=== PATIENT | female | born 1970 | race African-American/Black ===

== ENCOUNTER 2017-07-03 13:00 | Inpatient (IN) ==
--- NOTE | 2017-07-02 17:09 | History & Physical Report ---
*Admission Date: 07/02/17 <Estela Horton 07/02/17 17:25> *Chief complaint: sore throat <Estela Horton 07/02/17 17:25> *History of present illness: Ms Rutledge is a 47 year old female who presented to [facility] office with a 2 day history with a sore throat. The pain became worse today; she has been unable to eat or drink and is having difficulty swallowing, talking and opening her mouth. The pain has increased and is now severe. She has had a fever today. She denies cough, RN, chest congestion. She does have PND.. To note: patient did work a full day prior to coming to the office. CBC in the office revealed a WBC of 10.4 with 84% Grans and 12.3% Lymphs. Strep test was negative. Patient was also seen by Dr. Zamora. Patient was then adm to [facility] for IV ABX, pain management and steroids. See orders <Estela Horton 07/02/17 17:25> [facility] History Medical History: Denies:: Atherosclerotic Heart Disease, Cancer, Chronic Obstructive Pulmonary Disease (COPD), Diabetes Mellitus Type 2, Gastroesophageal Reflux Disease(GERD), Hypertension <Estela Horton 07/02/17 17:25> Other Surgeries: Yes: Appendectomy, Hysterectomy-Partial, Tubal Ligation < Estela Horton 07/02/17 17:25> - *Social History Smoking Status: Current every day smoker <Estela Horton 07/02/17 17:25> Tobacco Type: cigarettes <Estela Horton 07/02/17 17:25> Occupational Status: employed <Estela Horton 07/02/17 17:25> *Family Hx:: no Cancer, no Coronary Artery Disease <Estela Horton 07/02/17 17:25> Review of Systems - Constitutional Reports fever(s), Denies body ache(s), Denies headache(s) <Estela Horton 02/08 17:25> - ENT Reports difficulty swallowing, Reports facial pain, Reports mouth pain, Reports neck pain, Reports pain with swallowing, Reports post nasal drip, Reports sore throat, Reports throat swelling, Denies dizziness, Denies ear pain <Estela Horton 07/02/17 17:25> - *Cardiovascular Denies chest pain, Denies shortness of breath <Estela Horton 07/02/17 17:25> - *Respiratory Denies chest congestion, Denies cough, Denies shortness of breath <Estela Horton 07/02/17 17:25> - *Gastrointestinal Reports difficulty swallowing, Denies abdominal pain, Denies constipation, Denies nausea, Denies vomiting <Estela Horton 07/02/17 17:25> - *Genitourinary Reports absent period, Denies difficulty urinating <Estela Horton 07/02/17 17:25> - *Musculoskeletal Denies joint pain, Denies back pain <Estela Horton 07/02/17 17:25> - *Neurologic Denies behavioral changes, Denies unsteadiness, Denies lack of coordination < Estela Horton 07/02/17 17:25> Meds Home Medications Medication Instructions Recorded Confirmed Type No Known Home Medications [No 07/02/17 07/02/17 History Known Home Medications] <Wesley Trent 07/02/17 17:27> Allergies Allergy/AdvReac Type Severity Reaction Status Date / Time No Known Allergies Allergy Unverified 03/11/17 14:53 <Wesley Trent 07/02/17 17:27> Exam Vital signs and Labs for Last 24 Hours: Temp Pulse Resp BP Pulse Ox 99.0 F 93 H 24 123/79 100 07/02/17 17:14 07/02/17 17:14 07/02/17 17:14 07/02/17 17:14 07/02/17 17:14 <Wesley Trent 07/02/17 17:27> I & O for Last 24 hours: Intake & Output 06/30/17 07/01/17 07/02/17 07/03/17 11:59 11:59 11:59 11:59 Weight 175 lb 0.999 oz <Wesley Trent 07/02/17 17:27> - Constitutional mild distress <Estela Horton 07/02/17 17:25> Comments: Appears not to feel well; difficulty with handling her secretions <Estela Horton 07/02/17 17:25> - *Routine HEENT Exam Head: Present: normocephalic, atraumatic <Estela Horton 07/02/17 17:25> Eye: Present: PERRL. Absent: scleral injection <Saskia Hortonhy 07/02/17 17: 25> ENT: Present: mucous membranes moist, external ear normal, TM's clear bilaterally <Saskia Hortonhy 07/02/17 17:25> Comments: Patient can just barely open her mouth. OP erythema but cannot identify tonsils <Saskia Hortonhy 07/02/17 17:25> - *Routine Neck Exam Present: lymphadenopathy, tenderness, swelling. Absent: thyromegaly <Saskia Hortonhy 07/02/17 17:25> Comments: Tender LAD> on the right <Saskia Hortonhy 07/02/17 17:25> - *Routine Respiratory Exam Present: CTA bilaterally <SolEstela 07/02/17 17:25> Comments: good bilateral air movement <SolEstela 07/02/17 17:25> - *Routine Cardiovascular Exam Present: RRR <[facility] 07/02/17 17:25> - *Routine Abdominal Exam Present: soft, normoactive bowel sounds. Absent: tenderness <SolEstela 07/02/17 17:25> - *Routine Extremities Exam Present: full ROM. Absent: edema <SolEstela 07/02/17 17:25> - *Routine Neurological Exam Present: alert, oriented X3 <[facility] 07/02/17 17:25> Assessment and Plan (1) Pharyngitis Current visit: Yes Status: Acute Category: Medical Code(s): J02.9 - Acute pharyngitis, unspecified (2) Pharyngeal dysphagia Current visit: Yes Status: Acute Category: Medical Code(s): R13.13 - Dysphagia, pharyngeal phase (3) Pharyngeal or nasopharyngeal edema Current visit: Yes Status: Acute Category: Medical Code(s): J39.2 - Other diseases of pharynx (4) Pharyngeal pain Current visit: Yes Status: Acute Category: Medical Code(s): J39.2 - Other diseases of pharynx <[place],Wesley - 07/02/17 17:27> (1) Pharyngitis Current visit: Yes Status: Acute Category: Medical Code(s): J02.9 - Acute pharyngitis, unspecified (2) Pharyngeal dysphagia Current visit: Yes Status: Acute Category: Medical Code(s): R13.13 - Dysphagia, pharyngeal phase (3) Pharyngeal or nasopharyngeal edema Current visit: Yes Status: Acute Category: Medical Code(s): J39.2 - Other diseases of pharynx (4) Pharyngeal pain Current visit: Yes Status: Acute Category: Medical Code(s): J39.2 - Other diseases of pharynx <Estela Horton - 07/02/17 16:59> - Assessment and plan all Dx Assessment and Plan for all problems:: Saw patient, agree with above note. <Wesley Trent - 07/02/17 17:27> Rocephin, IVF, IV steriods, CT of the neck, ENT referral, Pain management <Estela Horton - 07/02/17 17:25>
[2017-07-02 17:39] LABS: Albumin Level 3.7 gm/dL (3.4-5.0); Albumin/Globulin Ratio 0.9 (1.1-1.8); Anion Gap 13.5 mEq/L (5-15); Bilirubin,Total 0.4 mg/dL (0.2-1.0); Calcium 9.2 mg/dL (8.5-10.1); Potassium 3.5 mmoL/L (3.5-5.1); Total Protein,Serum 7.7 gm/dL (6.4-8.2)
--- NOTE | 2017-07-03 07:28 | Pharmacy Consult Notes ---
[facility] Pharmacy VTE Monitoring - Patient Demographics Admission date: 07/02/17 Report Date: 07/03/17 Time: 07:28 Allergies/Adverse Reactions: Patient Allergies No Known Allergies Allergy (Unverified 03/11/17 14:53) Height: 1.78 m Weight: 79.407 kg Patient Problems: Current Active Problems Pharyngitis (Acute) Pharyngeal dysphagia (Acute) Pharyngeal or nasopharyngeal edema (Acute) Pharyngeal pain (Acute) - VTE Risk Labs: VTE Related Lab Results BUN 8 mg/dL (7-18) 07/02/17 17:15 Creatinine 1.20 mg/dL (0.55-1.02) H 07/02/17 17:15 Estimated Creat Clear 73 mL/min (0-300) 07/02/17 17:15 Was VTE Risk Assessment Performed: Yes VTE Score: 1 VTE Risk Level: Very Low Risk - Prophylaxis VTE Prophylaxis Ordered?: Yes Types of VTE Prophylaxis: TEDS Knee High Location of Applied Device: Bilateral Lower Extremeties - VTE Diagnosis Confirmed Treatment or plan recommended: Continue Current Treatment
--- NOTE | 2017-07-03 08:22 | Progress Note ---
<Pau Patrick - Last Filed: 07/03/17 08:17> Internal Medicine - PN: Subj *Date: 07/03/17 *Time: 08:17 Interval history: Patient is still unable to swallow her own saliva today. She states she is slightly better than yesterday. She can utter a few words today. Exam Vital signs and Labs for Last 24 Hours: Temp Pulse Resp BP Pulse Ox 99.4 F 89 18 105/63 96 07/03/17 08:02 07/03/17 08:02 07/03/17 08:02 07/03/17 08:02 07/03/17 08:02 Laboratory Results - last 24 hr 07/02/17 17:15: Sodium 141, Potassium 3.5, Chloride 107, Carbon Dioxide 24, Anion Gap 13.5, BUN 8, Creatinine 1.20 H, Estimated Creat Clear 73, Estimated GFR 48 L, Est GFR ( Amer) 59, Glucose 119 H, Calcium 9.2, Total Bilirubin 0.4, AST 19, ALT 28, Alkaline Phosphatase 87, Total Protein 7.7, Albumin 3.7, Globulin 4.0 H, Albumin/Globulin Ratio 0.9 L I & O for Last 24 hours: Intake & Output 06/30/17 07/01/17 07/02/17 07/03/17 11:59 11:59 11:59 11:59 Intake Total 1157 / 1157 Balance 1157 / 1157 Weight 175 lb 1 oz - Constitutional no acute distress - *Routine HEENT Exam Comments: still cannot open mouth enough to see her throat - *Routine Respiratory Exam Present: CTA bilaterally - *Routine Cardiovascular Exam Present: RRR - *Routine Abdominal Exam Present: soft, normoactive bowel sounds. Absent: tenderness - *Routine Extremities Exam Absent: edema Assessment and Plan (1) Pharyngitis Current visit: Yes Status: Acute Category: Medical Code(s): J02.9 - Acute pharyngitis, unspecified (2) Pharyngeal dysphagia Current visit: Yes Status: Acute Category: Medical Code(s): R13.13 - Dysphagia, pharyngeal phase (3) Pharyngeal or nasopharyngeal edema Current visit: Yes Status: Acute Category: Medical Code(s): J39.2 - Other diseases of pharynx (4) Pharyngeal pain Current visit: Yes Status: Acute Category: Medical Code(s): J39.2 - Other diseases of pharynx - Assessment and plan all Dx Assessment and Plan for all problems:: Still awaiting soft tissue CT of the neck. Will consult ENT today. <Wesley Trent - Last Filed: 07/03/17 08:39> Internal Medicine - PN: Subj *Date: 07/03/17 *Time: 08:36 Exam Vital signs and Labs for Last 24 Hours: Temp Pulse Resp BP Pulse Ox 99.4 F 89 18 105/63 96 07/03/17 08:02 07/03/17 08:02 07/03/17 08:02 07/03/17 08:02 07/03/17 08:02 Laboratory Results - last 24 hr 07/02/17 17:15: Sodium 141, Potassium 3.5, Chloride 107, Carbon Dioxide 24, Anion Gap 13.5, BUN 8, Creatinine 1.20 H, Estimated Creat Clear 73, Estimated GFR 48 L, Est GFR ( Amer) 59, Glucose 119 H, Calcium 9.2, Total Bilirubin 0.4, AST 19, ALT 28, Alkaline Phosphatase 87, Total Protein 7.7, Albumin 3.7, Globulin 4.0 H, Albumin/Globulin Ratio 0.9 L I & O for Last 24 hours: Intake & Output 06/30/17 07/01/17 07/02/17 07/03/17 11:59 11:59 11:59 11:59 Intake Total 1157 / 1157 Balance 1157 / 1157 Weight 175 lb 1 oz Radiology Reports for the Last 24 Hours: CT of neck shows probable 2 cm wide, right sided soft tissue abscess Assessment and Plan (1) Pharyngitis Current visit: Yes Status: Acute Category: Medical Code(s): J02.9 - Acute pharyngitis, unspecified (2) Pharyngeal dysphagia Current visit: Yes Status: Acute Category: Medical Code(s): R13.13 - Dysphagia, pharyngeal phase (3) Pharyngeal or nasopharyngeal edema Current visit: Yes Status: Acute Category: Medical Code(s): J39.2 - Other diseases of pharynx (4) Pharyngeal pain Current visit: Yes Status: Acute Category: Medical Code(s): J39.2 - Other diseases of pharynx (5) Abscess of lymph node of neck Current visit: Yes Status: Acute Category: Medical Code(s): L04.0 - Acute lymphadenitis of face, head and neck - Assessment and plan all Dx Assessment and Plan for all problems:: Saw patient, agree with above note. Made her NPO now pending ENT evaluation.
--- NOTE | 2017-07-03 13:47 | Consult Report ---
*Admission Date: 07/02/17 *History of present illness: Ms Rutledge is a 47 year old female who presented to [facility] office with a 2 day history with a sore throat. The pain became worse today; she has been unable to eat or drink and is having difficulty swallowing, talking and opening her mouth. The pain has increased and is now severe. She has had a fever today. She denies cough, RN, chest congestion. She does have PND.. To note: patient did work a full day prior to coming to the office. CBC in the office revealed a WBC of 10.4 with 84% Grans and 12.3% Lymphs. Strep test was negative. Patient was also seen by Dr. Zamora. Patient was then adm to [facility] for IV ABX, pain management and steroids. See orders Review of Systems - ENT Reports difficulty swallowing, Reports neck lump, Reports neck pain, Reports pain with swallowing, Reports sore throat, Reports throat swelling - *Neurologic Denies behavioral changes, Denies unsteadiness, Denies dizziness, Denies headache(s), Denies lack of coordination [facility] History Medical History: Denies:: Atherosclerotic Heart Disease, Cancer, Chronic Obstructive Pulmonary Disease (COPD), Diabetes Mellitus Type 1, Diabetes Mellitus Type 2, Gastroesophageal Reflux Disease(GERD), Hypertension, MRSA Other Surgeries: Yes: Appendectomy, Hysterectomy-Partial, Tubal Ligation Amputation: No - *Social History Educational Level: Completed High School Smoking Status: Current every day smoker Tobacco Type: cigarettes # Packs/Day (cigarettes): 1 #Yrs smoked (if former smoker): 30 Alcohol Intake: current Alcohol Intake Frequency:: 0-2 drinks per day Occupational Status: employed Housing: house Household Members: spouse - Psychiatric History Expresses thoughts of harming self/others: None Suicide Plan Description: No Plan *Family Hx:: no Cancer, no Coronary Artery Disease Meds Home Medications Medication Instructions Recorded Confirmed Type Cyclobenzaprine HCl 10 mg PO Q6HP PRN 07/03/17 07/03/17 History [Cyclobenzaprine 10mg Tab] Ibuprofen [Ibuprofen 800mg Tab] 800 mg PO BIDP PRN 07/03/17 07/03/17 History Allergies Allergy/AdvReac Type Severity Reaction Status Date / Time No Known Allergies Allergy Unverified 03/11/17 14:53 Exam Vital signs and Labs for Last 24 Hours: Temp Pulse Resp BP Pulse Ox 99.4 F 89 18 105/63 96 07/03/17 08:02 07/03/17 08:02 07/03/17 08:02 07/03/17 08:02 07/03/17 08:02 Laboratory Results - last 24 hr 07/02/17 17:15: Sodium 141, Potassium 3.5, Chloride 107, Carbon Dioxide 24, Anion Gap 13.5, BUN 8, Creatinine 1.20 H, Estimated Creat Clear 73, Estimated GFR 48 L, Est GFR ( Amer) 59, Glucose 119 H, Calcium 9.2, Total Bilirubin 0.4, AST 19, ALT 28, Alkaline Phosphatase 87, Total Protein 7.7, Albumin 3.7, Globulin 4.0 H, Albumin/Globulin Ratio 0.9 L I & O for Last 24 hours: Intake & Output 06/30/17 07/01/17 07/02/17 07/03/17 23:59 23:59 23:59 23:59 Intake Total 1397 / 1397 Balance 1397 / 1397 Weight 175 lb 0.999 oz 175 lb 1 oz - *Routine HEENT Exam Comments: This patient was examined on July 03, 2017 because of a 2 day history of dysphagia and pain in the right side of her throat. She apparently had right dental work done on July 01 and then developed the symptoms of soreness in the right side of her face and right neck as well as the dysphagia and was admitted to hospital for treatment on July 02, 2017. She was started on Rocephin and Medrol. When I examined her on July 03 at 12 noon she was feeling some better. A 2.5 cm mass in the right submandibular region of the neck as well as a 2 cm lump in the right jugulodigastric region of the neck. There was also some shotty cervical lymphadenopathy in the left side of the neck. There was evidence of some limitation and full opening of the mouth, possibly due to her recent dental work. Some minimal pharyngitis but the remainder of the head and neck examination was normal. A CT of the neck confirmed the clinical finding of some swelling in the right submandibular triangle as well as some cervical lymphadenopathy and a possible small abscess in the right jugulodigastric region of the neck. Given the fact that she had responded to the initial treatment, we started her back on fluids and she was able to swallow her fluids much better than she had prior to the admission to hospital. I recommended that she be allowed to continue on clear to full fluid diet. I advised that she be started on Ancef 1 g every 8 H, continue on the Medrol 80 mg every 8 hours for at least another 3 doses and then if she continues to improve be tapered off that medication. As well advised that she start on metronidazole 500 mg every 8 hours and continue on that medication for 10 days. Also recommend that she stay on a Keflex for 10 days if she is discharged from hospital. We will monitor her closely, hopefully she will continue to improve but I would be inclined to keep her in hospital over the weekend, and repeat CT neck on June. Results - Labs 07/02/17 17:15 Laboratory Results - last 24 hr 07/02/17 17:15: Sodium 141, Potassium 3.5, Chloride 107, Carbon Dioxide 24, Anion Gap 13.5, BUN 8, Creatinine 1.20 H, Estimated Creat Clear 73, Estimated GFR 48 L, Est GFR ( Amer) 59, Glucose 119 H, Calcium 9.2, Total Bilirubin 0.4, AST 19, ALT 28, Alkaline Phosphatase 87, Total Protein 7.7, Albumin 3.7, Globulin 4.0 H, Albumin/Globulin Ratio 0.9 L Assessment and Plan (1) Pharyngitis Current visit: Yes Status: Acute Category: Medical Code(s): J02.9 - Acute pharyngitis, unspecified (2) Pharyngeal dysphagia Current visit: Yes Status: Acute Category: Medical Code(s): R13.13 - Dysphagia, pharyngeal phase (3) Pharyngeal or nasopharyngeal edema Current visit: Yes Status: Acute Category: Medical Code(s): J39.2 - Other diseases of pharynx (4) Pharyngeal pain Current visit: Yes Status: Acute Category: Medical Code(s): J39.2 - Other diseases of pharynx (5) Abscess of lymph node of neck Current visit: Yes Status: Acute Category: Medical Code(s): L04.0 - Acute lymphadenitis of face, head and neck - Assessment and plan all Dx Assessment and Plan for all problems:: see note
[2017-07-04 07:33] LABS: Anion Gap 10.9 mEq/L (5-15); Potassium 3.9 mmoL/L (3.5-5.1)
--- NOTE | 2017-07-04 08:01 | Progress Note ---
<Pau Patrick - Last Filed: 07/04/17 07:59> Internal Medicine - PN: Subj *Date: 07/04/17 *Time: 07:59 Interval history: The patient is feeling much better today. She can swallow and has been able to eat some of her liquid diet. She did get 3-4 hours of sleep last night. She states her pain has improved. She is able to talk today. Exam Vital signs and Labs for Last 24 Hours: Temp Pulse Resp BP Pulse Ox 97.6 F 74 18 101/60 98 07/04/17 07:50 07/04/17 07:50 07/04/17 07:50 07/04/17 07:50 07/04/17 07:50 Laboratory Results - last 24 hr 07/04/17 06:33: Sodium 142, Potassium 3.9, Chloride 110 H, Carbon Dioxide 25, Anion Gap 10.9, BUN 7, Creatinine 0.93 D, Estimated Creat Clear 95, Estimated GFR 65, Est GFR ( Amer) 79 D, Glucose 181 H I & O for Last 24 hours: Intake & Output 07/01/17 07/02/17 07/03/17 07/04/17 11:59 11:59 11:59 11:59 Intake Total 1157 / 1157 3857 / 3857 Balance 1157 / 1157 3857 / 3857 Weight 175 lb 1 oz - Constitutional no acute distress - *Routine HEENT Exam ENT: Present: mucous membranes moist - *Routine Neck Exam Present: supple, full ROM, lymphadenopathy - *Routine Respiratory Exam Present: CTA bilaterally - *Routine Cardiovascular Exam Present: RRR - *Routine Abdominal Exam Present: soft, normoactive bowel sounds. Absent: tenderness - *Routine Extremities Exam Absent: edema Assessment and Plan (1) Pharyngitis Current visit: Yes Status: Acute Category: Medical Code(s): J02.9 - Acute pharyngitis, unspecified (2) Pharyngeal dysphagia Current visit: Yes Status: Acute Category: Medical Code(s): R13.13 - Dysphagia, pharyngeal phase (3) Pharyngeal or nasopharyngeal edema Current visit: Yes Status: Acute Category: Medical Code(s): J39.2 - Other diseases of pharynx (4) Pharyngeal pain Current visit: Yes Status: Acute Category: Medical Code(s): J39.2 - Other diseases of pharynx (5) Abscess of lymph node of neck Current visit: Yes Status: Acute Category: Medical Code(s): L04.0 - Acute lymphadenitis of face, head and neck - Assessment and plan all Dx Assessment and Plan for all problems:: We will continue IV antibiotics. Will discuss advancing the patient's diet with Dr. Trent. <Wesley Trent - Last Filed: 07/04/17 08:45> Internal Medicine - PN: Subj *Date: 07/04/17 *Time: 08:44 Exam Vital signs and Labs for Last 24 Hours: Temp Pulse Resp BP Pulse Ox 97.6 F 74 18 101/60 98 07/04/17 07:50 07/04/17 07:50 07/04/17 07:50 07/04/17 07:50 07/04/17 07:50 Laboratory Results - last 24 hr 07/04/17 06:33: WBC 22.5 H*, RBC 3.70 L, Hgb 11.6 L, Hct 35.2 L, MCV 95.2, MCH 31.3 H, MCHC 32.9, RDW 13.0, Plt Count 229, MPV 8.1, Neut % (Auto) 94.5 H, Lymph % (Auto) 3.4 L, [place] % (Auto) 1.7, Eos % (Auto) 0.2, Baso % (Auto) 0.0 L, Neut # (Auto) 21.3 H, Lymph # (Auto) 0.8, [place] # (Auto) 0.4, Eos # (Auto) 0.0, Baso # (Auto) 0.0 07/04/17 06:33: Sodium 142, Potassium 3.9, Chloride 110 H, Carbon Dioxide 25, Anion Gap 10.9, BUN 7, Creatinine 0.93 D, Estimated Creat Clear 95, Estimated GFR 65, Est GFR ( Amer) 79 D, Glucose 181 H I & O for Last 24 hours: Intake & Output 07/01/17 07/02/17 07/03/17 07/04/17 11:59 11:59 11:59 11:59 Intake Total 1157 / 1157 3857 / 3857 Balance 1157 / 1157 3857 / 3857 Weight 175 lb 1 oz Assessment and Plan (1) Pharyngitis Current visit: Yes Status: Acute Category: Medical Code(s): J02.9 - Acute pharyngitis, unspecified (2) Pharyngeal dysphagia Current visit: Yes Status: Acute Category: Medical Code(s): R13.13 - Dysphagia, pharyngeal phase (3) Pharyngeal or nasopharyngeal edema Current visit: Yes Status: Acute Category: Medical Code(s): J39.2 - Other diseases of pharynx (4) Pharyngeal pain Current visit: Yes Status: Acute Category: Medical Code(s): J39.2 - Other diseases of pharynx (5) Abscess of lymph node of neck Current visit: Yes Status: Acute Category: Medical Code(s): L04.0 - Acute lymphadenitis of face, head and neck - Assessment and plan all Dx Assessment and Plan for all problems:: Saw patient, agree with above note, she has improved, continue current care, advance diet.
[2017-07-04 08:03] LABS: White Blood Count 22.5 K/mm3 (4.8-10.8)
[2017-07-04 08:04] LABS: Hematocrit 35.2 % (37.0-47.0); Hemoglobin 11.6 g/dL (12.2-16.2); Mean Corpuscular HGB Conc 32.9 g/dL (31.8-35.4); Mean Corpuscular Hemoglobin 31.3 pg (27.0-31.2); Mean Corpuscular Volume 95.2 fl (81-99)
[2017-07-04 08:05] LABS: Eosinophils % 0.2 % (0.1-12.0); Lymphocytes # 0.8 K/mm3 (0.7-4.5); Lymphocytes % 3.4 K/mm3 (10-50); Mean Platelet Volume 8.1 fl (7.4-10.4); Monocytes % 1.7 % (1.7-9.3); Neutrophils # 21.3 K/mm3 (1.8-7.8); Neutrophils % 94.5 % (37.0-80.0); Platelet Count 229 K/mm3 (142-424)
[2017-07-04 08:06] LABS: Monocytes # 0.4 K/mm3 (0.1-1.0)
[2017-07-04 12:00] LABS: Lymphocytes % 4 % (10-50); Monocytes % 3 % (2-9); Neutrophils % 90 % (42-76); Total Cells Counted 100
--- NOTE | 2017-07-05 08:29 | Progress Note ---
Internal Medicine - PN: Subj *Date: 07/05/17 *Time: 08:27 Interval history: Patient feels a little better today, still has quite a bit of neck pain when chewing food, swallowing has improved. Exam Vital signs and Labs for Last 24 Hours: Temp Pulse Resp BP Pulse Ox 98.4 F 55 L 16 99/58 100 07/05/17 08:00 07/05/17 08:00 07/05/17 08:00 07/05/17 08:00 07/05/17 08:00 Laboratory Results - last 24 hr 07/04/17 06:33: Total Counted 100, Neutrophils % (Manual) 90 H, Band Neutrophils % 3.0, Lymphocytes % (Manual) 4 L, Monocytes % (Manual) 3, Platelet Estimate Normal I & O for Last 24 hours: Intake & Output 07/02/17 07/03/17 07/04/17 07/05/17 11:59 11:59 11:59 11:59 Intake Total 1157 / 1157 3957 / 3957 1520 / 1520 Output Total 1200 / 1200 Balance 1157 / 1157 3957 / 3957 320 / 320 Weight 175 lb 1 oz 175 lb 0.999 oz - Constitutional no acute distress - *Routine HEENT Exam ENT: Present: mucous membranes moist - *Routine Neck Exam Present: supple (less tenderness to palpation today) - *Routine Respiratory Exam Present: CTA bilaterally - *Routine Cardiovascular Exam Present: RRR Assessment and Plan (1) Pharyngitis Current visit: Yes Status: Acute Category: Medical Code(s): J02.9 - Acute pharyngitis, unspecified (2) Pharyngeal dysphagia Current visit: Yes Status: Acute Category: Medical Code(s): R13.13 - Dysphagia, pharyngeal phase (3) Pharyngeal or nasopharyngeal edema Current visit: Yes Status: Acute Category: Medical Code(s): J39.2 - Other diseases of pharynx (4) Pharyngeal pain Current visit: Yes Status: Acute Category: Medical Code(s): J39.2 - Other diseases of pharynx (5) Abscess of lymph node of neck Current visit: Yes Status: Acute Category: Medical Code(s): L04.0 - Acute lymphadenitis of face, head and neck - Assessment and plan all Dx Assessment and Plan for all problems:: Patient is slowly improving. Will saline lock IVF and change to PO steroids, continue IVF antibiotics.
--- NOTE | 2017-07-06 08:58 | Progress Note ---
Internal Medicine - PN: Subj *Date: 07/06/17 *Time: 08:55 Interval history: Patient reports having more pain over the right side of her neck last night, received an extra dose of Morphine, pain is better today, had trouble sleeping last night. Exam Vital signs and Labs for Last 24 Hours: Temp Pulse Resp BP Pulse Ox 98.7 F 53 L 18 118/63 99 07/06/17 07:56 07/06/17 07:56 07/06/17 07:56 07/06/17 07:56 07/06/17 07:56 I & O for Last 24 hours: Intake & Output 07/03/17 07/04/17 07/05/17 07/06/17 11:59 11:59 11:59 11:59 Intake Total 1157 / 1157 3957 / 3957 1620 / 1620 3017 / 3017 Output Total 1200 / 1200 1550 / 1550 Balance 1157 / 1157 3957 / 3957 420 / 420 1467 / 1467 Weight 175 lb 1 oz 175 lb 0.999 oz - Constitutional no acute distress - *Routine HEENT Exam ENT: Present: mucous membranes moist - *Routine Neck Exam Present: supple, lymphadenopathy (unchanged from yesterday) - *Routine Extremities Exam Absent: cyanosis, clubbing, edema Assessment and Plan (1) Pharyngitis Current visit: Yes Status: Acute Category: Medical Code(s): J02.9 - Acute pharyngitis, unspecified (2) Pharyngeal dysphagia Current visit: Yes Status: Acute Category: Medical Code(s): R13.13 - Dysphagia, pharyngeal phase (3) Pharyngeal or nasopharyngeal edema Current visit: Yes Status: Acute Category: Medical Code(s): J39.2 - Other diseases of pharynx (4) Pharyngeal pain Current visit: Yes Status: Acute Category: Medical Code(s): J39.2 - Other diseases of pharynx (5) Abscess of lymph node of neck Current visit: Yes Status: Acute Category: Medical Code(s): L04.0 - Acute lymphadenitis of face, head and neck - Assessment and plan all Dx Assessment and Plan for all problems:: Plan to repeat CT neck tomorrow, will change steroid dosing time due to insomnia last night, add OANH wilcoxe.
--- NOTE | 2017-07-06 12:00 | Progress Note ---
Internal Medicine - PN: Subj *Date: 07/06/17 *Time: 11:59 Exam Vital signs and Labs for Last 24 Hours: Temp Pulse Resp BP Pulse Ox 98.7 F 53 L 18 118/63 99 07/06/17 07:56 07/06/17 07:56 07/06/17 07:56 07/06/17 07:56 07/06/17 07:56 I & O for Last 24 hours: Intake & Output 07/03/17 07/04/17 07/05/17 07/06/17 23:59 23:59 23:59 23:59 Intake Total 2076 4197 / 4197 2577 / 2577 900 / 900 Output Total 800 / 800 1350 / 1350 600 / 600 Balance 2076 3397 / 3397 1227 / 1227 300 / 300 Weight 79.407 kg 79.407 kg Assessment and Plan (1) Pharyngitis Current visit: Yes Status: Acute Category: Medical Code(s): J02.9 - Acute pharyngitis, unspecified (2) Pharyngeal dysphagia Current visit: Yes Status: Acute Category: Medical Code(s): R13.13 - Dysphagia, pharyngeal phase (3) Pharyngeal or nasopharyngeal edema Current visit: Yes Status: Acute Category: Medical Code(s): J39.2 - Other diseases of pharynx (4) Pharyngeal pain Current visit: Yes Status: Acute Category: Medical Code(s): J39.2 - Other diseases of pharynx (5) Abscess of lymph node of neck Current visit: Yes Status: Acute Category: Medical Code(s): L04.0 - Acute lymphadenitis of face, head and neck The patient's infection will respond to the chosen ABx?: Yes Is the patient receiving the right drug, dose, and route?: Yes Could a more targeted ABx be ordered?: No
[2017-07-07 04:52] LABS: Blood Urea Nitrogen 11 mg/dL (7-18); Carbon Dioxide 29 mmol/L (21.0-32.0); Glucose 112 mg/dL (74-106)
[2017-07-07 04:59] LABS: Chloride 103 mmol/L (98-107); Potassium 3.7 mmoL/L (3.5-5.1); Sodium 139 mmol/L (136-145)
[2017-07-07 05:13] LABS: Basophils % 0.3 % (0.1-2.0); Eosinophils # 0.2 K/mm3 (0.0-0.4); Eosinophils % 1.1 % (0.1-12.0); Hematocrit 39.4 % (37.0-47.0); Hemoglobin 12.8 g/dL (12.2-16.2); Lymphocytes # 4.1 K/mm3 (0.7-4.5); Lymphocytes % 28.7 K/mm3 (10-50); Mean Corpuscular HGB Conc 32.5 g/dL (31.8-35.4); Mean Corpuscular Hemoglobin 31.3 pg (27.0-31.2); Mean Corpuscular Volume 96.2 fl (81-99); Mean Platelet Volume 7.8 fl (7.4-10.4); Monocytes # 0.7 K/mm3 (0.1-1.0); Neutrophils # 9.3 K/mm3 (1.8-7.8); Neutrophils % 64.8 % (37.0-80.0); Platelet Count 246 K/mm3 (142-424); Red Cell Distribution Width 12.9 % (11.5-17.5); White Blood Count 14.3 K/mm3 (4.8-10.8)
--- NOTE | 2017-07-07 08:06 | Progress Note ---
<Estela Horton - Last Filed: 07/07/17 08:03> Internal Medicine - PN: Subj *Date: 07/07/17 *Time: 08:03 Interval history: Patient states she is feeling better today. She states she had the best sleep that she has had since being in the hospital. She is able to eat mostly full liquids. Can handle her secretions. She feels her pain is better. She has been receiving pain medicines [id number]. She is breathing without difficulty. Bowels have not moved. She is voiding QS. Exam Vital signs and Labs for Last 24 Hours: Temp Pulse Resp BP Pulse Ox 98.4 F 58 L 16 99/60 100 07/07/17 04:00 07/07/17 04:00 07/07/17 04:00 07/07/17 04:00 07/07/17 04:00 Laboratory Results - last 24 hr 07/07/17 04:20: WBC 14.3 H D, RBC 4.10 L, Hgb 12.8, Hct 39.4, MCV 96.2, MCH 31.3 H, MCHC 32.5, RDW 12.9, Plt Count 246, MPV 7.8, Neut % (Auto) 64.8, Lymph % (Auto) 28.7, Collin % (Auto) 5.0, Eos % (Auto) 1.1, Baso % (Auto) 0.3, Neut # ( Auto) 9.3 H, Lymph # (Auto) 4.1, Collin # (Auto) 0.7, Eos # (Auto) 0.2, Baso # ( Auto) 0.0 07/07/17 04:20: Sodium 139, Potassium 3.7, Chloride 103, Carbon Dioxide 29, Anion Gap Not Reportable, BUN 11 D, Creatinine 0.83, Estimated Creat Clear 106 , Estimated GFR 74, Est GFR ( Amer) 90, Glucose 112 H I & O for Last 24 hours: Intake & Output 07/04/17 07/05/17 07/06/17 07/07/17 11:59 11:59 11:59 11:59 Intake Total 3957 / 3957 1620 / 1620 3117 / 3117 1640 / 1640 Output Total 1200 / 1200 1550 / 1550 1300 / 1300 Balance 3957 / 3957 420 / 420 1567 / 1567 340 / 340 Weight 175 lb 0.999 oz - Constitutional no acute distress Comments: Awakened for exam. She appears comfortable. - *Routine Neck Exam Comments: Last right sided neck edema. Less tender to palpation. - *Routine Respiratory Exam Present: CTA bilaterally (Anteriorly and posteriorly) - *Routine Cardiovascular Exam Present: RRR - *Routine Abdominal Exam Present: soft. Absent: tenderness, distended - *Routine Extremities Exam Absent: edema Comments: OANH barth on Assessment and Plan (1) Pharyngitis Current visit: Yes Status: Acute Category: Medical Code(s): J02.9 - Acute pharyngitis, unspecified (2) Pharyngeal dysphagia Current visit: Yes Status: Acute Category: Medical Code(s): R13.13 - Dysphagia, pharyngeal phase (3) Pharyngeal or nasopharyngeal edema Current visit: Yes Status: Acute Category: Medical Code(s): J39.2 - Other diseases of pharynx (4) Pharyngeal pain Current visit: Yes Status: Acute Category: Medical Code(s): J39.2 - Other diseases of pharynx (5) Abscess of lymph node of neck Current visit: Yes Status: Acute Category: Medical Code(s): L04.0 - Acute lymphadenitis of face, head and neck - Assessment and plan all Dx Assessment and Plan for all problems:: To have repeat CT of the neck today. White blood cell count has decreased. Requiring frequent pain administration. <Wesley Trent - Last Filed: 07/07/17 08:20> Internal Medicine - PN: Subj *Date: 07/07/17 *Time: 08:20 Exam Vital signs and Labs for Last 24 Hours: Temp Pulse Resp BP Pulse Ox 98.4 F 58 L 16 99/60 100 07/07/17 04:00 07/07/17 04:00 07/07/17 04:00 07/07/17 04:00 07/07/17 04:00 Laboratory Results - last 24 hr 07/07/17 04:20: WBC 14.3 H D, RBC 4.10 L, Hgb 12.8, Hct 39.4, MCV 96.2, MCH 31.3 H, MCHC 32.5, RDW 12.9, Plt Count 246, MPV 7.8, Neut % (Auto) 64.8, Lymph % (Auto) 28.7, Collin % (Auto) 5.0, Eos % (Auto) 1.1, Baso % (Auto) 0.3, Neut # ( Auto) 9.3 H, Lymph # (Auto) 4.1, Collin # (Auto) 0.7, Eos # (Auto) 0.2, Baso # ( Auto) 0.0 07/07/17 04:20: Sodium 139, Potassium 3.7, Chloride 103, Carbon Dioxide 29, Anion Gap Not Reportable, BUN 11 D, Creatinine 0.83, Estimated Creat Clear 106 , Estimated GFR 74, Est GFR ( Amer) 90, Glucose 112 H I & O for Last 24 hours: Intake & Output 07/04/17 07/05/17 07/06/17 07/07/17 11:59 11:59 11:59 11:59 Intake Total 3957 / 3957 1620 / 1620 3117 / 3117 1640 / 1640 Output Total 1200 / 1200 1550 / 1550 1300 / 1300 Balance 3957 / 3957 420 / 420 1567 / 1567 340 / 340 Weight 175 lb 0.999 oz Assessment and Plan (1) Pharyngitis Current visit: Yes Status: Acute Category: Medical Code(s): J02.9 - Acute pharyngitis, unspecified (2) Pharyngeal dysphagia Current visit: Yes Status: Acute Category: Medical Code(s): R13.13 - Dysphagia, pharyngeal phase (3) Pharyngeal or nasopharyngeal edema Current visit: Yes Status: Acute Category: Medical Code(s): J39.2 - Other diseases of pharynx (4) Pharyngeal pain Current visit: Yes Status: Acute Category: Medical Code(s): J39.2 - Other diseases of pharynx (5) Abscess of lymph node of neck Current visit: Yes Status: Acute Category: Medical Code(s): L04.0 - Acute lymphadenitis of face, head and neck - Assessment and plan all Dx Assessment and Plan for all problems:: Saw patient, agree with above note.
[2017-07-07 20:19] VITALS: BP 120/60
--- NOTE | 2017-07-08 15:04 | Discharge Summary ---
General - General Admission date: 07/02/17 Discharge date: 07/07/17 HPI HPI: Ms Rutledge is a 47 year old female who presented to A office with a 2 day history of a sore throat. The pain became worse today; she has been unable to eat or drink and is having difficulty swallowing, talking and opening her mouth. The pain has increased and is now severe. She has had a fever today. She denies cough, RN, chest congestion. She does have PND.. To note: patient did work a full day prior to coming to the office. CBC in the office revealed a WBC of 10.4 with 84% Grans and 12.3% Lymphs. Strep test was negative. Patient was also seen by Dr. Zamora. Patient was then admitted to [facility] for IV ABX, pain management and steroids. Hospital Course Hospital Course: A CT of the neck was ordered and ENT was consulted. The CT of the neck showed a probable 2 cm wide, right sided soft tissue abscess. Dr. Leyva saw the patient and recommended changing antibiotics to Cefazolin and Flagyl. He advised non operative treatment. After a few days, the patient was able to swallow and speak. Her pain improved slightly. Her diet was advanced to full liquids. She was changed to PO steroids. She continued to require pain medication consistently. She had a repeat CT of the neck showing a worsening abscess. The case was discussed with Dr. Leyva. He recommended transfer to ENT for further management. Dr. Trent spoke with Dr. Castaneda in ENT who accepted the patient in transfer. Objective Vital signs: Temp Pulse Resp BP Pulse Ox 99.3 F 59 L 16 120/60 97 07/07/17 20:00 07/07/17 20:00 07/07/17 20:00 07/07/17 20:00 07/07/17 20:00 Narrative: - Constitutional mild distress Comments: Appears not to feel well; difficulty with handling her secretions - *Routine HEENT Exam Head: Present: normocephalic, atraumatic Eye: Present: PERRL. Absent: scleral injection ENT: Present: mucous membranes moist, external ear normal, TM's clear bilaterally Comments: Patient can just barely open her mouth. OP erythema but cannot identify tonsils - *Routine Neck Exam Present: lymphadenopathy, tenderness, swelling. Absent: thyromegaly Comments: Tender LAD> on the right - *Routine Respiratory Exam Present: CTA bilaterally Comments: good bilateral air movement - *Routine Cardiovascular Exam Present: RRR - *Routine Abdominal Exam Present: soft, normoactive bowel sounds. Absent: tenderness - *Routine Extremities Exam Present: full ROM. Absent: edema - *Routine Neurological Exam Present: alert, oriented X3 DS: Diagnosis - Discharge Diagnosis (1) Abscess of lymph node of neck Status: Acute (2) Pharyngitis Status: Acute (3) Pharyngeal dysphagia Start time: Status: Acute (4) Pharyngeal or nasopharyngeal edema Status: Acute (5) Pharyngeal pain Status: Acute Discharge Plan - Patient Discharge Instructions ACTIVITY: Continue current activity DIET: continue same diet Additional Instructions: Transfer to , Dr. Ney Castaneda ENT accepting physician Patient Instructions: DI for Oropharyngeal Dysphagia - Follow up Plan Follow up with: Wesley Trent MD [Staff Physician] - Disposition: Xfer Short-Term Hosp Prescriptions/Medication Reconciliation: Discontinued Cyclobenzaprine HCl [Cyclobenzaprine 10mg Tab] 10 mg PO Q6HP PRN PRN Reason: Muscle Pain Ibuprofen [Ibuprofen 800mg Tab] 800 mg PO BIDP PRN PRN Reason: PAIN
== END 2017-07-08 00:29 | disposition short-term general hospital (02) ==
LOC: 2ND
PROVIDERS: ADMIT Family Medicine; ATTEND Family Medicine

== ENCOUNTER → 2017-10-02 16:34 | Outpatient (CLI) | payer BC, SELFPAY ==
--- NOTE | 2017-10-02 16:40 | XR_ITS ---
XR knee LT 3V HISTORY: ITS.REASON: ACUTE PAIN OF LEFT KNEE ORDERING PHYSICIAN: Wesley Trent MD PATIENT AGE: 47 years COMPARISON: None FINDINGS: No fracture or dislocation. No lytic or blastic change. Normal mineralization. No significant arthritic changes evident. No other significant findings IMPRESSION: Negative Knee
== END ==
PROVIDERS: PCP Family Medicine; Visit Provider Family Medicine
DX: M25.562 Pain in left knee (principal)
CPT/HCPCS: 73562

== ENCOUNTER → 2018-01-07 16:30 | Outpatient (CLI) | payer BC, SELFPAY ==
--- NOTE | 2018-01-07 | XR_ITS ---
EXAM: XR cervical spine 2V HISTORY: ITS.REASON: PAIN, NO KNOWN INJURY ORDERING PHYSICIAN: Estela Horton PATIENT AGE: 47 years COMPARISON: None FINDINGS: Study is somewhat limited as the patient's hair causing some overlying artifact. There is straightening of the cervical lordosis which may be due to patient positioning or muscle spasm. There is mild degenerative disc disease at C4-C5. No fracture or dislocation. There is mild cervical curvature convex right. IMPRESSION: Straightening of lordosis with mild scoliosis which may be due to positioning or muscle spasm. Mild degenerative disc disease C4 C5
== END ==
PROVIDERS: PCP Family Medicine; Visit Provider Nurse Practitioner Family
DX: M54.2 Cervicalgia (principal)
CPT/HCPCS: 72040

== ENCOUNTER → 2018-01-08 17:35 | Outpatient (CLI) | payer BC, SELFPAY ==
--- NOTE | 2018-01-08 17:46 | XR_ITS ---
EXAM: XR cervical spine 1V HISTORY: ITS.REASON: Neck pain ORDERING PHYSICIAN: Estela Horton PATIENT AGE: 47 years COMPARISON: None FINDINGS: Study is somewhat limited as the patient's hair causing some overlying artifact. There is straightening of the cervical lordosis which may be due to patient positioning or muscle spasm. There is mild degenerative disc disease at C4-C5. No fracture or dislocation. There is mild cervical curvature convex right. IMPRESSION: Straightening of lordosis with mild scoliosis which may be due to positioning or muscle spasm. Mild degenerative disc disease C4 C5
== END ==
PROVIDERS: PCP Family Medicine; Visit Provider Nurse Practitioner Family
DX: M54.2 Cervicalgia (principal)
CPT/HCPCS: 72020

== ENCOUNTER 2018-06-22 16:00 | Outpatient (RCR) | payer BC, SELFPAY ==
--- NOTE | 2018-06-02 16:47 | HMH.PTOPEV ---
PT Outpatient Evaluation Rehab PT Outpatient Evaluation Start: 06/02/18 16:29 Freq: Status: Active Protocol: Document 06/02/18 16:32 [email or web address] (Rec: 06/02/18 16:46 [email or web address] [id number]) Electronically Signed By Kwame Aguero, PT 06/02/18 16:32 Outpatient Therapy Subjective History Subjective History This is the inital Physical therapy evaluation for Tanja Rutledge. Pt is a 48 y /o female referred to PT for c /o R sided cervical pain. Pt rpeorts she has long history of multiple bouts of muscle spasms in R side of neck. Pt rpeorts this bout began ~ 2 weeks ago insidiously. Pt reports pain w/ movement. Chief Complaint Pain Spasms Symptom Type Sharp Shooting Symptoms Relieved By Prescription Meds Symptoms Aggravated By Physical Activity Twisting Prior Functional Limitations None Current Functional Limitations Lifting Housework Sleeping Recreation Activity Symptom Description Constant but Variable Level of pain today (0-10) 3 Pain scale - at its best (0-10) 2 Pain scale - at its worst (0-10) 8 Cervical Eval Palpation Cervical Muscles R Cervical Paraspinal R Upper Trapezius Cervical/Thoracic Palpation Findings Tenderness Spasm Trigger Point Posture Head/C-Spine Posture Sitting Position Neutral Position Head/C-Spine Posture Standing Position Neutral Position Flexibility Deficits Upper Trapezius Muscle Length (R) Moderate Tightness Passive Joint Mobility Cervical PIVM Dec: R C2/3 R C3/4 R C4/5 R C5/6 R C6/7 AROM Cervical Spine Extension Active Range of 35 Motion (degrees) Cervical Spine Flexion Active Range of 50 Motion (degrees) Cervical Spine Right Lateral Flexion 40 Active Range of Motion (degrees) Cervical Spine Left Lateral Flexion 40 w/ pain on R Active Range of Motion (degrees) Cervical Spine Right Rotation Active 50 Range of Motion (degrees) Cervical Spine Left Rotation Active 50 Range of Motion (degrees) Special Test C-Spine Foraminal Compression (Spurling) Negative Left Test
== END 2018-06-22 16:05 | disposition home or self-care (01) ==
LOC: PT 16:00
PROVIDERS: Visit Provider Family Medicine
DX: M54.2 Cervicalgia (principal)
CPT/HCPCS: 97010; 97014; 97110; 97140; 97163; G0283

== ENCOUNTER → 2019-08-24 15:46 | Outpatient (CLI) | payer BC, SELFPAY ==
--- NOTE | 2019-08-24 | XR_ITS ---
PROCEDURE: XR CERVICAL SPINE 5V CLINICAL INDICATION: Pain COMPARISON: [id number] XR cervical spine 1V from 01/08/2018 FINDINGS: Normal alignment. Mild degenerative disc disease at C4-C5. The foramina are widely patent. No acute fracture or dislocation. No lytic or blastic change. There is straightening of the cervical lordosis. IMPRESSION: Degenerative disc disease C4-C5 otherwise negative Dictated by: Jeremy Nielsen MD 08/24/2019 16:51 Electronically signed by Jeremy Nielsen MD in [place] 08/24/2019 16:51
== END ==
PROVIDERS: PCP Family Medicine; Visit Provider Family Medicine
DX: M53.82 Other specified dorsopathies, cervical region (principal)
CPT/HCPCS: 72050

== ENCOUNTER 2019-09-04 23:14 | Emergency (ER) | payer BC, SELFPAY ==
[2019-09-04 23:25] VITALS: BP 119/76; PULSE 103; RESP 18; TEMP 37; O2SAT 98; BMI 27.0
--- NOTE | 2019-09-04 23:31 | XR_ITS ---
PROCEDURE: XR ANKLE RT MIN 3V CLINICAL INDICATION: fall Pain and swelling following injury COMPARISON: XR FOOT RT MIN 3V from 09/04/2019 FINDINGS: No fracture or dislocation. No lytic or blastic change. There is normal mineralization. The joint spaces are well-preserved. No significant degenerative/arthritic changes. No erosive changes evident. Other findings:Minimal subcutaneous calcification anterior lower leg IMPRESSION: No acute findings. Dictated by: Jeremy Nielsen MD 09/05/2019 07:13 Electronically signed by Jeremy Nielsen MD in [place] 09/05/2019 07:13
--- NOTE | 2019-09-04 23:31 | XR_ITS ---
PROCEDURE: XR FOOT RT MIN 3V CLINICAL INDICATION: fall Posttraumatic pain COMPARISON: No exams were available for comparison FINDINGS: No fracture or dislocation. No lytic or blastic change. There is normal mineralization. The joint spaces are well-preserved. No significant degenerative/arthritic changes. No erosive changes evident. Other findings:None. IMPRESSION: No acute findings. Dictated by: Jeremy Nielsen MD 09/05/2019 07:12 Electronically signed by Jeremy Nielsen MD in [place] 09/05/2019 07:12
--- NOTE | 2019-09-04 23:41 | HMH.EDGENADL ---
ED Disposition Clinical Impression: Right ankle sprain Qualifiers: Encounter type: initial encounter Involved ligament of ankle: anterior talofibular ligament Qualified Code(s): S93.491A - Sprain of other ligament of right ankle, initial encounter Disposition: Home, Self-Care Condition on Discharge: Good Instructions: DI for Ankle Sprain, How to Use Crutches Additional Instructions: Use crutches for 4-5 days. Ice 20 minutes 4-5 times a day and elevate ankle for 2 days. Use air cast for 2 weeks. Tylenol 3 for pain. Follow-up with primary care provider next week. Additional instructions for CONTROLLED SUBSTANCES: You have been prescribed a medication that is a controlled substance. Controlled substances include pain medications known as opiates and sedative nerve medications known as benzodiazepines. Tramadol, fioricet, and gabapentin are also controlled substances. Some common opiates include: Codeine (such as Tylenol #3) Hydrocodone (Vicodin, Lortab, Lorcet, [place]) Oxycodone (Percocet, Percodan, Oxycodone, Oxy IR) Some common benzodiazepines include: Diazepam (Valium) Lorazepam (Ativan) Alprazolam (Xanax) Clonazepam (Klonopin) Oxazepam (Serax) All of these controlled substances are highly addictive and frequently abused. Misuse can and frequently does lead to addiction as well as overdose and . Medication should be stored in a locked cabinet or other secure storage unit. Do not store the medication in a motor vehicle. Short term supplies, 3 days or less, are prescribed because of the highly addictive nature of the medication. Any of the controlled substance medication NOT taken should be disposed of properly and NOT SAVED. The recommended method of disposing of unused medications is: Place the medicines in a sealable plastic bag. If the medicine is a solid, crush it or add water to dissolve it. Add something undesirable (cat litter, coffee grounds, etc.) Dispose of sealed bag in household trash Do not flush or pour unused medicines down a sink or drain. Controlled substances should not be shared, given away or sold. Because of the addictive nature and frequent abuse, these medications are sometimes stolen. These medications should be kept in a safe place where they cannot be stolen. Do not keep them in your car or purse. Lost or stolen prescriptions for controlled substances WILL NOT BE REFILLED in this emergency department, regardless of whether a police report was filed. Referrals: Wesley Trent MD [Primary Care Provider] - - Critical Care Critical Care Time: No Attestation: On 09/04/19, the high probability of a clinically significant, sudden or life threatening deterioration of the following system(s) required my full and direct attention, intervention and personal management. The time I documented below is in addition to time spent performing reported procedures but includes the following listed in this critical care notation. Medical Decision Making - Vito Inquiry Pt receiving controlled substance: Yes Vito was queried for this patient: Yes Reference #:: [id number] Risks and benefits of using a controlled substance: were discussed with pt by me Comment: 0 rxs. Vital Signs: 09/04/19 23:25 Temperature 98.6 F Temperature Source Oral Pulse Rate [Right] 103 H Respiratory Rate 18 Blood Pressure [Left Arm] 119/76 Blood Pressure Mean [Left Arm] 90 Blood Pressure Position [Left Arm] Sitting 02 Sat by Pulse Oximetry 98 Oxygen Delivery Method Room Air Orders (Tests/Meds): ED MEDICATIONS Discontinued Medications Generic Name Dose Route Start Last Admin Trade Name Freq PRN Reason Stop Dose Admin Acetaminophen/Codeine Phosphate 1 derrick 09/04/19 23:53 Acetaminophen W/Codeine #3 Take Home Pack (6) PO 09/04/19 23:54 ONCE ONE Hydrocodone Bitart/Acetaminophen 1 tab 09/04/19 23:52 [place] 5/325mg Tablet PO 09/04/19 23:53 ONCE ONE ORDERS Categ
--- NOTE | 2019-09-04 23:49 | PC.NURSE ---
foot elevated and ice applied
[2019-09-05 00:13] VITALS: BP 121/83; PULSE 98; RESP 16; TEMP 37; O2SAT 98
== END 2019-09-05 00:15 | disposition home or self-care (01) ==
PROVIDERS: Emergency Provider Emergency Medicine; PCP Family Medicine
DX: S93.491A Sprain of other ligament of right ankle, initial encounter (principal); X50.1XXA Overexertion from prolonged static or awkward postures, initial encounter; Y93.01 Activity, walking, marching and hiking; Y92.017 Garden or yard in single-family (private) house as the place of occurrence of the external cause; F17.210 Nicotine dependence, cigarettes, uncomplicated; Z90.49 Acquired absence of other specified parts of digestive tract; Z90.79 Acquired absence of other genital organ(s)
CPT/HCPCS: 29515; 73610; 73630; 99283

== ENCOUNTER 2020-04-08 11:09 | Emergency (ER) | payer BC, SELFPAY ==
[2020-04-08 11:10] VITALS: BP 158/95; PULSE 88; RESP 16; TEMP 36.8; O2SAT 100; BMI 27.1
--- NOTE | 2020-04-08 11:30 | XR_ITS ---
PROCEDURE: XR SHOULDER LT MIN 2V Referring Doctor: Shemar Andersen Patient Age:50Y CLINICAL INDICATION: PAIN No trauma COMPARISON: No exams were available for comparison FINDINGS: Left shoulder3-views: AP internal and external rotation along with Y-view The left shoulder is intact with no fracture nor dislocation. The humeral head and neck appear intact with known glenohumeral joint. I would only note that there is some very slight sclerotic changes and possible subchondral cyst at the junction of the humeral head and greater tuberosity-this could reflect some impingement changes other impingement symptoms? AC joint is intact. Scapula intact. Bones well mineralized. Victor left lung clear. IMPRESSION: No acute findings.. No fracture or dislocation/glenohumeral joint intact Only question some subtle very minor sclerotic changes and likely small subchondral cystic feature at the superior base of the humeral head, at its junction with greater tuberosity. These can be seen with impingement sequela; does patient have impingement symptoms? Dictated by: Shiva Pretty MD 04/08/2020 14:23 Shiva Pretty MD in [place] 04/08/2020 14:23
--- NOTE | 2020-04-08 11:44 | HMH.EDUTC ---
[facility] [place] Disposition Clinical Impression: Left shoulder pain Qualifiers: Chronicity: acute Qualified Code(s): M25.512 - Pain in left shoulder Disposition: Home, Self-Care Condition on Discharge: Good Instructions: DI for Shoulder Pain Additional Instructions: Go home and rest. It would be best if you rested tomorrow too. No heavy lifting. No twisting. Take the oral medications as directed. The muscle relaxer (robaxin) will make you drowsy, so don't drive or operate heavy machinery after taking it. Don't start the oral steroids (medrol dose pack) until tomorrow, since you had the shots in here today. Follow up with your regular doctor. GO TO THE ER FOR ANY WORSENING SYMPTOMS OR CONCERN Prescriptions: methylPREDNISolone [Medrol] 4 mg PO DIRECTED 6 Days #21 tab.ds.pk Transmission Status: Received by [facility] Methocarbamol [Robaxin 500mg Tab] 500 mg PO BIDP PRN #30 tab PRN Reason: Muscle Spasm Transmission Status: Received by [facility] Referrals: Wesley Trent MD [Primary Care Provider] - Oksana Mojica MD [Physician] - Forms: Work/School Release Time of Disposition: 12:46 Medical Decision Making - Medical Records Medical records reviewed: No: I reviewed the patient's medical records. - Vito Inquiry Pt receiving controlled substance: No Vital Signs: 04/08/20 11:10 04/08/20 12:41 Temperature 98.2 F 98.2 F Temperature Source Oral Pulse Rate 88 Pulse Rate [Right Brachial] 88 Respiratory Rate 16 16 Blood Pressure 158/95 H Blood Pressure [Right Arm] 158/95 H Blood Pressure Mean [Right Arm] 116 Blood Pressure Source [Right Arm] Automatic Cuff Blood Pressure Position [Right Arm] Sitting 02 Sat by Pulse Oximetry 100 Oxygen Delivery Method Room Air Orders (Tests/Meds): ED MEDICATIONS Discontinued Medications Generic Name Dose Route Start Last Admin Trade Name Freq PRN Reason Stop Dose Admin Ketorolac Tromethamine 60 mg 04/08/20 12:21 04/08/20 12:30 Ketorolac 60mg/2ml Vial IM 04/08/20 12:22 60 mg ONCE ONE Administration Methylprednisolone Sodium Succinate 125 mg 04/08/20 12:21 04/08/20 12:30 Methylprednisolone Sod Succ 125mg Vial IM 04/08/20 12:22 125 mg ONCE ONE Administration [facility] [place] HPI - General Stated complaint: lt shoulder pain no ao Time Seen by Provider: 04/08/20 11:45 Mode of Arrival: Ambulatory Source of Information: Patient Limitations: No Limitations Description of Symptoms (Recalled from Triage Doc. by RN): PATIENT C/O PAIN IN LEFT SHOULDER, NO KNOWN INJURY HEENT Symptoms (Recalled from RN notes): No Resp Symptoms (Recalled from RN notes): No Skin Symptoms (Recalled from RN notes): No MS Symptoms (Recalled from RN notes): Yes Functional Status (Recalled from RN notes): WNL - History of Present Illness Provider Complaint: She c/o left shoulder pain for the past 2 days. She denies any known injury. - Related Data Previous Rx's Medication Instructions Recorded Methocarbamol [Robaxin 500mg Tab] 500 mg PO BIDP PRN #30 tab 04/08/20 methylPREDNISolone [Medrol] 4 mg PO DIRECTED 6 Days #21 04/08/20 tab.ds.pk Allergies Allergy/AdvReac Type Severity Reaction Status Date / Time No Known Allergies Allergy Verified 04/08/20 11:35 - Worker's Comp Is this a Worker's Comp case?: No [facility] History - Hepatitis A Screen Drug use history?: No High risk sexual behaviors?: No History of sexually transmitted infection?: No Currently employed?: No Childcare worker?: No Do you have indoor plumbing?: Yes Do you have electricity?: Yes Attestation statement:: This patient has been screened for Hepatitis A risk factors. I have reviewed the patient's past medical history: Yes Medical History: Denies:: Atherosclerotic Heart Disease, Cancer, Chronic Obstructive Pulmonary Disease (COPD), Diabetes Mellitus Type 1, Diabetes Mellitus Type 2, Gastroesophageal Reflux Disease(GERD), Hypertension, MRS
--- NOTE | 2020-04-08 12:09 | ECG_ITS ---
APPROVED REPORT Exam: Resting ECG HR:83 bpm ECG Measurements Heart Rate 83 AXES DC 104 P 31 QRSd 82 QRS 27 QT 348 T 18 QTc 408 Conclusion Sinus rhythm with sinus arrhythmia with short DC NSSTTW changes Abnormal ECG Electronically signed by : Bharath [employer], 04/10/2020 19:41:43
[2020-04-08 12:41] VITALS: BP 158/95; PULSE 88; RESP 16; TEMP 36.8; O2SAT 100
--- NOTE | 2020-04-08 12:50 | PC.NURSE ---
UPON LEAVING, PATIENT HANDED A BOTTLE OF BACLOFEN TO STAFF ASKING STAFF TO DISPOSE OF IT. STAFF NOTIFIED Shyanne CANO FROM PHARMACY WHO STATES THEY WILL DISPOSE OF THE MEDICATION
--- NOTE | 2020-04-08 13:55 | PC.NURSE ---
PREVIOUSLY NOTED MEDICATION GIVEN TO Shyanne CANO IN PHARMACY FOR DISPOSAL AT THIS TIME
== END 2020-04-08 12:51 | disposition home or self-care (01) ==
PROVIDERS: Emergency Provider Nurse Practitioner Family; PCP Family Medicine
DX: M25.512 Pain in left shoulder (principal); J44.9 Chronic obstructive pulmonary disease, unspecified; K21.9 Gastro-esophageal reflux disease without esophagitis; I10 Essential (primary) hypertension; F17.210 Nicotine dependence, cigarettes, uncomplicated; Z79.899 Other long term (current) drug therapy
CPT/HCPCS: 73030; 93005; 96372; 99202; G0463

== ENCOUNTER → 2020-06-01 15:17 | Outpatient (CLI) | payer BC, SELFPAY ==
--- NOTE | 2020-06-01 15:21 | US_ITS ---
PROCEDURE: US EXTREMITY LT LIMITED CLINICAL INDICATION: NEOPLASM OF UNCERTAIN BEHAVIOR OF AXILLARY TAIL OF LT BREAST COMPARISON: No exams were available for comparison FINDINGS: There are multiple lymph nodes present in the left axillary region. The palpable area measures 1.8 cm and appears to represent a lymph node with a central fatty hilum. Other nodes are present measuring up to 2.6 cm. No cystic lesions are evident. IMPRESSION: Mildly prominent left axillary lymph nodes Dictated by: Jeremy Nielsen MD 06/01/2020 16:17 Jeremy Nielsen MD in [place] 06/01/2020 16:17
== END ==
PROVIDERS: PCP Family Medicine; Visit Provider Family Medicine
DX: D48.62 Neoplasm of uncertain behavior of left breast (principal)
CPT/HCPCS: 76882

== ENCOUNTER → 2020-07-11 16:48 | Outpatient (CLI) | payer BC, SELFPAY ==
--- NOTE | 2020-07-11 | CA_ITS ---
APPROVED REPORT Bilateral Lower Extremity Venous Study for DVT. Fire Information Officer: DEMARCUS/MARCO Indications Varicose Veins Vein Imaging GAS (R): compressive, spontaneous, phasic, augmentation CFV (L): compressive, spontaneous, phasic, augmentation FEM (L): compressive, spontaneous, phasic, augmentation POP (L): compressive, spontaneous, phasic, augmentation DFV (L): compressive, spontaneous, phasic, augmentation PTV (L): compressive, spontaneous, phasic, augmentation GSV (L): compressive, spontaneous, phasic, augmentation Peroneals (L):compressive, spontaneous, phasic, augmentation GAS (L): compressive, spontaneous, phasic, augmentation Findings Color flow duplex demonstrates no evidence of DVT of the following left lower extremity Veins:Common Femoral Vein, Femoral Vein, Popliteal Vein, Posterior Tibial Veins, Peroneal Veins, Deep Femoral Vein. Conclusion No evidence of DVT or superficial thrombophlebitis in the veins scanned of the left lower extremity. Electronically signed by : Jeremy Nielsen MD 07/11/2020 18:30:02
== END ==
PROVIDERS: PCP Family Medicine; Visit Provider Nurse Practitioner Family
DX: M79.605 Pain in left leg (principal)
CPT/HCPCS: 93971

== ENCOUNTER 2020-10-30 16:08 | Emergency (ER) | payer BC, SELFPAY ==
[2020-10-30 17:20] VITALS: BP 156/94; PULSE 76; RESP 22; TEMP 37.1; O2SAT 99; BMI 26.4
--- NOTE | 2020-10-30 17:52 | HMH.EDUTC ---
[facility] [place] Impression: Contact dermatitis Qualifiers: Contact dermatitis type: allergic Contact dermatitis trigger: unspecified trigger Qualified Code(s): L23.9 - Allergic contact dermatitis, unspecified cause Disposition: Home, Self-Care Condition on Discharge: Good Instructions: DI for Contact Dermatitis Additional Instructions: Avoid contact with the offending substance (poison efraín). Don't start the oral steroids until tomorrow. Don't put the topical steroids (triamcinolone) on your face or your groin. Follow up with your regular doctor. GO TO THE ER FOR ANY WORSENING SYMPTOMS OR CONCERNS Prescriptions: methylPREDNISolone [Medrol] 4 mg PO DIRECTED 6 Days #21 tab.ds.pk Transmission Status: Received by [facility] Triamcinolone Acetonide 1 applicatio TP TIDP PRN 7 Days #1 tube PRN Reason: Itching Transmission Status: Received by [facility] Referrals: Wesley Trent MD [Primary Care Provider] - Time of Disposition: 18:18 Medical Decision Making - Medical Records Medical records reviewed: No: I reviewed the patient's medical records. - Vito Inquiry Pt receiving controlled substance: No Vital Signs: 10/30/20 17:20 10/30/20 18:22 Temperature 98.8 F 98 F Temperature Source Oral Pulse Rate 72 Pulse Rate [Left] 76 Respiratory Rate 22 20 Blood Pressure 000/00 L Blood Pressure [Right Arm] 156/94 H Blood Pressure Mean [Right Arm] 114 02 Sat by Pulse Oximetry 99 Orders (Tests/Meds): ED MEDICATIONS Discontinued Medications Generic Name Dose Route Start Last Admin Trade Name Freq PRN Reason Stop Dose Admin Methylprednisolone Sodium Succinate 125 mg 10/30/20 17:54 10/30/20 18:09 Methylprednisolone Sod Succ 125mg Vial IM 10/30/20 17:55 125 mg ONCE ONE Administration [facility] [place] - General Stated complaint: rash arms and legs Time Seen by Provider: 10/30/20 17:52 Mode of Arrival: Ambulatory Source of Information: Patient Limitations: No Limitations Description of Symptoms (Recalled from Triage Doc. by RN): pt c/o an itching rash on her legs, feet and arms. it appears as bug bites. HEENT Symptoms (Recalled from RN notes): No Resp Symptoms (Recalled from RN notes): No Skin Symptoms (Recalled from RN notes): Yes (rash on legs, feet and arms.) MS Symptoms (Recalled from RN notes): No Functional Status (Recalled from RN notes): na - History of Present Illness Provider Complaint: She states that over the past 2 days she has began to itch (basically all over) and have a rash on her legs and arms. She denies any known contact with poison efraín or anything else that she might be allergic to. She denies any cough, congestion, fever/chills/body aches. She has been vaccinated against covid. - Related Data Previous Rx's Medication Instructions Recorded Methocarbamol [Robaxin 500mg Tab] 500 mg PO BIDP PRN #30 tab 04/08/20 methylPREDNISolone [Medrol] 4 mg PO DIRECTED 6 Days #21 04/08/20 tab.ds.pk Triamcinolone Acetonide 1 applicatio TP TIDP PRN 7 Days #1 10/30/20 tube methylPREDNISolone [Medrol] 4 mg PO DIRECTED 6 Days #21 10/30/20 tab.ds.pk Allergies Allergy/AdvReac Type Severity Reaction Status Date / Time No Known Allergies Allergy Verified 10/30/20 17:23 - Worker's Comp Is this a Worker's Comp case?: No [facility] History - Hepatitis A Screen Drug use history?: No High risk sexual behaviors?: No History of sexually transmitted infection?: No Currently employed?: No Childcare worker?: No Do you have indoor plumbing?: Yes Do you have electricity?: Yes Attestation statement:: This patient has been screened for Hepatitis A risk factors. I have reviewed the patient's past medical history: Yes Medical History: Denies:: Atherosclerotic Heart Disease, Cancer, Chronic Obstructive Pulmonary Disease (COPD), Diabetes Mellitus Type 1, Diabetes Mellitus Type 2, Gastroesophageal Reflux Disease(GERD), Hypertension, MRSA
[2020-10-30 18:22] VITALS: BP 000/00; PULSE 72; RESP 20; TEMP 36.6
== END 2020-10-30 18:22 | disposition home or self-care (01) ==
PROVIDERS: Emergency Provider Nurse Practitioner Family; PCP Family Medicine
DX: L23.9 Allergic contact dermatitis, unspecified cause (principal)
CPT/HCPCS: 96372; 99202; G0463

== ENCOUNTER 2021-10-21 14:00 | Emergency (ER) | payer BC, SELFPAY ==
[2021-10-21 14:09] VITALS: BP 121/88; PULSE 84; RESP 18; TEMP 36.7; O2SAT 99; BMI 26.2
--- NOTE | 2021-10-21 14:37 | HMH.EDUTC ---
[facility] [place] Disposition Clinical Impression: Viral syndrome Sinusitis Qualifiers: Sinusitis location: unspecified location Chronicity: acute Recurrence: non-recurrent Qualified Code(s): J01.90 - Acute sinusitis, unspecified Disposition: Home, Self-Care Condition on Discharge: Good Instructions: DI for Sinusitis, DI for COVID-19 (Suspected or Confirmed ), Preventing the Spread of Coronavirus Discharge Instructions Additional Instructions: Drink plenty of fluids. Take tylenol or ibuprofen for pain or fever. Take the medications as directed. Follow up with your regular doctor. GO TO THE ER FOR ANY WORSENING SYMPTOMS Quarantine until you know the results of your covid-19 test. Notify your school or workplace of your results and follow their instructions regarding return to work/school. Prescriptions: Benzonatate [Benzonatate 100mg cap] 100 mg PO TIDP PRN #30 cap PRN Reason: Cough Transmission Status: Sent to [facility] predniSONE [Deltasone 10mg tablet] 10 mg PO BID 3 Days #6 tab Transmission Status: Sent to [facility] Azithromycin [Z-Finn 250mg Tab*] 250 mg PO UD DOSE PK #6 tab Transmission Status: Sent to [facility] Referrals: Wesley Trent MD [Primary Care Provider] - Forms: Work/School Release Time of Disposition: 14:56 Medical Decision Making - Medical Records Medical records reviewed: No: I reviewed the patient's medical records. - Vito Inquiry Pt receiving controlled substance: No Vital Signs: 10/21/21 14:09 10/21/21 15:06 Temperature 98.1 F 98.1 F Temperature Source Oral Pulse Rate 84 Pulse Rate [Left] 84 Respiratory Rate 18 18 Blood Pressure 121/88 Blood Pressure [Right Arm] 121/88 Blood Pressure Mean [Right Arm] 99 02 Sat by Pulse Oximetry 99 Orders (Tests/Meds): ORDERS Category Date Time Status Covid-19 Nasal PCR ([facility]) Routine Lab 10/21/21 14:57 Received [facility] [place] HPI - General Stated complaint: sore throat, h/a, congestion Time Seen by Provider: 10/21/21 14:37 Mode of Arrival: Ambulatory Source of Information: Patient Limitations: No Limitations Description of Symptoms (Recalled from Triage Doc. by RN): patient comes in today with complaints of a headcold. patient states that she spent the night with her son last night and the air conditioner messed with her. HEENT Symptoms (Recalled from RN notes): Yes Resp Symptoms (Recalled from RN notes): Yes Skin Symptoms (Recalled from RN notes): No MS Symptoms (Recalled from RN notes): No Functional Status (Recalled from RN notes): n/a - History of Present Illness Provider Complaint: She states that since this morning she has had sinus congestion, sinus pressure, chills and she has felt bad. - Related Data Previous Rx's Medication Instructions Recorded Methocarbamol [Robaxin 500mg Tab] 500 mg PO BIDP PRN #30 tab 04/08/20 methylPREDNISolone [Medrol] 4 mg PO DIRECTED 6 Days #21 04/08/20 tab.ds.pk Triamcinolone Acetonide 1 applicatio TP TIDP PRN 7 Days #1 10/30/20 tube methylPREDNISolone [Medrol] 4 mg PO DIRECTED 6 Days #21 10/30/20 tab.ds.pk Azithromycin [Z-Finn 250mg Tab*] 250 mg PO UD DOSE PK #6 tab 10/21/21 Benzonatate [Benzonatate 100mg 100 mg PO TIDP PRN #30 cap 10/21/21 cap] predniSONE [Deltasone 10mg tablet] 10 mg PO BID 3 Days #6 tab 10/21/21 Allergies Allergy/AdvReac Type Severity Reaction Status Date / Time No Known Allergies Allergy Verified 10/21/21 14:14 - Worker's Comp Is this a Worker's Comp case?: No [facility] History - Hepatitis A Screen Attestation statement:: This patient has been screened for Hepatitis A risk factors. I have reviewed the patient's past medical history: Yes Medical History: Denies:: Atherosclerotic Heart Disease, Cancer, Chronic Obstructive Pulmonary Disease (COPD), Diabetes Mellitus Type 1, Diabetes Mellitus Type 2, Gastroesophageal Reflux Disease(GERD), Hypertension, MRSA Other Surgeries: Y
[2021-10-21 15:06] VITALS: BP 121/88; PULSE 84; RESP 18; TEMP 36.7
== END 2021-10-21 15:06 | disposition home or self-care (01) ==
PROVIDERS: Emergency Provider Nurse Practitioner Family; PCP Family Medicine
DX: U07.1 COVID-19 (principal); J01.90 Acute sinusitis, unspecified
CPT/HCPCS: 99212; C9803; G0463; U0003; U0005

== ENCOUNTER → 2021-11-21 16:41 | Outpatient (CLI) | payer BC, SELFPAY | PROVIDERS: PCP Family Medicine; Visit Provider Surgery | DX: Z01.812 Encounter for preprocedural laboratory examination (principal); Z20.822 Contact with and (suspected) exposure to COVID-19; Z12.11 Encounter for screening for malignant neoplasm of colon | CPT/HCPCS: C9803; U0003; U0005 ==

== ENCOUNTER 2021-11-23 06:22 | Day surgery (SDC) | payer BC, SELFPAY ==
[2021-11-21 09:35] VITALS: BMI 26.6
[2021-11-23 06:57] VITALS: BP 107/73; PULSE 92; RESP 18; TEMP 36.2; O2SAT 99
[2021-11-23 07:25] VITALS: O2SAT 97
--- NOTE | 2021-11-23 07:34 | P.PN_ITS ---
[facility] Medical History Cyst Surgical History History of partial hysterectomy Family History Mother Family history of myocardial infarction Hyperlipidemia Father Hyperlipidemia Social History Smoking Status: Former smoker pack-years: 30 years smoked: 25 smoking status stop date: 12/29/2019 second hand exposure: Yes alcohol intake: never substance use type: denies use current occupational status: employed and other Travel in the last 8 weeks: None household members: spouse housing: house current occupational exposures/hazards: No caffeine: Yes [facility] Anesthesia Checklist Patient Identification Patient Identification: Arm Band Structural Data Admitted From: Home Planned Operative Procedure/s: colonoscopy Consent for Planned Operative Procedure(s) Verified: Yes Verified Documents: Surgical Consent and History and Physical NPO Status Verified Time NPO: 00:00 Additional verifications Anesthesia Reactions: No Airway Assessment C-Spine Mobility Assessed: Yes TMJ Mobility Assessed: Yes Dentition: Good Dentition Neurological Assessment Level of Consciousness: Awake and Alert Anesthesia Plan Anesthesia Risk discussed: Yes Anesthesia Plan: Verified ASA Class: II Anesthesia Type: MAC
[2021-11-23 08:05] VITALS: BP 105/81; PULSE 62; RESP 16; TEMP 36.3; O2SAT 97
--- NOTE | 2021-11-23 08:12 | P.PCN_ITS ---
Procedure: Date: 11/23/21 Patient Date of :: 1970 Procedure Performed:: Total colonoscopy to terminal ileum with polypectomy using biopsy forceps Indications:: Patient is a 51-year-old who presents for initial screening colonoscopy Performing Provider:: Ben London MD Referring Provider:: Wesley Trent MD Sedation:: MAC sedation Procedure:: Consent was obtained and patient was taken to endoscopy procedure room. She was positioned in lateral decubitus position. Adequate intravenous sedation was achieved with anesthesia titration propofol. Digital examination was performed which was unremarkable. Variable stiffness Olympus colonoscope was inserted via the anus. It was advanced to the cecum. She did have some redundancy of the sigmoid colon. There was some particulate liquid stool and undigested vegetable matter within the cecum. Thorough irrigation and suctioning was performed and this was able to be mostly cleared. Ileocecal valve and appendiceal orifice were identified. Colonoscope was advanced into the terminal ileum which appeared grossly normal. Colonoscope was slowly withdrawn through the colon with careful surveillance. She had some sigmoid diverticulosis. At the r ectosigmoid region there was a diminutive polyp removed in a piecemeal fashion using cold biopsy forceps. There was an adjacent possible polyp which was removed as well. In the rectum there was a tiny hyperplastic appearing polyp removed with cold biopsy forceps. Retroflexion was performed within the rectum which revealed no evidence of any pathologic internal hemorrhoids. Colonoscope was withdrawn. Findings:: Fair preparation, mostly cleared with irrigation and suctioning Rare sigmoid diverticulosis Hyperplastic appearing rectosigmoid polyps Hyperplastic appearing rectal polyp Recommendations:: Follow-up colonoscopy pending pathology. Likely within 5 years given preparation and polyps Complications:: None immediately apparent Estimated blood obtained (mL): 2
[2021-11-23 08:15] VITALS: BP 108/87; PULSE 87; RESP 16; TEMP 36.3; O2SAT 93
[2021-11-23 08:35] VITALS: BP 108/74; PULSE 80; RESP 18; TEMP 36.3; O2SAT 100
== END 2021-11-23 08:35 | disposition home or self-care (01) ==
PROVIDERS: PCP Family Medicine; Visit Provider Surgery
PROC: 0DJD8ZZ Inspection of Lower Intestinal Tract, Via Natural or Artificial Opening Endoscopic (ICD-10-PCS; CPT 45380; principal; 2021-11-23 07:30)
DX: Z12.11 Encounter for screening for malignant neoplasm of colon (principal); K63.5 Polyp of colon; Z79.899 Other long term (current) drug therapy
CPT/HCPCS: 45380; J2704

== ENCOUNTER → 2022-01-31 08:49 | Outpatient (CLI) | payer BC, SELFPAY ==
--- NOTE | 2022-01-31 08:52 | MM_ITS ---
PROCEDURE INFORMATION: Exam: MG Bilateral Screening 3D Mammography Exam date and time: 01/31/2022 8:45 AM Age: 52 years old Clinical indication: Screening examination. No family history of breast cancer. TECHNIQUE: Imaging protocol: Bilateral Screening tomosynthesis and 2D mammography including computer-aided detection (CAD) when performed. COMPARISON: 1. MG SUNDEEP DIGITAL SCREEN BILATERAL MOBILE 08/14/2017 9:24 AM 2. MG MOBILE DIGITAL SCREEN BILAT* 07/05/2015 11:07 AM FINDINGS: MAMMOGRAPHY: Breast composition: There are scattered areas of fibroglandular density. Mass: No suspicious mass. Architectural distortion: None. Calcifications: No suspicious calcifications. Asymmetric density: None. Skin thickening: None. Axillary adenopathy: None. IMPRESSION: No mammographic evidence of malignancy. Annual screening is recommended unless otherwise clinically indicated. ASSESSMENT: BI-RADS Category 1: Negative
== END ==
PROVIDERS: PCP Family Medicine; Visit Provider Family Medicine
DX: Z12.31 Encounter for screening mammogram for malignant neoplasm of breast (principal)
CPT/HCPCS: 77063; 77067

== ENCOUNTER 2022-11-08 13:01 | Emergency (ER) | payer BC, SELFPAY ==
[2022-11-08 13:02] VITALS: BP 145/82; PULSE 100; RESP 16; TEMP 36.8; O2SAT 98; BMI 26.4
--- NOTE | 2022-11-08 13:20 | EXP.UTC ---
Discharge Plan Disposition Patient Disposition: Home, Self-Care Condition: Good Prescriptions Prescriptions: New etodolac 200 mg capsule 200 mg PO Q8H PRN (Reason: pain) Qty: 20 0RF No Action cyclobenzaprine [Flexeril] 10 mg Tablet 10 mg PO DAILY peg 3350-electrolytes [Golytely] 236-22.74-6.74 -5.86 gram recon soln 240 ml PO Q10M Rx Instructions: until fecal effluent is clear Referrals Follow up/Referrals: Wesley Trent MD [Primary Care Provider] - See instructions Activity Restrictions/Add. Instructions Additional Instructions/Restrictions: *Etodolac gillian 8 hours with meal as needed for pain/inflammation *Remember you had a Toradol shot in the clinic today, which is similar to Etodolac *Not additional anti-inflammatory like Ibuprofen motrin, aleve, advil with the above amount of Etodolac. You can still take Tylenol every 4 hours as needed if you need something else for pain *Ice 20 minutes every 2 hours for the first 48 hours after the initial injury followed by moist heat every 20 minutes 3-4 times a day to affected area *Muscle relaxer every 8 hours as needed for muscle spasms but remember, it WILL cause drowsiness You cannot take it and drive, operate machinery or care for small children. *Keep this area active, no movement leads to more stiffness, However take it easy and avoid heavy lifting pushing or pulling *Follow up with you family doctor if no improvement for further treatment Clinical Impressions Clinical Impression: Muscle pain Stand Alone Forms Stand Alone Forms: Work/School Release Instructions Patient Instructions: DI for Muscle Strain, DI for Thoracic Back Pain Discharge ED Provider: Yani Flores [facility] General Stated complaint: right side pain, no accident Mode of Arrival: Ambulatory Source of Information: Patient Limitations: No Limitations Time Seen by Provider: 11/08/22 13:20 Description of Symptoms (Recalled from Triage Doc. by RN): States she was lifting tables yesterday and now something on her right side is hurting. HEENT Symptoms (Recalled from RN notes): No Resp Symptoms (Recalled from RN notes): No Skin Symptoms (Recalled from RN notes): No MS Symptoms (Recalled from RN notes): Yes Functional Status (Recalled from RN notes): wnl History of Present Illness Provider Complaint: Patient states that she has muscle pain in her right side of neck and back and is on muscle relaxers for when it flares up but yesterday she was lifting heavy tables and woke up today with pain in her right rib area States that she didnt fall or anything just thinks she has aggravated her muscle spasms/pain and wanted to come in and get something to help with the pain Denies injury denies SOA pain worse with movement Related Data Home Medications Medication Instructions Recorded Confirmed cyclobenzaprine 10 mg tablet 10 mg PO DAILY MUSCLE RELAXER 11/21/21 11/23/21 peg 3350-electrolytes 236 240 ml PO Q10M BOWEL PREP 11/23/21 11/23/21 gram-22.74 gram-6.74 gram-5.86 gram solution (Golytely) Previous Rx's Medication Instructions Recorded etodolac 200 mg capsule 200 mg PO Q8H PRN pain #20 caps 11/08/22 Allergies Allergy/AdvReac Type Severity Reaction Status Date / Time No Known Allergies Allergy Verified 11/23/21 06:56 Worker's Comp Is this a Worker's Comp case?: No [facility] Disclaimer: The information contained in this section may have been updated after the patient was seen, as this information can be updated by other users. Medical History (Updated 11/08/22 @ 13:32 by Yani Flores APRN) Cyst Surgical History History of partial hysterectomy Family History Mother Family history of myocardial infarction Hyperlipidemia Father Hyperlipidemia Social History (Updated 11/23/21 @ 07:36 by Rick Clay CRNA) Smoking Stat
[2022-11-08 13:58] VITALS: BP 145/82; PULSE 100; RESP 16; TEMP 36.8; O2SAT 98
== END 2022-11-08 13:58 | disposition home or self-care (01) ==
PROVIDERS: Emergency Provider Nurse Practitioner; PCP Family Medicine
DX: M54.2 Cervicalgia (principal); R07.81 Pleurodynia; Z87.891 Personal history of nicotine dependence; X50.0XXA Overexertion from strenuous movement or load, initial encounter
CPT/HCPCS: 96372; 99212; 99214; G0463

== ENCOUNTER 2023-03-03 18:59 | Emergency (ER) | payer BC, SELFPAY ==
[2023-03-03 20:00] VITALS: BP 118/88; PULSE 115; RESP 20; TEMP 36.8; O2SAT 99; BMI 25.9
--- NOTE | 2023-03-03 20:05 | EXP.UTC ---
Discharge Plan Disposition Patient Disposition: Home, Self-Care Condition: Good Prescriptions Prescriptions: New azithromycin [Zithromax] 250 mg tablet 250 mg PO UD DOSE PK Qty: 6 0RF Rx Instructions: Take two (2) tablets today, then one (1) tablet days #2 thru #5 benzonatate [benzonatate] 100 mg capsule 100 mg PO TIDP PRN (Reason: Cough) Qty: 30 0RF methylprednisolone 4 mg Tablets,Dose Pack 4 mg PO DIRECTED Qty: 21 0RF No Action metformin 500 mg tablet extended release 24 hr 1,000 mg PO DAILY Patient Comments: TAKE 2 TABLETS BY MOUTH ONCE DAILY Referrals Follow up/Referrals: Wesley Trent MD [Primary Care Provider] - See instructions Activity Restrictions/Add. Instructions Additional Instructions/Restrictions: Drink plenty of fluids. Take tylenol or ibuprofen for pain or fever. Take the medications as directed. Follow up with your regular doctor. GO TO THE ER FOR ANY WORSENING SYMPTOMS Clinical Impressions Clinical Impression: Acute bronchitis Stand Alone Forms Stand Alone Forms: Work/School Release Instructions Patient Instructions: Acute Bronchitis, DI for Acute Bronchitis Discharge ED Provider: Shemar Andersen [facility] General Stated complaint: congestion cough Time Seen by Provider: 03/03/23 20:05 History of Present Illness Provider Complaint: She states that for the past 2 days she has had chest congestion and a cough. She denies any chest pain. She denies fever. She has had some sinus congestion also. Related Data Home Medications Medication Instructions Recorded Confirmed metformin 500 mg tablet,extended 1,000 mg PO DAILY pre-diabetic 03/03/23 03/03/23 release 24 hr Previous Rx's Medication Instructions Recorded azithromycin 250 mg tablet 250 mg PO UD DOSE PK #6 tabs 03/03/23 (Zithromax) benzonatate 100 mg capsule 100 mg PO TIDP PRN Cough #30 caps 03/03/23 methylprednisolone 4 mg tablets in 4 mg PO DIRECTED #21 tabs 03/03/23 a dose pack Allergies Allergy/AdvReac Type Severity Reaction Status Date / Time No Known Allergies Allergy Verified 03/03/23 20:18 [facility] Disclaimer: The information contained in this section may have been updated after the patient was seen, as this information can be updated by other users. Medical History (Updated 03/03/23 @ 20:28 by Shemar Andersen APRN) Cyst Surgical History History of partial hysterectomy Family History Mother Family history of myocardial infarction Hyperlipidemia Father Hyperlipidemia Social History Smoking Status: Former smoker tobacco type: cigarettes packs per day: 1 years smoked: 25 smoking status stop date: 12/29/2019 second hand exposure: Yes alcohol intake: never substance use type: denies use current occupational status: employed and other Travel in the last 8 weeks: None household members: spouse housing: house current occupational exposures/hazards: No caffeine: Yes ROS Obtained: Yes All systems reviewed & no additional complaints except as documented Constitutional Constitutional: Reports poor appetite Eyes Eyes: Reports system reviewed and no additional complaints, except as documented ENT Ears, Nose, Mouth, and Throat: Reports as per HPI Cardiovascular Cardiovascular: Reports system reviewed and no additional complaints, except as documented and Denies chest pain Respiratory Respiratory: Denies shortness of breath, Reports chest congestion, Reports cough, Denies stridor and Denies wheezing Gastrointestinal Gastrointestingal: Reports system reviewed and no additional complaints, except as documented; Denies abdominal pain, diarrhea or vomiting Musculoskeletal Musculoskeletal: Reports system reviewed and no additional complaints, except as documented and Denies
[2023-03-03 20:46] VITALS: BP 118/88; PULSE 115; RESP 18; TEMP 36.8; O2SAT 99
== END 2023-03-03 20:46 | disposition home or self-care (01) ==
PROVIDERS: Emergency Provider Nurse Practitioner Family; PCP Family Medicine
DX: J20.9 Acute bronchitis, unspecified (principal); R05.9 Cough, unspecified; R09.89 Other specified symptoms and signs involving the circulatory and respiratory systems; R09.81 Nasal congestion; Z87.891 Personal history of nicotine dependence
CPT/HCPCS: 87635; 96372; 99212; 99214; G0463

== ENCOUNTER → 2023-03-10 17:17 | Outpatient (CLI) | payer BC, SELFPAY ==
--- NOTE | 2023-03-10 17:25 | XR_ITS ---
FINAL REPORT TECHNIQUE: Chest PA & Lateral CLINICAL HISTORY: COUGH FINDINGS: 2 views of the chest were performed on 03/10/2023. Examination was not submitted for interpretation until 4:30 PM on 03-11-2023. The heart size is normal. There is no acute cardiopulmonary process. There are no pleural effusions. There is no pneumothorax. There is a large right pneumothorax with up to 8 cm of pleural separation. There is mild shift of the mediastinal structures to the left. Left lung is clear. IMPRESSION: Large right pneumothorax with mild shift of the mediastinal structures to the left. Nakita Stewart in radiology was notified of these findings at 4:50 pm . Attempts were made to reach the on-call physician. These attempts were unsuccessful. In addition, the hospital journeyman powerhouse operator was engaged in efforts to reach the on-call physician. Reviewed, Interpreted and Dictated by Garo Douglas MD Transcribed by Rui Grady Authenticated and [facility]
== END ==
PROVIDERS: PCP Family Medicine; Visit Provider Family Medicine
DX: R05.1 Acute cough (principal)
CPT/HCPCS: 71046

== ENCOUNTER 2023-03-11 17:42 | Inpatient (IN) | payer BC, SELFPAY ==
[2023-03-11] VITALS (13 sets, daily range): BP systolic 107–158; BP diastolic 58–114; PULSE 87–108; RESP 15–34; TEMP 36.4–36.8; O2SAT 94–98; BMI 26.2
--- NOTE | 2023-03-11 17:57 | XR_ITS ---
PROCEDURE INFORMATION: Exam: XR Chest Exam date and time: 03/11/2023 5:55 PM Age: 53 years old Clinical indication: Shortness of breath; Additional info: Chest pain/soa ptx TECHNIQUE: Imaging protocol: Radiologic exam of the chest. Views: 2 views. COMPARISON: CR XR CHEST 2V 03/10/2023 5:26 PM FINDINGS: Lungs: No evidence of acute pulmonary disease or infiltrates; lung nix appear clear. Pleural spaces: No significant interval change in the large right pneumothorax. Heart/Mediastinum: Stable cardiac and mediastinal contours. Vasculature: There are calcifications of the aortic arch. Bones/joints: No evidence of acute osseous abnormalities within the visualized portions of the thoracic spine and ribs. Osseous structures appear appropriate for patient age. IMPRESSION: No significant interval change in the large right pneumothorax.
--- NOTE | 2023-03-11 19:16 | ED_ITS ---
Discharge Plan Disposition Patient Disposition: Admitted Clinical Impressions Clinical Impression: Pneumothorax on right Discharge ED Provider: Betty Banda General Adult HPI <Betty Banda DO - Last Filed: 03/11/23 23:57> General Chief complaint: Shortness of Breath/Dyspnea Stated complaint: sent by Dr. Trent Time Seen by Provider: 03/11/23 17:48 Mode of Arrival: Ambulatory Limitations: No Limitations Description of Symptoms (Recalled from ER Triage Doc. by RN): PT REPORTS ONGOING COUGH AND SHORTNESS OF BREATH. SEEN AT [facility] AND TREATED FOR BRONCHITIS ON 03/03. REPORTS NO IMPROVEMENT. SEEN BY PCP YESTERDAY. CXR SHOWS PNEUMOTHORAX. PT REPORTS SHORTNESS OF BREATH WITH EXERTION History of Present Illness HPI narrative: This patient is a 53-year-old female with a history of hyperlipidemia and diabetes presenting to the emergency department for evaluation with concern for shortness of breath. According to the patient, she has had cough for over 1 week. She was seen on 03/03/[address] [facility] and diagnosed with acute bronchitis, but she was not getting better, so she followed up with her primary care provider yesterday who ordered a chest x-ray. She was called today and told that she had a pneumothorax. On medical record review, she has a large pneumothorax on the right. She was sent here for further evaluation and management. She states that she still had some cough and shortness of breath, no other concerns. She denies any history of cardiopulmonary issues. She is not a smoker. She denies any history of collapsed lung. No trauma recently. Related Data Home Medications Medication Instructions Recorded Confirmed metformin 500 mg tablet,extended 1,000 mg PO DAILY pre-diabetic 03/03/23 03/11/23 release 24 hr atorvastatin 20 mg tablet 20 mg PO HS 03/11/23 03/11/23 Allergies Allergy/AdvReac Type Severity Reaction Status Date / Time No Known Allergies Allergy Verified 03/03/23 20:18 PFSH <Betty Banda DO - Last Filed: 03/11/23 23:57> [facility] Disclaimer: The information contained in this section may have been updated after the patient was seen, as this information can be updated by other users. Medical History Cyst Surgical History History of partial hysterectomy Family History Mother Family history of myocardial infarction Hyperlipidemia Father Hyperlipidemia Social History (Updated 03/12/23 @ 00:55 by Brittaney Zamora RN) Smoking Status: Former smoker tobacco type: cigarettes packs per day: 1 years smoked: 25 smoking status stop date: 12/29/2019 second hand exposure: Yes alcohol intake: never substance use type: denies use current occupational status: employed and other Travel in the last 8 weeks: None household members: spouse housing: house current occupational exposures/hazards: No caffeine: Yes <Betty Banda DO - Last Filed: 03/11/23 23:57> ROS Obtained: Yes All systems reviewed & no additional complaints except as documented Physical Exam <Betty Banda DO - Last Filed: 03/11/23 23:57> General General appearance: alert and in no apparent distress Head Head exam: atraumatic and normocephalic Eye Eye exam: Present normal appearance, PERRL and EOMI ENT ENT exam: Present normal exam, normal oropharynx, mucous membranes moist and normal external ear exam Neck Neck exam: Present normal inspection, full ROM and trachea midline; Absent tenderness Chest Chest inspection: Present normal inspection and symmetric chest wall rise; Absent tenderness Respiratory Respiratory exam: Present other (Diminished breath sounds on the right. Breathing comfortably in no acute distress with oxygen saturation of 97% on room air); Absent respiratory distress, wheezes, stridor, accessory muscle use or prolonged expiratory phase Cardiovascular Cardiovascular exam: Present regular rate and normal rhythm Abdominal Exam Abdominal exam: Present soft; Absent distention, tenderness or guarding Extremities Exam Extremities exam: Present normal inspection, full ROM and normal capillary refill; Absent tenderness or edema Back Exam Back exam: Present normal inspection and full ROM; Absent tenderness Neurological Exam Neurological exam: Present alert, oriented X3, CN II-XII intact and normal gait; Absent motor sensory deficit Psychiatric Psychiatric exam: Present normal affect and normal mood Skin Skin exam: Present warm and dry Medical Decision Making <Betty Banda DO - Last Filed: 03/11/23 23:57> Medical Records Medical records reviewed: Yes I reviewed the patient's medical records. Vito Inquiry Pt receiving controlled substance: No Vital Signs: 03/11/23 17:43 03/11/23 18:08 03/11/23 19:01 Temperature 97.5 F L Temperature Source Oral Pulse Rate 104 H 108 H Pulse Rate [Radial] 106 H Respiratory Rate 18 Blood Pressure 134/95 H 138/112 H Blood Pressure [Right Arm] 130/93 H Blood Pressure Mean [Right Arm] 105 Blood Pressure Source [Right Arm] Automatic Cuff Blood Pressure Position Blood Pressure Position [Right Arm] Sitting 02 Sat by Pulse Oximetry 97 95 95 Oxygen Delivery Method Room Air 03/11/23 19:30 03/11/23 20:00 03/11/23 20:30 Temperature Temperature Source Pulse Rate 96 H Pulse Rate [Radial] Respiratory Rate 15 34 H Blood Pressure 140/102 H 134/84 133/102 H Blood Pressure [Right Arm] Blood Pressure Mean [Right Arm] Blood Pressure Source [Right Arm] Blood Pressure Position Blood Pressure Position [Right Arm] 02 Sat by Pulse Oximetry 94 L Oxygen Delivery Method 03/11/23 21:00 03/11/23 21:30 03/11/23 23:57 Temperature 98.2 F Temperature Source Oral Pulse Rate 87 Pulse Rate [Radial] Respiratory Rate 17 21 16 Blood Pressure 117/81 117/86 107/67 L Blood Pressure [Right Arm] Blood Pressure Mean [Right Arm] Blood Pressure Source [Right Arm] Blood Pressure Position Supine Blood Pressure Position [Right Arm] 02 Sat by Pulse Oximetry 96 Oxygen Delivery Method Room Air 03/11/23 23:25 03/11/23 23:30 03/11/23 23:38 Temperature Temperature Source Pulse Rate Pulse Rate [Radial] 95 H 101 H 105 H Respiratory Rate 22 17 17 Blood Pressure Blood Pressure [Right Arm] 135/90 139/114 H 128/58 L Blood Pressure Mean [Right Arm] 105 122 81 Blood Pressure Source [Right Arm] Automatic Cuff Automatic Cuff Automatic Cuff Blood Pressure Position Blood Pressure Position [Right Arm] Sitting Sitting Sitting 02 Sat by Pulse Oximetry 97 96 97 Oxygen Delivery Method Room Air Room Air Room Air 03/11/23 23:35 03/11/23 23:38 Temperature Temperature Source Pulse Rate Pulse Rate [Radial] 106 H 105 H Respiratory Rate 18 17 Blood Pressure Blood Pressure [Right Arm] 158/105 H 128/58 L Blood Pressure Mean [Right Arm] 122 81 Blood Pressure Source [Right Arm] Automatic Cuff Automatic Cuff Blood Pressure Position Blood Pressure Position [Right Arm] Sitting Sitting 02 Sat by Pulse Oximetry 97 97 Oxygen Delivery Method Room Air Room Air Lab Data Lab results reviewed: Yes I reviewed the patient's lab results. Orders (Tests/Meds): ED MEDICATIONS Generic Name Dose Route Start Last Admin Trade Name Steve PRN Reason Stop Dose Admin Acetaminophen 650 mg 03/12/23 00:46 Acetaminophen 325mg Tab PO 04/11/23 00:45 Q6HP PRN Fever or Mild Pain (1-3) Acetaminophen 1,000 mg 03/12/23 01:11 Acetaminophen 500mg Tab PO 04/11/23 01:10 Q6HP PRN pain Ibuprofen 600 mg 03/12/23 00:46 Ibuprofen 600 Mg Tablet PO 04/11/23 00:45 Q6HP PRN Fever or Mild Pain (1-3) Ibuprofen 600 mg 03/12/23 01:11 Ibuprofen 600 Mg Tablet PO 04/11/23 01:10 Q6HP PRN Fever or Mild Pain (1-3) Ketamine HCl 25 mg 03/12/23 00:00 03/11/23 23:25 Ketamine 500mg/10ml Vial IV 03/12/23 00:01 25 mg ONCE ONE Administration Methocarbamol 500 mg 03/12/23 01:11 Methocarbamol 500mg Tablet PO 04/11/23 01:10 Q6 PRN pain Morphine Sulfate 4 mg 03/12/23 00:46 Morphine 4mg/Ml Syringe IV 03/12/23 00:47 ONCE ONE Morphine Sulfate 4 mg 03/12/23 01:11 Morphine 10mg/Ml Syringe IV 04/11/23 01:10 Q4HP PRN severe pain Ondansetron HCl 4 mg 03/12/23 00:46 Ondansetron 4mg/2ml Vial IV 03/12/23 00:47 ONCE ONE Discontinued Medications Generic Name Dose Route Start Last Admin Trade Name Steve PRN Reason Stop Dose Admin Lorazepam 1 mg 03/11/23 19:39 03/11/23 19:42 Lorazepam 1mg Tablet PO 03/11/23 19:40 1 mg ONCE ONE Administration Morphine Sulfate 4 mg 03/12/23 00:07 Morphine 4mg/Ml Syringe IV 03/12/23 00:08 ONCE ONE Ondansetron HCl 4 mg 03/12/23 00:07 Ondansetron 4mg/2ml Vial IV 03/12/23 00:08 ONCE ONE ORDERS Category Date Time Status Chest XR -- portable [XR chest portable] Stat Exams 03/11/23 23:30 Completed XR chest 2V Stat Exams 03/11/23 17:57 Completed Medical Decision Narrative: In summary, this patient is a 53-year-old female presenting to the Emergency Department for evaluation of cough and shortness of breath. Differential diagnoses considered include but are not limited to pneumonia, pneumothorax, bronchitis, respiratory failure. Ruling out the most morbid conditions drove assessment. It should be noted patient's history includes hyperlipidemia and diabetes which may or may not be at goal therapy. This complicates all aspects of care by i ncreasing patient's risk for morbidity. I reviewed patient's past medical records and noted her outpatient x-ray showing large right pneumothorax. On exam, the patient is in no acute distress with normal oxygen saturation on room air and no increased work of breathing. She does have diminished breath sounds on the right. Workup included a chest x-ray. I dependently interpreted x-ray prior to radiology read and noted that her pneumothorax is stable and does not change since yesterday. No tension physiology noted on exam or on imaging. At this time, I explained to the patient that I would recommend placement of a chest tube. I explained the physiology behind a collapsed lung, the process of placing a chest tube, and the reason why we would be doing this. I explained the risks of not doing so, including worsening of pneumothorax, development of tension pneumothorax, worsening clinical condition, and other issues. Patient stressed understanding agreement would like to wait and be admitted overnight. She states that she would like to see pulmonology and potentially have it done as an inpatient as opposed to done in the emergency department. I explained to her that if things were to get worse overnight, she could need one emergently. She understands. She would still like to defer chest tube placement at this time. After multiple discussions with the patient as well as with Dr. Zamora, who is admitting for Dr. Trent, the patient is agreeable to do the chest tube. Dr. Jolly graciously did the chest tube after consent was obtained. Patient was then admitted in stable condition for further evaluation and management. <Ashkan Jolly MD - Last Filed: 03/12/23 01:19> Vital Signs: 03/11/23 17:43 03/11/23 18:08 03/11/23 19:01 Temperature 97.5 F L Temperature Source Oral Pulse Rate 104 H 108 H Pulse Rate [Radial] 106 H Respiratory Rate 18 Blood Pressure 134/95 H 138/112 H Blood Pressure [Right Arm] 130/93 H Blood Pressure Mean [Right Arm] 105 Blood Pressure Source [Right Arm] Automatic Cuff Blood Pressure Position Blood Pressure Position [Right Arm] Sitting 02 Sat by Pulse Oximetry 97 95 95 Oxygen Delivery Method Room Air 03/11/23 19:30 03/11/23 20:00 03/11/23 20:30 Temperature Temperature Source Pulse Rate 96 H Pulse Rate [Radial] Respiratory Rate 15 34 H Blood Pressure 140/102 H 134/84 133/102 H Blood Pressure [Right Arm] Blood Pressure Mean [Right Arm] Blood Pressure Source [Right Arm] Blood Pressure Position Blood Pressure Position [Right Arm] 02 Sat by Pulse Oximetry 94 L Oxygen Delivery Method 03/11/23 21:00 03/11/23 21:30 03/11/23 23:57 Temperature 98.2 F Temperature Source Oral Pulse Rate 87 Pulse Rate [Radial] Respiratory Rate 17 21 16 Blood Pressure 117/81 117/86 107/67 L Blood Pressure [Right Arm] Blood Pressure Mean [Right Arm] Blood Pressure Source [Right Arm] Blood Pressure Position Supine Blood Pressure Position [Right Arm] 02 Sat by Pulse Oximetry 96 Oxygen Delivery Method Room Air 03/11/23 23:25 03/11/23 23:30 03/11/23 23:38 Temperature Temperature Source Pulse Rate Pulse Rate [Radial] 95 H 101 H 105 H Respiratory Rate 22 17 17 Blood Pressure Blood Pressure [Right Arm] 135/90 139/114 H 128/58 L Blood Pressure Mean [Right Arm] 105 122 81 Blood Pressure Source [Right Arm] Automatic Cuff Automatic Cuff Automatic Cuff Blood Pressure Position Blood Pressure Position [Right Arm] Sitting Sitting Sitting 02 Sat by Pulse Oximetry 97 96 97 Oxygen Delivery Method Room Air Room Air Room Air 03/11/23 23:35 03/11/23 23:38 Temperature Temperature Source Pulse Rate Pulse Rate [Radial] 106 H 105 H Respiratory Rate 18 17 Blood Pressure Blood Pressure [Right Arm] 158/105 H 128/58 L Blood Pressure Mean [Right Arm] 122 81 Blood Pressure Source [Right Arm] Automatic Cuff Automatic Cuff Blood Pressure Position Blood Pressure Position [Right Arm] Sitting Sitting 02 Sat by Pulse Oximetry 97 97 Oxygen Delivery Method Room Air Room Air Orders (Tests/Meds): ED MEDICATIONS Generic Name Dose Route Start Last Admin Trade Name Steve PRN Reason Stop Dose Admin Acetaminophen 650 mg 03/12/23 00:46 Acetaminophen 325mg Tab PO 04/11/23 00:45 Q6HP PRN Fever or Mild Pain (1-3) Acetaminophen 1,000 mg 03/12/23 01:11 Acetaminophen 500mg Tab PO 04/11/23 01:10 Q6HP PRN pain Ibuprofen 600 mg 03/12/23 00:46 Ibuprofen 600 Mg Tablet PO 04/11/23 00:45 Q6HP PRN Fever or Mild Pain (1-3) Ibuprofen 600 mg 03/12/23 01:11 Ibuprofen 600 Mg Tablet PO 04/11/23 01:10 Q6HP PRN Fever or Mild Pain (1-3) Ketamine HCl 25 mg 03/12/23 00:00 03/11/23 23:25 Ketamine 500mg/10ml Vial IV 03/12/23 00:01 25 mg ONCE ONE Administration Methocarbamol 500 mg 03/12/23 01:11 Methocarbamol 500mg Tablet PO 04/11/23 01:10 Q6 PRN pain Morphine Sulfate 4 mg 03/12/23 00:46 Morphine 4mg/Ml Syringe IV 03/12/23 00:47 ONCE ONE Morphine Sulfate 4 mg 03/12/23 01:11 Morphine 10mg/Ml Syringe IV 04/11/23 01:10 Q4HP PRN severe pain Ondansetron HCl 4 mg 03/12/23 00:46 Ondansetron 4mg/2ml Vial IV 03/12/23 00:47 ONCE ONE Discontinued Medications Generic Name Dose Route Start Last Admin Trade Name Steve PRN Reason Stop Dose Admin Lorazepam 1 mg 03/11/23 19:39 03/11/23 19:42 Lorazepam 1mg Tablet PO 03/11/23 19:40 1 mg ONCE ONE Administration Morphine Sulfate 4 mg 03/12/23 00:07 Morphine 4mg/Ml Syringe IV 03/12/23 00:08 ONCE ONE Ondansetron HCl 4 mg 03/12/23 00:07 Ondansetron 4mg/2ml Vial IV 03/12/23 00:08 ONCE ONE ORDERS Category Date Time Status Chest XR -- portable [XR chest portable] Stat Exams 03/11/23 23:30 Completed XR chest 2V Stat Exams 03/11/23 17:57 Completed <Ashkan Jolly MD - Last Filed: 03/12/23 01:19> Chest Tube Chest Tube 1: Chest Tube Location: right, mid axillary line and fifth interspace Chest Tube Prep: Yes betadine prep and sterile drapes applied Local Anesthetic: lidocaine 1% Amount of anesthesia used (mL): 10 Incision Made With: #11 blade Post Procedure: sutured to skin Tube Drainage: other (air) Post Procedure CXR?: Yes Patient Tolerated Procedure: Yes Progress: A 6 [place] safety centesis catheter was successfully placed at bedside by me. Repeat chest x-ray after procedure shows appropriate reexpansion with possible developing expansion edema. Critical Care <Betty Banda DO - Last Filed: 03/11/23 23:57> Critical Care Time Critical Care Time: No <Ashkan Jolly MD - Last Filed: 03/12/23 01:19> Critical Care Time Critical Care Time: Yes Attestation: On 03/11/23, the high probability of a clinically significant, sudden or life threatening deterioration of the following system(s) respiratory required my full and direct attention, intervention and personal management. The time I documented below is in addition to time spent performing reported procedures but includes the following listed in this critical care notation. Total Time Total Critical Care Time: 35
--- NOTE | 2023-03-11 19:20 | PC.NURSE ---
Per MD Banda, pt refused chest tube.
--- NOTE | 2023-03-11 19:39 | PC.NURSE ---
upon assessment, pt appears anxious. states she feels like she is moy crazy because she is so anxious. aware.
[2023-03-11] MEDS: LORazepam 1MG TABLET 1 MG PO (19:42)
--- NOTE | 2023-03-11 19:47 | PC.NURSE ---
House notified for bed
--- NOTE | 2023-03-11 23:30 | XR_ITS ---
PROCEDURE INFORMATION: Exam: XR Chest Exam date and time: 03/11/2023 11:38 PM Age: 53 years old Clinical indication: Device placement; Chest tube; Additional info: Chest tube placement TECHNIQUE: Imaging protocol: Radiologic exam of the chest. Views: 1 view. COMPARISON: CR XR CHEST 2V 03/11/2023 5:55 PM FINDINGS: Tubes, catheters and devices: Interval placement of a right chest pigtail catheter with re-expansion of the right lung. Lungs: Consolidation of the right lower lobe may reflect re-expansion edema. Pleural spaces: A minimal residual right apical pneumothorax is suspected. Heart/Mediastinum: Stable cardiac and mediastinal contours. Vasculature: There are calcifications of the aortic arch. Bones/joints: No evidence of acute osseous abnormalities within the visualized portions of the thoracic spine and ribs. Osseous structures appear appropriate for patient age. IMPRESSION: Interval re-expansion of the right lung with small right lower lobe consolidation possibly reflecting re-expansion edema.
--- NOTE | 2023-03-11 23:54 | PC.NURSE ---
Chest x ray complete, placement verified by Dr Jolly
[2023-03-12] VITALS (7 sets, daily range): BP systolic 93–128; BP diastolic 60–90; PULSE 64–94; RESP 15–20; TEMP 36.4–36.8; O2SAT 95–100; BMI 25.6; BMI 26.5
[2023-03-12] MEDS: MORPHINE 4MG/ML SYRINGE 4 MG IV ×4 (00:46→21:34)
[2023-03-12] MEDS: ONDANSETRON 4MG/2ML VIAL 4 MG IV (00:46)
--- NOTE | 2023-03-12 00:52 | PC.NURSE ---
Dr. Zamora paged for possible orders for patient increased pain
[2023-03-12] MEDS: ACETAMINOPHEN 500MG TAB 1000 MG PO ×2 (01:29→07:31)
[2023-03-12] MEDS: IBUPROFEN 600 MG TABLET PO ×2 (01:29→07:31)
[2023-03-12] MEDS: METHOCARBAMOL 500MG TABLET 500 MG PO ×2 (02:19→08:09)
[2023-03-12] MEDS: MORPHINE 10 MG/ML 4 MG IV (05:53)
--- NOTE | 2023-03-12 07:33 | PC.NURSE ---
spoke with Frida in pharmacy d/t Methocarbamol 500 mg not stocked in [facility] or pt's med bin.
--- NOTE | 2023-03-12 07:50 | HMH.PHAINT1 ---
Pharmacy Intervention Comments: Home med list verified with patient at bedside and with external pharmacy list
--- NOTE | 2023-03-12 08:46 | P.HP_ITS ---
History of Present Illness *Admission Date: 03/12/23 *Reason for visit:: Shortness of breath *History of present illness: This patient is a 53-year-old female with a history of hyperlipidemia and diabetes presenting to the emergency department for evaluation with concern for shortness of breath. According to the patient, she has had cough for over 1 week. She was seen on 03/03/2023 at [facility] and diagnosed with acute bronchitis, but she was not getting better, so she followed up with her primary care provider yesterday who ordered a chest x-ray. She was called today and told that she had a pneumothorax. On medical record review, she has a large pneumothorax on the right. She was sent here for further evaluation and management. She states that she still had some cough and shortness of breath, no other concerns. She denies any history of cardiopulmonary issues. She is not a smoker. She denies any history of collapsed lung. No trauma recently. (above as per ER physician) The patient states she was so SOA yesterday she thought she was taking her last breath. She was evaluated in the ER and a chest tube was placed. She was admitted. [facility] Disclaimer: The information contained in this section may have been updated after the patient was seen, as this information can be updated by other users. Medical History (Updated 03/12/23 @ 09:05 by ADAMARIS Moss) Cyst Hyperlipemia Impaired fasting glucose Surgical History (Updated 03/12/23 @ 09:05 by ADAMARIS Moss) History of appendectomy History of endometrial ablation History of oophorectomy History of partial hysterectomy History of tubal ligation Family History Mother Family history of myocardial infarction Hyperlipidemia Father Hyperlipidemia Social History (Updated 03/12/23 @ 00:55 by Brittaney Zamora RN) Smoking Status: Former smoker tobacco type: cigarettes packs per day: 1 years smoked: 25 smoking status stop date: 12/29/2019 second hand exposure: Yes alcohol intake: never substance use type: denies use current occupational status: employed and other Travel in the last 8 weeks: None household members: spouse housing: house current occupational exposures/hazards: No caffeine: Yes Review of Systems Constitutional Constitutional: Denies chills, Reports fatigue, Denies fever(s), Denies headache(s) and Reports weakness Eyes Eyes: Denies blurry vision and Denies diplopia ENT Ears, Nose, Mouth, and Throat: Denies headache(s), Reports nasal congestion, Reports sore throat and Denies vertigo *Cardiovascular Cardiovascular: Reports chest pain, Reports dyspnea and Denies leg edema *Respiratory Respiratory: Reports cough and Reports dyspnea *Gastrointestinal Gastrointestinal: Denies abdominal pain, Denies loose stools, Denies nausea and Denies vomiting *Genitourinary Genitourinary: Denies difficulty voiding and Denies dysuria *Musculoskeletal Musculoskeletal: Denies arthralgias and Denies myalgias *Neurologic Neurologic: Denies headache(s), Denies vertigo and Reports weakness Endocrine Endocrine: Reports fatigue Meds Home Medications and Allergies Home Medications Medication Instructions Recorded Confirmed Type metformin 500 mg tablet,extended 1,000 mg PO DAILY pre-diabetic 03/03/23 03/11/23 History release 24 hr atorvastatin 20 mg tablet 20 mg PO HS 03/11/23 03/11/23 History cyclobenzaprine 10 mg tablet 10 mg PO TIDP PRN Muscle Pain 03/12/23 03/12/23 History New Prescriptions to Start Prescriptions: Allergies Allergy/AdvReac Type Severity Reaction Status Date / Time No Known Allergies Allergy Verified 03/03/23 20:18 Exam Data for Last 24 hours Vital signs and Labs for Last 24 Hours: Temp Pulse Resp BP Pulse Ox O2 Del Method O2 Flow Rate 97.8 F 94 H 16 111/65 95 Room Air 2 03/12/23 07:55 03/12/23 07:55 03/12/23 07:55 03/12/23 07:55 03/12/23 07:55 03/12/23 07:55 03/12/23 03:00 I & O for Last 24 hours: Intake & Output 03/09/23 03/10/23 03/11/23 03/12/23 11:59 11:59 11:59 11:59 Intake Total 480 / 480 Output Total 0 / 0 Balance 480 / 480 Weight 185 lb 5 oz Constitutional Constitutional: no acute distress *Routine HEENT Exam Head: Present normocephalic and atraumatic Eye: Present EOMI and PERRL ENT: Present mucous membranes moist *Routine Neck Exam Neck: Present supple and full ROM *Routine Respiratory Exam Respiratory: Present CTA bilaterally Comments: chest tube in place on the right *Routine Cardiovascular Exam Cardiovascular: Present RRR *Routine Abdominal Exam Abdominal: Present soft and normoactive bowel sounds; Absent tenderness *Routine Rectal Exam Rectal:: deferred *Routine Genitalia Exam Genitalia:: deferred *Routine Extremities Exam Extremities: Absent cyanosis, clubbing or edema *Routine Skin Exam Skin: Present intact; Absent erythema *Routine Neurological Exam Neurological: Present alert and oriented X3 H&P: Result Impressions CXR 1 - Large right pneumothorax with mild shift of the mediastinal structures to the left. CXR 2 - No significant interval change in the large right pneumothorax. CXR 3 - Interval re-expansion of the right lung with small right lower lobe consolidation possibly reflecting re-expansion edema. Assessment and Plan *Assessment and plan (1) Pneumothorax on right: Status: Acute Category: Medical Code(s): J93.9 - Pneumothorax, unspecified (2) Acute bronchitis: Status: Acute Category: Medical Code(s): J20.9 - Acute bronchitis, unspecified (3) Impaired fasting glucose: Status: Acute Category: Medical Code(s): R73.01 - Impaired fasting glucose (4) Hyperlipemia: Status: Acute Category: Medical Code(s): E78.5 - Hyperlipidemia, unspecified Plan A chest tube has been placed and patient is breathing much better today. Pulmonology has been consulted. Will discuss further care with Dr. Trent. Dr. Trent entry - Saw patient, agree with above note. She clearly needs in patient treatment. Continue pain management
--- NOTE | 2023-03-12 09:38 | P.CONS_ITS ---
History of Present Illness History of present illness: Ms. Rutledge is a 53-year-old female no significant smoking history experiencing symptoms of bronchitis with worsening cough for the last week with progressively worsening shortness of breath presented to the ER and found to have large right- sided pneumothorax status post pigtail catheter placement pulmonary was called for further evaluation and management [facility] Disclaimer: The information contained in this section may have been updated after the patient was seen, as this information can be updated by other users. Medical History (Updated 03/12/23 @ 09:05 by ADAMARIS Moss) Cyst Hyperlipemia Impaired fasting glucose Surgical History (Updated 03/12/23 @ 09:05 by ADAMARIS Moss) History of appendectomy History of endometrial ablation History of oophorectomy History of partial hysterectomy History of tubal ligation Family History Mother Family history of myocardial infarction Hyperlipidemia Father Hyperlipidemia Social History (Updated 03/12/23 @ 00:55 by Brittaney Zamora RN) Smoking Status: Former smoker tobacco type: cigarettes packs per day: 1 years smoked: 25 smoking status stop date: 12/29/2019 second hand exposure: Yes alcohol intake: never substance use type: denies use current occupational status: employed and other Travel in the last 8 weeks: None household members: spouse housing: house current occupational exposures/hazards: No caffeine: Yes Review of Systems Constitutional Constitutional: Denies headache(s) Eyes Eyes: Denies eye discharge, Denies dry eyes, Denies irritation and Denies itchy eyes ENT Ears, Nose, Mouth, and Throat: Denies headache(s), Denies lip swelling, Denies throat swelling and Denies vertigo *Cardiovascular Cardiovascular: Reports dyspnea and Reports dyspnea on exertion *Respiratory Respiratory: Denies chest congestion, Denies cough, Reports dyspnea, Reports dyspnea on exertion, Denies excessive phlegm production and Denies wheezing *Gastrointestinal Gastrointestinal: Denies abdominal pain, Denies belching and Denies cramping *Musculoskeletal Musculoskeletal: Reports back pain, Reports myalgias and Reports other (No small joint swelling or Pain) *Neurologic Neurologic: Denies headache(s) and Denies vertigo Psychiatric Psychiatric: Denies homicidal ideation and Denies suicidal ideation Endocrine Endocrine: Denies heat intolerance Hematologic/Lymphatic Hematologic/Lymphatic: Denies easy bleeding and Denies lymphadenopathy Allergic/Immunologic Allergic/Immunologic: Denies itchy eyes, Denies lip swelling, Denies throat swelling and Denies wheezing Pulmonology Exam Inpatient Vital signs and Labs for Last 24 Hours: Temp Pulse Resp BP Pulse Ox O2 Del Method O2 Flow Rate 97.8 F 94 H 16 111/65 95 Room Air 2 03/12/23 07:55 03/12/23 07:55 03/12/23 07:55 03/12/23 07:55 03/12/23 07:55 03/12/23 09:00 03/12/23 03:00 I & O for Labs for Last 24 Hours: Intake & Output 03/09/23 03/10/23 03/11/23 03/12/23 23:59 23:59 23:59 23:59 Intake Total 480 / 480 Output Total 0 / 0 Balance 480 / 480 Weight 183 lb 185 lb 5 oz Constitutional: Present moderate distress Head: Present normocephalic and atraumatic ENT: Present normal exam, normal oropharynx and mucous membranes moist Neck: Present normal inspection and full ROM Respiratory: Present diminished air movement, normal respiratory effort and able to speak in complete sentences; Absent wheezes or crackles Comment:: Decreased breath sounds right lower lung nix Cardiac: Present S1/S2, Tachycardia and radial pulses present GI: Present soft and distention; Absent tenderness or guarding Rectal (female): Present deferred (female): Present deferred Skin: Present intact; Absent cyanosis or jaundice Neuro: Present alert, awake and oriented x 3 Extremities: Present normal inspection; Absent clubbing or cyanosis Psychiatric: Present normal affect and cooperative Meds Home Medications and Allergies Home Medications Medication Instructions Recorded Confirmed Type metformin 500 mg tablet,extended 1,000 mg PO DAILY pre-diabetic 03/03/23 03/11/23 History release 24 hr atorvastatin 20 mg tablet 20 mg PO HS 03/11/23 03/11/23 History cyclobenzaprine 10 mg tablet 10 mg PO TIDP PRN Muscle Pain 03/12/23 03/12/23 History New Prescriptions to Start Prescriptions: Allergies Allergy/AdvReac Type Severity Reaction Status Date / Time No Known Allergies Allergy Verified 03/03/23 20:18 Assessment and Plan *Assessment and plan (1) Pneumothorax on right: Status: Acute Category: Medical Code(s): J93.9 - Pneumothorax, unspecified Plan # Spontaneous right pneumothorax: No significant smoking history. No prior respiratory complaints. Denies any family history of frequent pneumothorax. Chest x-ray upon admission 03/10/23, large right pneumothorax noted. Hyperinflated lungs. No dense consolidation/airspace disease noted. Chest x-ray from 03/11/2023 pigtail catheter placed with significant improvement in the noted pneumothorax. 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 Status post pigtail catheter placement in the ER with improvement in pneumothorax. However chest x-ray from today continue to show worsening pneumothorax from yesterday. Plan: Oxygen supplementation via NRM to maintain O2 saturation goal of 100% DuoNebs every 8 hours scheduled Continue pigtail catheter to suction, increased to -40 Will follow with a chest x-ray in 3 hrs and the need for changing the pigtail to large-bore chest tube. # Thank you for involving pulmonary in this patient care. Will continue to follow.
--- NOTE | 2023-03-12 09:56 | XR_ITS ---
FINAL REPORT CLINICAL HISTORY: Pneumothorax COMPARISON: 1 day prior FINDINGS: The heart size is normal. The mediastinum is normal. There is dense airspace opacity in the periphery of the right midlung and at the right base, increased from prior. There is now a moderate right pneumothorax measuring 4.0 cm of pleural separation at the right apex. Right pigtail chest tube is present. The left lung is clear. There are no pleural effusions. There is no osseous abnormality. IMPRESSION: Recurrent significant pneumothorax. Reviewed, Interpreted and Dictated by Garo Douglas MD Transcribed by Cony Sampson Authenticated and . [facility]
--- NOTE | 2023-03-12 10:13 | PC.NURSE ---
radiology at bedside.
--- NOTE | 2023-03-12 10:30 | PC.NURSE ---
Dr. Fierro at bedside, verbal order to increase suction to 40 on chest tube. pt and family updated on poc
--- NOTE | 2023-03-12 10:44 | PC.NURSE ---
report given to PARIS El
--- NOTE | 2023-03-12 12:55 | XR_ITS ---
FINAL REPORT CLINICAL HISTORY: Pneumothorax COMPARISON: 03/12/2023 FINDINGS: SINGLE-VIEW CHEST The heart size is normal. The mediastinum is normal. Right pigtail chest tube is again identified. The pneumothorax is significantly decreased in size as compared to previous. There is scar or atelectasis at the right base. The airspace infiltrates noted previously have significantly improved. IMPRESSION: Reduced size of right pneumothorax. There may be minimal residual pneumothorax at the apex. Reviewed, Interpreted and Dictated by Garo Douglas MD Transcribed by Estela Laird Authenticated and [facility]
--- NOTE | 2023-03-12 18:45 | PC.NURSE ---
PT HAS DONE WELL SINCE THIS NURSE TOOK OVER CARE. HAS BEEN UP TO BEDSIDE COMMODE, TOLERATING WELL. PT PLACED ON NRM FOR O2 SAT GOAL OF 100% PER MD. TOLERATING WELL. PT HAS HAD A COUPLE EPISODES OF NA/VO THIS SHIFT. PT STATES SHE THINKS HER SANDWICH WAS BAD AND DOES NOT WISH FOR NAUSEA MEDS. CHEST TUBE IN PLACE, CDI. TX FOR PAIN PER MAY, EFFECTIVENESS NOTED. NO OTHER NEEDS OR C/O THUS FAR THIS SHIFT, VSS.
[2023-03-12] MEDS: IPRATROPIUM/ALBUTEROL 3 ML NEB IH (19:22)
[2023-03-13] VITALS (9 sets, daily range): BP systolic 108–121; BP diastolic 51–94; PULSE 68–86; RESP 16–18; TEMP 36.6–36.8; O2SAT 93–100; BMI 26.6
[2023-03-13] MEDS: ACETAMINOPHEN 500MG TAB 1000 MG PO (02:52)
[2023-03-13] MEDS: MORPHINE 4MG/ML SYRINGE 4 MG IV ×3 (04:21→20:07)
--- NOTE | 2023-03-13 04:58 | PC.NURSE ---
Pt is alert and oriented x4, and currently on 15L O2 via venturi mask. Pt is tolerating mask well and remains at goal of 100%. Pt has complained of pain this shift and has recieved pain meds per MAR. Chest tube remains intact and dressed at this time with no drainage noted. Pt seems very pleasant and denies most needs.
[2023-03-13] MEDS: IPRATROPIUM/ALBUTEROL 3 ML NEB IH ×3 (05:18→19:46)
--- NOTE | 2023-03-13 08:09 | EXP.ACUTE.PN ---
Subjective *Date: 03/13/23 *Time: 08:35 Interval history: Patient is feeling about the same today. She was able to get up and take a bed bath yesteday and said she did not get short of air. She only has pain in the chest tube site. Medical Exam Vital signs and Labs for Last 24 Hours: Vital Signs Temp Pulse Pulse Resp BP Pulse Ox O2 Del Method 03/13/23 05:19 75 03/13/23 05:19 77 03/13/23 05:19 98 Non-Rebreather 03/13/23 04:00 97.9 F 78 18 108/51 L 100 Venturi Mask 03/13/23 06:37 Venturi Mask 03/13/23 04:38 Venturi Mask 03/13/23 03:00 Venturi Mask 03/13/23 00:42 Venturi Mask 03/13/23 00:00 100 Venturi Mask 03/12/23 23:00 Venturi Mask 03/12/23 21:00 Venturi Mask 03/12/23 20:00 100 Venturi Mask 03/12/23 20:00 98.0 F 66 17 103/60 L 100 Venturi Mask 03/12/23 19:23 64 03/12/23 19:23 75 03/12/23 19:23 99 Non-Rebreather 03/12/23 18:41 Room Air 03/12/23 16:57 Non-Rebreather 03/12/23 15:22 98.2 F 65 16 106/65 L 100 Room Air 03/12/23 14:54 Non-Rebreather 03/12/23 12:47 Non-Rebreather 03/12/23 10:38 Room Air 03/12/23 09:00 Room Air O2 Flow Rate FiO2 03/13/23 05:19 03/13/23 05:19 03/13/23 05:19 15 100 03/13/23 04:00 15 03/13/23 06:37 15 03/13/23 04:38 15 03/13/23 03:00 15 03/13/23 00:42 15 03/13/23 00:00 15 03/12/23 23:00 15 03/12/23 21:00 15 03/12/23 20:00 15 03/12/23 20:00 03/12/23 19:23 03/12/23 19:23 03/12/23 19:23 100 03/12/23 18:41 03/12/23 16:57 15 03/12/23 15:22 03/12/23 14:54 15 03/12/23 12:47 15 03/12/23 10:38 03/12/23 09:00 Intake and Output 03/12/23 03/13/23 03/13/23 19:59 03:59 11:59 Intake Total 710 / 1190 480 / 1190 Output Total 0 / 200 200 / 200 Balance 710 / 990 480 / 990 -200 / 990 Intake: Intake, Oral Amount 710 / 1190 480 / 1190 Output: Output, Urine Amount 0 / 200 200 / 200 Other: Number of Unmeasured Voids 1 0 Weight 185 lb 3.013 oz 186 lb 9.6 oz Patient Weight 03/13/23 11:59 Weight 186 lb 9.6 oz I & O for Labs for Last 24 Hours: Intake & Output 03/10/23 03/11/23 03/12/23 03/13/23 11:59 11:59 11:59 11:59 Intake Total 480 / 480 1190 / 1190 Output Total 0 / 0 200 / 200 Balance 480 / 480 990 / 990 Weight 185 lb 5 oz 186 lb 9.6 oz Constitutional: Present no acute distress Respiratory: Present CTA bilaterally Cardiac: Present Reg Rate and Rhythm GI: Present soft and normal bowel sounds; Absent distention or tenderness Extremities: Absent edema, clubbing or cyanosis Skin: Present intact Neuro: Present alert and awake Assessment and Plan *Assessment and plan (1) Pneumothorax on right: Status: Acute Category: Medical Code(s): J93.9 - Pneumothorax, unspecified (2) Acute bronchitis: Status: Acute Category: Medical Code(s): J20.9 - Acute bronchitis, unspecified (3) Impaired fasting glucose: Status: Acute Category: Medical Code(s): R73.01 - Impaired fasting glucose (4) Hyperlipemia: Status: Acute Category: Medical Code(s): E78.5 - Hyperlipidemia, unspecified Plan Patient was seen by pulmonology yesterday. CXR from yesterday showed a worsening pneumothorax from the one that was done in the ER after chest tube placement. His plan was as follows: 1. Oxygen supplementation via NRM to maintain O2 saturation goal of 100% 2. DuoNebs every 8 hours scheduled 3. Continue pigtail catheter to suction, increased to -40 He did a repeat CXR and it showed improvement so he wanted to continue suction at -40 cm water. Pulmonology to follow. Will discuss restarting home meds with Dr. Trent. Dr. Trent entry - Saw patient, agree with above note. OK to resume home meds, will repeat CXR now.
--- NOTE | 2023-03-13 09:00 | XR_ITS ---
FINAL REPORT CLINICAL HISTORY: pneumo follow up COMPARISON: 03/12/2023 FINDINGS: Pigtail chest tube is present. The heart size is normal. The mediastinum is normal. Bibasilar atelectasis is noted. There are no pleural effusions. There is recurrent pneumothorax with 3.5 cm of pleural separation at the right apex. There is no osseous abnormality. IMPRESSION: Recurrent pneumothorax with 3.5 cm of pleural separation. Reviewed, Interpreted and Dictated by Garo Douglas MD Transcribed by Cony Sampson Authenticated and [facility]
[2023-03-13] MEDS: OXYCODONE 5MG IMMEDIATE RELEASE TABLET 5 MG PO (09:24)
[2023-03-13] MEDS: METFORMIN 500MG TABLET 1000 MG PO (09:24)
[2023-03-13] MEDS: ATORVASTATIN 20MG TABLET 20 MG PO (11:31)
--- NOTE | 2023-03-13 11:37 | P.PN_ITS ---
Subjective *Date: 03/13/23 *Time: 11:37 Interval history: No acute respiratory events overnight. Patient denies any new respiratory complaints. Pulmonology Exam Inpatient Vital signs and Labs for Last 24 Hours: Temp Pulse Resp BP Pulse Ox O2 Del Method O2 Flow Rate 98.2 F 68 18 121/94 H 100 Non-Rebreather 15 03/13/23 08:00 03/13/23 08:00 03/13/23 08:00 03/13/23 08:00 03/13/23 08:00 03/13/23 11:00 03/13/23 08:00 FiO2 100 03/13/23 08:00 I & O for Labs for Last 24 Hours: Intake & Output 03/10/23 03/11/23 03/12/23 03/13/23 23:59 23:59 23:59 23:59 Intake Total 1190 / 1670 840 / 840 Output Total 0 / 0 200 / 200 Balance 1190 / 1670 640 / 640 Weight 183 lb 185 lb 3.013 oz 186 lb 9.6 oz Constitutional: Present moderate distress Head: Present normocephalic and atraumatic ENT: Present normal exam, normal oropharynx and mucous membranes moist Neck: Present normal inspection and full ROM Respiratory: Present diminished air movement, normal respiratory effort and able to speak in complete sentences; Absent wheezes or crackles Comment:: Decreased breath sounds right lower lung nix Cardiac: Present S1/S2, Tachycardia and radial pulses present GI: Present soft and distention; Absent tenderness or guarding Rectal (female): Present deferred (female): Present deferred Skin: Present intact; Absent cyanosis or jaundice Neuro: Present alert, awake and oriented x 3 Extremities: Present normal inspection; Absent clubbing or cyanosis Psychiatric: Present normal affect and cooperative Assessment and Plan *Assessment and plan (1) Pneumothorax on right: Status: Acute Category: Medical Code(s): J93.9 - Pneumothorax, unspecified Plan # Secondary Spontaneous right pneumothorax: Denies any family history of frequent pneumothorax. Chest x-ray upon admission 03/10/23, large right pneumothorax noted. Hyperinflated lungs. No dense consolidation/airspace disease noted. Chest x-ray from 03/11/2023 pigtail catheter placed with significant improvement in the noted pneumothorax. 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 Status post pigtail catheter placement in the ER with improvement in pneumoth orax, however patient continued to have waxing and waning of pneumothorax on most recent chest x-ray from this morning showed worsening pneumothorax compared to her chest x-ray from yesterday afternoon. Given her recurrence of pneumothorax despite having a pigtail catheter to suction the plan was made to proceed with surgical chest tube placement. Dr. Swift from surgical team consulted. Plan: Oxygen supplementation via NRM to maintain O2 saturation goal of 100% DuoNebs every 8 hours scheduled Continue pigtail catheter to suction, increased to -40 Surgical chest tube placement by Surgery # Thank you for involving pulmonary in this patient care. Will continue to follow.
[2023-03-13] MEDS: LIDOCAINE 1% 10ML MDV 10 ML IJ (14:30)
--- NOTE | 2023-03-13 14:54 | XR_ITS ---
PROCEDURE INFORMATION: Exam: XR Chest Exam date and time: 03/13/2023 3:14 PM Age: 53 years old Clinical indication: Device placement; Chest tube; Additional info: Chest tube insertion TECHNIQUE: Imaging protocol: Radiologic exam of the chest. Views: 1 view. COMPARISON: CR XR CHEST PORTABLE 03/13/2023 9:18 AM FINDINGS: Tubes, catheters and devices: Interval placement of right thoracostomy tube. Lungs: Unremarkable. No consolidation. Pleural spaces: Right pneumothorax has decreased in size. The pleural separation measures 2.4 cm, previously 3.7 cm. Heart/Mediastinum: Unremarkable. No cardiomegaly. Bones/joints: Expected subcutaneous air in the right chest wall. IMPRESSION: 1. Interval placement of right thoracostomy tube. 2. Right pneumothorax has decreased in size. The pleural separation measures 2.4 cm, previously 3.7 cm.
--- NOTE | 2023-03-13 14:56 | EXP.SURG.CON ---
History of Present Illness *Admission Date: 03/12/23 *Reason for visit:: Request for thoracostomy tube *History of present illness: This is a 53-year-old female seen in consultation from the Pulmonology Service for right thoracostomy tube placement. Forwarded from admission H&P: This patient is a 53-year-old female with a history of hyperlipidemia and diabetes presenting to the emergency department for evaluation with concern for shortness of breath. According to the patient, she has had cough for over 1 week. She was seen on 03/03/2023 at [facility] and diagnosed with acute bronchitis, but she was not getting better, so she followed up with her primary care provider yesterday who ordered a chest x-ray. She was called today and told that she had a pneumothorax. On medical record review, she has a large pneumothorax on the right. She was sent here for further evaluation and management. She states that she still had some cough and shortness of breath, no other concerns. She denies any history of cardiopulmonary issues. She is not a smoker. She denies any history of collapsed lung. No trauma recently. (above as per ER physician) The patient states she was so SOA yesterday she thought she was taking her last breath. She was evaluated in the ER and a chest tube was placed. She was admitted. [facility] Disclaimer: The information contained in this section may have been updated after the patient was seen, as this information can be updated by other users. Medical History (Updated 03/12/23 @ 09:05 by ADAMARIS Moss) Cyst Hyperlipemia Impaired fasting glucose Surgical History (Updated 03/12/23 @ 09:05 by ADAMARIS Moss) History of appendectomy History of endometrial ablation History of oophorectomy History of partial hysterectomy History of tubal ligation Family History Mother Family history of myocardial infarction Hyperlipidemia Father Hyperlipidemia Social History (Updated 03/12/23 @ 00:55 by Brittaney Zamora RN) Smoking Status: Former smoker tobacco type: cigarettes packs per day: 1 years smoked: 25 smoking status stop date: 12/29/2019 second hand exposure: Yes alcohol intake: never substance use type: denies use current occupational status: employed and other Travel in the last 8 weeks: None household members: spouse housing: house current occupational exposures/hazards: No caffeine: Yes Review of Systems Constitutional Constitutional: Denies headache(s) and Reports weakness ENT Ears, Nose, Mouth, and Throat: Denies headache(s) and Denies vertigo *Neurologic Neurologic: Denies headache(s), Denies vertigo and Reports weakness Meds Home Medications and Allergies Home Medications Medication Instructions Recorded Confirmed Type metformin 500 mg tablet,extended 1,000 mg PO DAILY pre-diabetic 03/03/23 03/11/23 History release 24 hr atorvastatin 20 mg tablet 20 mg PO HS 03/11/23 03/11/23 History cyclobenzaprine 10 mg tablet 10 mg PO TIDP PRN Muscle Pain 03/12/23 03/12/23 History New Prescriptions to Start Prescriptions: Allergies Allergy/AdvReac Type Severity Reaction Status Date / Time No Known Allergies Allergy Verified 03/03/23 20:18 Exam (Inpt) Vital signs and Labs for Last 24 Hours: Temp Pulse Resp BP Pulse Ox O2 Del Method O2 Flow Rate 98.2 F 70 18 121/94 H 93 L Non-Rebreather 15 03/13/23 08:00 03/13/23 12:56 03/13/23 08:00 03/13/23 08:00 03/13/23 12:56 03/13/23 13:00 03/13/23 12:56 FiO2 100 03/13/23 12:56 I & O for Labs for Last 24 Hours: Intake & Output 03/11/23 03/12/23 03/13/23 03/14/23 11:59 11:59 11:59 11:59 Intake Total 480 / 480 1550 / 1550 270 / 270 Output Total 0 / 0 200 / 200 Balance 480 / 480 1350 / 1350 270 / 270 Weight 185 lb 5 oz 186 lb 9.6 oz Constitutional: no acute distress Respiratory: Absent respiratory distress Cardiac: Absent Tachycardia Results Imaging Chest x-ray: report reviewed and image reviewed Assessment and Plan *Assessment and plan (1) Pneumothorax on right: Status: Acute Category: Medical Code(s): J93.9 - Pneumothorax, unspecified Plan: Right thoracostomy tube I have discussed the risks and benefits including, but not limited to: Bleeding Infection Damage to surrounding tissue Inherent risks of sedation The patient agrees to proceed.
--- NOTE | 2023-03-13 14:59 | EXP.OP.NOTE ---
Date of procedure: 03/13/23 Pre-op Diagnosis:: Right pneumothorax Post-op Diagnosis:: Same Procedure performed:: Right thoracostomy tube placement (24 Citizen Of [place]) Surgeon:: Melchor Brown MD Anesthesia: local Estimated blood loss (mL): 5 Operative findings:: Tube anchored at 16 cm Operative note:: After informed consent was obtained the patient was maintained in the supine position. Her right lateral chest was prepped and draped in a sterile fashion. After infiltration local anesthetic an incision was made below the sixth interspace. The subcutaneous tissue was bluntly dissected up and over the rib margin. A 24 Citizen [place] thoracostomy tube was then placed in position and secured at 16 cm with a 0 silk suture. Dressings were applied as she was connected to the Pleur-evac device. Chest x-ray pending. Condition: stable Disposition: no change Specimens:: none Complications:: No immediate. Chest x-ray pending.
[2023-03-13] MEDS: HYDROMORPHONE 2MG/ML SYRINGE 1 MG IV (15:47)
--- NOTE | 2023-03-13 18:28 | PC.NURSE ---
A&OX4. NRM CONTINUES AT 15L FOR OXYGENATION OF 100%. PT UNDERWENT NEW CHEST TUBE PLACEMENT TODAY PER MD LEON. PT TOLERATED PROCEDURE VERY WELL. 24 BENGALI TUBE AT 16CM TO R SIDE. CDI. SLIGHT AMOUNT OF SEROSANG DRAINAGE NOTED TO PLEUR-EVAC. PT HAS BEEN TX FOR R SIDED PAIN PER MAY, EFFECTIVENESS NOTED. PT IS RESTING IN BED AT THIS TIME, NO NEEDS OR C/O NOTED, SEEMS VERY COMFORTABLE. FAMILY HAS BEEN IN AND OUT T/O DAY. VSS.
[2023-03-14] VITALS (8 sets, daily range): BP systolic 98–117; BP diastolic 60–74; PULSE 56–94; RESP 16–20; TEMP 36.7–37.1; O2SAT 94–100; BMI 27.1
[2023-03-14] MEDS: MORPHINE 4MG/ML SYRINGE 4 MG IV ×5 (00:48→19:29)
[2023-03-14] MEDS: METHOCARBAMOL 500MG TABLET 500 MG PO ×3 (02:34→20:58)
--- NOTE | 2023-03-14 04:04 | PC.NURSE ---
Pt is A/O x4 and remains on 15L venturi mask. Pt is sating at 100%. Pt has C/O severe pain multiple times this shift and continues to use the bedside commode with assist x1, little to no drainage noted in chest tube. Tube still in place dressed. Pt denies needs at this time.
[2023-03-14] MEDS: ACETAMINOPHEN 500MG TAB 1000 MG PO (05:43)
[2023-03-14] MEDS: IBUPROFEN 600 MG TABLET PO (05:43)
--- NOTE | 2023-03-14 06:00 | XR_ITS ---
PROCEDURE INFORMATION: Exam: XR Chest Exam date and time: 03/14/2023 5:31 AM Age: 53 years old Clinical indication: Condition or disease and device placement; Chest tube; Lung condition and disease; Pneumothorax; Additional info: Right ptx TECHNIQUE: Imaging protocol: Radiologic exam of the chest. Views: 1 view. COMPARISON: CR XR CHEST PORTABLE 03/13/2023 3:14 PM FINDINGS: Tubes, catheters and devices: Right-sided pleural tube. Lungs: Basilar atelectasis. Pleural spaces: Trace residual right pneumothorax. Heart/Mediastinum: Unremarkable. No cardiomegaly. Bones/joints: Unremarkable. Soft tissues: Subcutaneous emphysema in the right chest. IMPRESSION: Right-sided pleural tube. Subcutaneous emphysema in the right chest. Basilar atelectasis. Trace residual right pneumothorax.
[2023-03-14] MEDS: IPRATROPIUM/ALBUTEROL 3 ML NEB IH ×3 (06:05→19:02)
--- NOTE | 2023-03-14 07:05 | EXP.SURG.PN ---
Subjective Narrative: She states that she feels less short of breath today versus yesterday. Exam Data for Last 24 hours Vital signs and Labs for Last 24 Hours: Temp Pulse Resp BP Pulse Ox O2 Del Method O2 Flow Rate 98.7 F 82 17 117/72 98 Venturi Mask 15 03/14/23 04:00 03/14/23 06:05 03/14/23 04:00 03/14/23 04:00 03/14/23 06:05 03/14/23 06:37 03/14/23 06:37 FiO2 100 03/14/23 06:05 I & O for Last 24 hours: Intake & Output 03/11/23 03/12/23 03/13/23 03/14/23 11:59 11:59 11:59 11:59 Intake Total 480 / 480 1550 / 1550 980 / 980 Output Total 0 / 0 200 / 200 38 / 38 Balance 480 / 480 1350 / 1350 942 / 942 Weight 185 lb 5 oz 186 lb 9.6 oz 189 lb 8.009 oz Radiology Reports for the Last 24 Hours: A.m. chest x-ray reveals that trace pneumothorax remains. Constitutional Constitutional: no acute distress *Routine Respiratory Exam Comments: Moderate airleak appreciable Progress Note: A&P Assessment and plan (1) Pneumothorax on right: Status: Acute Assessment and plan: Improved with 24 [place] chest tube (note chest tube placement somewhat medial as opposed to within apex). Continue chest tube to suction for now
[2023-03-14] MEDS: ATORVASTATIN 20MG TABLET 20 MG PO (08:15)
[2023-03-14] MEDS: METFORMIN 500MG TABLET 1000 MG PO (08:15)
--- NOTE | 2023-03-14 08:53 | EXP.ACUTE.PN ---
Subjective *Date: 03/14/23 *Time: 08:53 Interval history: Larger chest tube had to be placed yesterday. Patient states breathing has improved, still having pain. Medical Exam Vital signs and Labs for Last 24 Hours: Vital Signs Temp Pulse Pulse Resp BP Pulse Ox O2 Del Method 03/14/23 08:00 Non-Rebreather 03/14/23 07:53 Room Air 03/14/23 07:51 Non-Rebreather 03/14/23 06:37 Venturi Mask 03/14/23 06:05 82 03/14/23 06:05 82 03/14/23 06:05 98 Non-Rebreather 03/14/23 04:00 98.7 F 85 17 117/72 95 Room Air 03/14/23 04:46 Venturi Mask 03/14/23 03:00 Venturi Mask 03/14/23 01:00 Venturi Mask 03/14/23 00:00 100 Venturi Mask 03/13/23 23:00 Venturi Mask 03/13/23 21:00 Venturi Mask 03/13/23 20:00 100 Venturi Mask 03/13/23 20:00 98.2 F 70 16 113/65 100 Venturi Mask 03/13/23 19:46 86 03/13/23 19:46 86 03/13/23 19:46 99 Non-Rebreather 03/13/23 18:31 Non-Rebreather 03/13/23 17:00 Room Air 03/13/23 16:00 98 Room Air 03/13/23 15:42 97.8 F 77 16 108/73 L 98 Room Air 03/13/23 15:00 Non-Rebreather 03/13/23 13:00 Non-Rebreather 03/13/23 12:56 70 03/13/23 12:56 74 03/13/23 12:56 93 L Non-Rebreather 03/13/23 11:00 Non-Rebreather 03/13/23 09:00 Non-Rebreather O2 Flow Rate FiO2 03/14/23 08:00 03/14/23 07:53 03/14/23 07:51 100 03/14/23 06:37 15 03/14/23 06:05 03/14/23 06:05 03/14/23 06:05 15 100 03/14/23 04:00 03/14/23 04:46 15 03/14/23 03:00 15 03/14/23 01:00 15 03/14/23 00:00 15 03/13/23 23:00 15 03/13/23 21:00 15 03/13/23 20:00 15 03/13/23 20:00 15 03/13/23 19:46 03/13/23 19:46 03/13/23 19:46 100 03/13/23 18:31 15 03/13/23 17:00 03/13/23 16:00 03/13/23 15:42 03/13/23 15:00 15 03/13/23 13:00 03/13/23 12:56 03/13/23 12:56 03/13/23 12:56 15 100 03/13/23 11:00 03/13/23 09:00 Intake and Output 03/13/23 03/14/23 03/14/23 23:59 07:59 15:59 Intake Total 470 / 1820 240 / 240 Output Total Balance 446 / 1596 226 / 226 Intake: Intake, Oral Amount 470 / 1820 240 / 240 Output: Output, Urine Amount 0 / 0 Output, Chest Tube Drainage Amount Right Mid-Axillary Chest Other: Number of Unmeasured Voids 1 Weight 189 lb 8.009 oz Patient Weight 03/14/23 23:59 Weight 189 lb 8.009 oz I & O for Labs for Last 24 Hours: Intake & Output 03/11/23 03/12/23 03/13/23 03/14/23 23:59 23:59 23:59 23:59 Intake Total 1190 / 1670 1580 / 1820 240 / 240 Output Total 0 / 0 224 / 224 Balance 1190 / 1670 1356 / 1596 226 / 226 Weight 183 lb 185 lb 3.013 oz 186 lb 9.6 oz 189 lb 8.009 oz Constitutional: Present no acute distress Respiratory: Present CTA bilaterally Cardiac: Present Reg Rate and Rhythm GI: Present soft and normal bowel sounds; Absent distention or tenderness Extremities: Absent edema, clubbing or cyanosis Skin: Present intact Neuro: Present alert and awake Assessment and Plan *Assessment and plan (1) Pneumothorax on right: Status: Acute Category: Medical Code(s): J93.9 - Pneumothorax, unspecified (2) Acute bronchitis: Status: Acute Category: Medical Code(s): J20.9 - Acute bronchitis, unspecified (3) Impaired fasting glucose: Status: Acute Category: Medical Code(s): R73.01 - Impaired fasting glucose (4) Hyperlipemia: Status: Acute Category: Medical Code(s): E78.5 - Hyperlipidemia, unspecified Plan Improved pneumothorax, will add Toradol today
[2023-03-14] MEDS: KETOROLAC 30MG/ML VIAL 30 MG IV ×3 (09:07→20:57)
--- NOTE | 2023-03-14 10:02 | EXP.PULM.PN ---
Subjective *Date: 03/14/23 *Time: 13:29 Interval history: No acute respiratory vents overnight. Patient denies any new respiratory complaints. Pulmonology Exam Inpatient Vital signs and Labs for Last 24 Hours: Temp Pulse Resp BP Pulse Ox O2 Del Method O2 Flow Rate 98.1 F 86 20 98/60 L 97 Room Air 15 03/14/23 08:00 03/14/23 08:00 03/14/23 08:00 03/14/23 08:00 03/14/23 08:00 03/14/23 08:00 03/14/23 06:37 FiO2 100 03/14/23 07:51 I & O for Labs for Last 24 Hours: Intake & Output 03/11/23 03/12/23 03/13/23 03/14/23 23:59 23:59 23:59 23:59 Intake Total 1190 / 1670 1580 / 1820 480 / 480 Output Total 0 / 0 224 / 224 14 / 14 Balance 1190 / 1670 1356 / 1596 466 / 466 Weight 183 lb 185 lb 3.013 oz 186 lb 9.6 oz 189 lb 8.009 oz Constitutional: Present moderate distress Head: Present normocephalic and atraumatic ENT: Present normal exam, normal oropharynx and mucous membranes moist Neck: Present normal inspection and full ROM Respiratory: Present normal respiratory effort and able to speak in complete sentences; Absent respiratory distress, wheezes, crackles or diminished air movement Cardiac: Present S1/S2, Tachycardia and radial pulses present GI: Present soft and distention; Absent tenderness or guarding Rectal (female): Present deferred (female): Present deferred Skin: Present intact; Absent cyanosis or jaundice Neuro: Present alert, awake and oriented x 3 Extremities: Present normal inspection; Absent clubbing or cyanosis Psychiatric: Present normal affect and cooperative Assessment and Plan *Assessment and plan (1) Pneumothorax on right: Status: Acute Category: Medical Code(s): J93.9 - Pneumothorax, unspecified Plan # Secondary Spontaneous right pneumothorax: Denies any family history of frequent pneumothorax. Chest x-ray upon admission 03/10/23, large right pneumothorax noted. Hyperinflated lungs. No dense consolidation/airspace disease noted. Chest x-ray from 03/11/2023 pigtail catheter placed with significant improvement in the noted pneumothorax. 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 Status post pigtail catheter placement in the ER with improvement in pneumothorax, however patient continued to have waxing and waning of pneumothorax on most recent chest x-ray from this morning showed worsening pneumothorax compared to her chest x-ray from yesterday afternoon. Given her recurrence of pneumothorax despite having a pigtail catheter to suction the plan was made to proceed with surgical chest tube placement. Interval update: Status post chest tube placement with significant improvement in the medial pneumothorax and slight residual apical pneumothorax on x-ray from yesterday. X-ray from this morning showed an improvement in the apical pneumothorax with only trace right apical pneumothorax. Surgical team following the chest tube. Plan: Ronni every 8 hours scheduled F/U surgery recommendations # Thank you for involving pulmonary in this patient care. Please call pulmonary with any further questions or concerns.
--- NOTE | 2023-03-14 15:06 | PC.NURSE ---
PT IS RESTING IN BED. ALERT AND ORIENTED X4. EATING AND DRINKING FAIR. THIS MORNING PT WAS VERY UNCOMFORTABLE. NOTIFIED PCP. TORADOL WAS ORDERED AND HAS SEEMED TO MANAGE PAIN WELL. CHEST TUBE NOTED TO THE RIGHT SIDE CONNECTED TO LOW WALL SUCTION. LUNG SOUNDS DIMINISHED ON THE RIGHT SIDE. ABDOMEN SOFT/NON TENDER WITH ACTIVE BOWEL SOUNDS. WILL CONTINUE TO MONITOR.
[2023-03-15] VITALS (8 sets, daily range): BP systolic 111–126; BP diastolic 56–75; PULSE 67–96; RESP 16–20; TEMP 36.6–37.1; O2SAT 94–100; BMI 27.7
--- NOTE | 2023-03-15 03:20 | PC.NURSE ---
Addendum entered by Sandy Torrez RN 03/15/23 04:07: At 0300 assessment chest tube assessment shows no air bubbles in water chamber, did have small bubbles with deep inspiration. Crepitus was now noted on bilateral neck, right sided chest wall and right sided back. Patient denies any SOB. Dr. Fierro was paged per supervisor insulation, Message was left to call back, per House Dr. Brown (surgeon who placed chest tube) was contacted. With Dr. Brown on the phone chest tube system was checked, bandage was removed for visualization, no signs of any tube disconnection. STAT xray was ordered and obtained. Per Dr. Brown will call with results. Er doctor Dr. Sanders reviewed xray independently and states looks ok, continue to monitor . Waiting for official report and will call Kevin with update. Original Note: At 0000 assessment of chest tube was performed with no complications, small air bubbles present intermittently, no crepitus is noted. Patient denied any SOB.
[2023-03-15] MEDS: KETOROLAC 30MG/ML VIAL 30 MG IV ×4 (03:37→21:43)
--- NOTE | 2023-03-15 04:38 | PC.NURSE ---
Dr. Brown called back for results at time of contact final result was not in from radiology so provided Kevin was given update from Dr. Sanedrs no emergent changes. Dr. Brown states if nothing critical no need to call just continue to monitor. Final report was read by radiology showing worsening and extensive subq emphysema, but pneumothorax improving (see report). Will continue to monitor chest tube and patient status.
--- NOTE | 2023-03-15 05:33 | PC.NURSE ---
Patient has rested well this shift. Independently been walking to bathroom, patient encouraged to use call ya for staff assistance. Patient states she feels better no c/o SOB, some reports of pain has been treated per MAR. Patient is AOx4, able to make needs known. See previous notes for chest tube assesment. Dressing has been reapplied, CDI. Lung sounds are diminished on right side base.
--- NOTE | 2023-03-15 06:00 | XR_ITS ---
PROCEDURE INFORMATION: Exam: XR Chest Exam date and time: 03/15/2023 3:56 AM Age: 53 years old Clinical indication: Device placement; Chest tube; Additional info: Right ptx TECHNIQUE: Imaging protocol: Radiologic exam of the chest. Views: 1 view. COMPARISON: CR XR CHEST PORTABLE 03/14/2023 5:31 AM FINDINGS: Tubes, catheters and devices: Indwelling right-sided chest tube stable in position with tip overlying the right mid lung and close proximity to right hilum. Lungs: Trace residual right apical intrapleural air. Bilateral lower lung field opacities likely atelectatic. Pleural spaces: Unremarkable. No pleural effusion. No pneumothorax. Heart/Mediastinum: Cardiac silhouette not enlarged. Vasculature: Minimal aortic arch calcification. Bones/joints: No acute fracture. Soft tissues: Extensive and progressive subcutaneous emphysema along right anterior and lateral chest wall and bilateral supraclavicular spaces. IMPRESSION: Bilateral lower lung field probable atelectasis. Indwelling large bore right chest tube with trace residual right apical pneumothorax.
[2023-03-15] MEDS: IPRATROPIUM/ALBUTEROL 3 ML NEB IH ×3 (06:23→19:36)
--- NOTE | 2023-03-15 08:27 | EXP.ACUTE.PN ---
Subjective *Date: 03/15/23 *Time: 08:27 Interval history: Patient with no new complaints, feels better today, less pain. Seems to have a small air leak in chest tube. Medical Exam Vital signs and Labs for Last 24 Hours: Vital Signs Temp Pulse Pulse Resp BP Pulse Ox O2 Del Method 03/15/23 07:37 98.0 F 92 H 20 124/66 99 Room Air 03/15/23 06:24 87 03/15/23 06:24 89 03/15/23 06:24 95 Room Air 03/15/23 05:00 Room Air 03/15/23 04:00 97.9 F 67 17 111/67 98 Room Air 03/15/23 00:00 98.6 F 96 H 17 126/75 94 L Room Air 03/14/23 20:00 98.4 F 93 H 16 109/74 L 99 Room Air 03/14/23 19:02 56 L 03/14/23 19:02 57 L 03/14/23 18:18 Room Air 03/14/23 16:00 98.5 F 94 H 18 104/66 L 97 Room Air 03/14/23 16:37 Room Air 03/14/23 15:32 Room Air 03/14/23 14:40 Room Air 03/14/23 13:55 66 03/14/23 13:55 71 03/14/23 13:55 94 L Room Air 03/14/23 13:00 Room Air 03/14/23 10:49 Non-Rebreather Intake and Output 03/14/23 03/15/23 03/15/23 23:59 07:59 15:59 Intake Total 240 / 1320 240 / 240 Output Total Balance 212 / 1278 212 / 212 Intake: Intake, Oral Amount 240 / 1320 240 / 240 Output: Output, Urine Amount 0 / 0 Output, Chest Tube Drainage Amount Right Mid-Axillary Chest Other: Number of Unmeasured Voids 1 Weight 193 lb 11.2 oz Patient Weight 03/15/23 23:59 Weight 193 lb 11.2 oz I & O for Labs for Last 24 Hours: Intake & Output 03/12/23 03/13/23 03/14/23 03/15/23 23:59 23:59 23:59 23:59 Intake Total 1190 / 1670 1580 / 1820 1080 / 1320 240 / 240 Output Total 0 / 0 224 / 224 42 / 42 28 / 28 Balance 1190 / 1670 1356 / 1596 1038 / 1278 212 / 212 Weight 185 lb 3.013 oz 186 lb 9.6 oz 189 lb 8.009 oz 193 lb 11.2 oz Constitutional: Present no acute distress Respiratory: Present CTA bilaterally Cardiac: Present Reg Rate and Rhythm GI: Present soft and normal bowel sounds; Absent distention or tenderness Extremities: Absent edema, clubbing or cyanosis Skin: Present intact Neuro: Present alert and awake Assessment and Plan *Assessment and plan (1) Pneumothorax on right: Status: Acute Category: Medical Code(s): J93.9 - Pneumothorax, unspecified (2) Acute bronchitis: Status: Acute Category: Medical Code(s): J20.9 - Acute bronchitis, unspecified (3) Impaired fasting glucose: Status: Acute Category: Medical Code(s): R73.01 - Impaired fasting glucose (4) Hyperlipemia: Status: Acute Category: Medical Code(s): E78.5 - Hyperlipidemia, unspecified Plan Pt is doing better, monitor for air leak, chest tube per surgery.
[2023-03-15] MEDS: METFORMIN 500MG TABLET 1000 MG PO (08:40)
[2023-03-15] MEDS: ATORVASTATIN 20MG TABLET 20 MG PO (08:40)
--- NOTE | 2023-03-15 08:51 | EXP.SURG.PN ---
Subjective Patient reports: no new complaints Narrative: Nursing concerns overnight regarding SQ emphysema. Morning chest film obtained revealed no evidence of left pneumothorax and only persistent right trace apical pneumothorax. Exam Data for Last 24 hours Vital signs and Labs for Last 24 Hours: Temp Pulse Resp BP Pulse Ox O2 Del Method O2 Flow Rate 98.0 F 92 H 20 124/66 99 Room Air 15 03/15/23 07:37 03/15/23 07:37 03/15/23 07:37 03/15/23 07:37 03/15/23 07:37 03/15/23 07:37 03/14/23 06:37 FiO2 100 03/14/23 07:51 I & O for Last 24 hours: Intake & Output 03/12/23 03/13/23 03/14/23 03/15/23 11:59 11:59 11:59 11:59 Intake Total 480 / 480 1550 / 1550 1220 / 1220 840 / 840 Output Total 0 / 0 200 / 200 38 / 38 56 / 56 Balance 480 / 480 1350 / 1350 1182 / 1182 784 / 784 Weight 185 lb 5 oz 186 lb 9.6 oz 189 lb 8.009 oz 193 lb 11.2 oz Constitutional Constitutional: no acute distress Routine Chest/Breast/Axilla Exam Comments: Mild SQ emphysema noted along right anterior shoulder/neck (periclavicular) *Routine Respiratory Exam Respiratory: Absent respiratory distress Comments: Air leak persist with deeper respiration/cough. Progress Note: A&P Assessment and plan (1) Pneumothorax on right: Status: Acute Assessment and plan: She is now on day 2 with 24Fr right-sided chest tube in place. Persistent air leak (particularly with deep breathing/cough) noted. Increase suction to 40 Secondary to size of trace persistent apical pneumothorax, an additional thoracostomy/pneumothorax tube would likely not be beneficial. If airleak continues to persist...she may ultimately require transfer to tertiary facility with thoracic surgical capabilities. In addition, consideration of chest CT within the next 24 to 48 hours if airleak persists. (2) Acute bronchitis: Status: Acute (3) Impaired fasting glucose: Status: Acute (4) Hyperlipemia: Status: Acute
[2023-03-15] MEDS: MORPHINE 4MG/ML SYRINGE 4 MG IV ×2 (13:28→19:58)
[2023-03-15] MEDS: DOCUSATE SODIUM 100 MG CAPSULE PO (16:43)
--- NOTE | 2023-03-15 16:54 | PC.NURSE ---
Patient A&Ox4 and vss. Patient continues to tolerate chest tube only requiring one dose of prn morphine this shift. Patient has known subcutaneous emphysema with no c/o SOA
--- NOTE | 2023-03-15 23:11 | PC.NURSE ---
Addendum entered by Lilli Grover RN 03/16/23 02:57: when rechecking the sq emphysema it is still along right collar bone, Jaw line and upper right back is not is as prominent as earlier assessment. Original Note: subqutanious air felt through the right sided collar bone, up in to the right jaw line. Down the back on the right side, does not cross midline.
[2023-03-16] VITALS (9 sets, daily range): BP systolic 104–123; BP diastolic 51–76; PULSE 74–91; RESP 16–18; TEMP 36.7–36.9; O2SAT 90–98; BMI 27.3
[2023-03-16] MEDS: KETOROLAC 30MG/ML VIAL 30 MG IV (02:51)
--- NOTE | 2023-03-16 06:00 | XR_ITS ---
PROCEDURE INFORMATION: Exam: XR Chest Exam date and time: 03/16/2023 6:19 AM Age: 53 years old Clinical indication: Device placement; Chest tube; Additional info: Right ptx TECHNIQUE: Imaging protocol: Radiologic exam of the chest. Views: 1 view. COMPARISON: CR XR CHEST PORTABLE 03/15/2023 3:56 AM FINDINGS: Tubes, catheters and devices: Stable right thoracostomy tube. Lungs: Stable atelectasis in the left base Pleural spaces: Trace residual right pneumothorax. Heart/Mediastinum: Unremarkable. No cardiomegaly. Bones/joints: Unremarkable. Soft tissues: Again noted is extensive subcutaneous emphysema in the soft tissues of the neck and right hemithorax . IMPRESSION: 1. Again noted is extensive subcutaneous emphysema in the soft tissues of the neck and right hemithorax . 2. Stable right thoracostomy tube. 3. Trace residual right pneumothorax.
--- NOTE | 2023-03-16 06:14 | PC.NURSE ---
Patient has had a good night. Has been able to sleep and pain has been at a minimum. See MAR. Patient stated that she thinks she is getting better and states she feels better this morning. The Chest tube remains in place with the dressing clean dry and intact. Drainage is marked for my shift on the Chest tube. For this shift we have had 8ml of output. The patient has not complained of being SOB or complained of anything this shift other than pain at the beginning. No other issues during the shift.
[2023-03-16] MEDS: IPRATROPIUM/ALBUTEROL 3 ML NEB IH ×3 (06:20→19:29)
--- NOTE | 2023-03-16 07:40 | EXP.ACUTE.PN ---
Subjective *Date: 03/16/23 *Time: 07:40 Interval history: Patient with no new complaints today, still with an air leak on chest tube Medical Exam Vital signs and Labs for Last 24 Hours: Vital Signs Temp Pulse Pulse Resp BP Pulse Ox O2 Del Method 03/16/23 07:27 Room Air 03/16/23 07:26 Room Air 03/16/23 06:20 89 03/16/23 06:20 91 H 03/16/23 06:20 90 L Room Air 03/16/23 06:53 Room Air 03/16/23 05:00 Room Air 03/16/23 04:00 98.1 F 88 17 109/51 L 96 Room Air 03/16/23 02:59 Room Air 03/16/23 01:00 Room Air 03/16/23 00:00 Room Air 03/15/23 23:00 Room Air 03/15/23 21:00 Room Air 03/15/23 20:00 Room Air 03/15/23 20:00 98.7 F 82 17 119/56 L 100 Room Air 03/15/23 19:50 83 03/15/23 19:50 81 03/15/23 15:22 98.7 F 82 16 125/66 97 Room Air 03/15/23 13:12 85 03/15/23 13:12 86 Intake and Output 03/15/23 03/15/23 03/16/23 15:59 23:59 07:59 Intake Total 470 / 1100 240 / 1100 150 / 150 Output Total 0 / 0 Balance 470 / 1045 213 / 1045 150 / 150 Intake: Intake, Oral Amount 470 / 1100 240 / 1100 150 / 150 Output: Output, Urine Amount 0 / 0 Output, Chest Tube Drainage Amount Right Mid-Axillary Chest Other: Number of Unmeasured Voids 2 Weight 191 lb Patient Weight 03/16/23 23:59 Weight 191 lb I & O for Labs for Last 24 Hours: Intake & Output 03/13/23 03/14/23 03/15/23 03/16/23 23:59 23:59 23:59 23:59 Intake Total 1580 / 1820 1080 / 1320 950 / 1100 150 / 150 Output Total 224 / 224 42 / 42 55 / 55 0 / 0 Balance 1356 / 1596 1038 / 1278 895 / 1045 150 / 150 Weight 186 lb 9.6 oz 189 lb 8.009 oz 193 lb 11.2 oz 191 lb Constitutional: Present no acute distress Respiratory: Present CTA bilaterally Cardiac: Present Reg Rate and Rhythm GI: Present soft and normal bowel sounds; Absent distention or tenderness Extremities: Absent edema, clubbing or cyanosis Skin: Present intact Neuro: Present alert and awake Assessment and Plan *Assessment and plan (1) Pneumothorax on right: Status: Acute Category: Medical Code(s): J93.9 - Pneumothorax, unspecified (2) Acute bronchitis: Status: Acute Category: Medical Code(s): J20.9 - Acute bronchitis, unspecified (3) Impaired fasting glucose: Status: Acute Category: Medical Code(s): R73.01 - Impaired fasting glucose (4) Hyperlipemia: Status: Acute Category: Medical Code(s): E78.5 - Hyperlipidemia, unspecified Plan Pt is doing better, monitor for air leak, chest tube per surgery.
--- NOTE | 2023-03-16 08:53 | EXP.SURG.PN ---
Subjective Patient reports: no new complaints Exam Data for Last 24 hours Vital signs and Labs for Last 24 Hours: Temp Pulse Resp BP Pulse Ox O2 Del Method O2 Flow Rate 98.5 F 86 17 104/65 L 94 L Room Air 15 03/16/23 07:46 03/16/23 07:46 03/16/23 07:46 03/16/23 07:46 03/16/23 07:46 03/16/23 07:46 03/14/23 06:37 FiO2 100 03/14/23 07:51 I & O for Last 24 hours: Intake & Output 03/13/23 03/14/23 03/15/23 03/16/23 11:59 11:59 11:59 11:59 Intake Total 1550 / 1550 1220 / 1220 840 / 840 1330 / 1330 Output Total 200 / 200 38 / 38 56 / 56 27 / 27 Balance 1350 / 1350 1182 / 1182 784 / 784 1303 / 1303 Weight 186 lb 9.6 oz 189 lb 8.009 oz 193 lb 11.2 oz 191 lb Constitutional Constitutional: no acute distress *Routine Respiratory Exam Respiratory: Absent respiratory distress Comments: Persistent air leak with deep breathing and cough Pleur-evac currently at 40 *Routine Cardiovascular Exam Cardiovascular: Absent tachycardia Progress Note: A&P Assessment and plan (1) Pneumothorax on right: Status: Acute Assessment and plan: She is now on day 3 with 24Fr right-sided chest tube in place. Suction now at 40. Persistent air leak (particularly with deep breathing/cough) noted. Secondary to size of trace persistent apical pneumothorax, an additional thoracostomy/pneumothorax tube would likely not be beneficial. If airleak continues to persist...she may ultimately require transfer to tertiary facility with thoracic surgical capabilities. In addition, consideration of chest CT within the next 24 hours if airleak persists (secondary to the possibility of anterior pneumothorax that is poorly defined on current films).
[2023-03-16 09:44] LABS: Basophils % 0.6 % (0.1-2.0); Eosinophils # 0.1 K/mm3 (0.0-0.4); Eosinophils % 2.6 % (0.1-12.0); Hematocrit 36.3 % (37.0-47.0); Lymphocytes # 1.5 K/mm3 (0.7-4.5); Lymphocytes % 30.4 % (10-50); Mean Corpuscular Hemoglobin 31.5 pg (27.0-31.2); Mean Corpuscular Volume 95.5 fl (81-99); Mean Platelet Volume 7.8 fl (7.4-10.4); Monocytes # 0.2 K/mm3 (0.1-1.0); Monocytes % 3.1 % (1.7-9.3); Neutrophils # 3.2 K/mm3 (1.8-7.8); Neutrophils % 63.3 % (37.0-80.0); Platelet Count 202 K/mm3 (142-424); Red Cell Distribution Width 13.9 % (11.5-17.5)
[2023-03-16 09:51] LABS: Anion Gap 6.1 mEq/L (5-15); Blood Urea Nitrogen 11 mg/dl (7-17); Calcium 8.8 mg/dl (8.4-10.2); Carbon Dioxide 28 mmol/L (22.0-30.0); Chloride 105 mmol/L (98-107); Creatinine Clearance Estimated 100 mL/min (50-200); Estimated Glomerular Filt Rate 66 ml/min (>60); GFR (African American) 80 ML/MIN (>60); Glucose 121 mg/dl (74-100); Potassium 4.1 mmoL/L (3.5-5.1); Sodium 135 mmol/L (136-145)
[2023-03-16] MEDS: ENOXAPARIN 40MG/0.4ML SYRINGE 40 MG SQ (10:21)
[2023-03-16] MEDS: DOCUSATE SODIUM 100 MG CAPSULE PO (10:22)
[2023-03-16] MEDS: ATORVASTATIN 20MG TABLET 20 MG PO (10:22)
[2023-03-16] MEDS: METFORMIN 500MG TABLET 1000 MG PO (10:22)
[2023-03-16] MEDS: KETOROLAC 10MG TABLET 10 MG PO ×3 (10:22→20:16)
--- NOTE | 2023-03-16 15:07 | PC.NURSE ---
PT IS RESTING IN BED WITH FAMILY AT BEDSIDE. ALERT AND ORIENTED X4. EATING AND DRINKING WELL. DIMINISHED LUNG SOUNDS ON THE RIGHT SIDE WITH CREPITUS NOTED AT THE COLLAR BONE. ABDOMEN SOFT/NON TENDER WITH ACTIVE BOWEL SOUNDS. CHEST TUBE NOTED TO THE RIGHT SIDE WITH DRESSING C/D/I. WILL CONTINUE TO MONITOR.
--- NOTE | 2023-03-16 16:21 | PC.NURSE ---
IV IN THE L[facility] STARTED LEAKING THIS SHIFT. PT REQUESTED TO HAVE IV LEFT OUT B/C IT WAS NOT BEING USED AT THIS TIME. NOTIFIED AND HE STATED IT WOULD BE OKAY TO LEAVE IV OUT FOR NOW.
[2023-03-17 04:00] VITALS: BP 113/73; PULSE 79; RESP 16; TEMP 36.9; O2SAT 96; BMI 27.1
--- NOTE | 2023-03-17 05:20 | PC.NURSE ---
Shift summary: Pt AOx4, sleeping throughout shift, able to move independently between bed and BC. VSS on RA. CT present, 7 mL output at this time, drainage C/D/I. See chest tube management assessments. Crepitus remains superior to R clavicle and extends to uppermost R chest area only; pt denies feeling any crepitus in R lower chest, back, or neck at this time. pt c/o aggravating discomfort in R chest, where CT present; denies needing other pain medications at this time. No acute events or issues overnight at this time. Fall precautions implemented and call light within reach.
[2023-03-17 06:18] VITALS: PULSE 90; PULSE 94
[2023-03-17] MEDS: IPRATROPIUM/ALBUTEROL 3 ML NEB IH ×3 (06:18→18:57)
[2023-03-17 08:00] VITALS: BP 128/74; PULSE 82; RESP 18; TEMP 36.8; O2SAT 99
[2023-03-17] MEDS: ATORVASTATIN 20MG TABLET 20 MG PO (08:30)
[2023-03-17] MEDS: DOCUSATE SODIUM 100 MG CAPSULE PO (08:30)
[2023-03-17] MEDS: ENOXAPARIN 40MG/0.4ML SYRINGE 40 MG SQ (08:30)
[2023-03-17] MEDS: METFORMIN 500MG TABLET 1000 MG PO (08:30)
[2023-03-17] MEDS: KETOROLAC 10MG TABLET 10 MG PO ×3 (08:30→20:15)
--- NOTE | 2023-03-17 09:24 | XR_ITS ---
PROCEDURE INFORMATION: Exam: XR Chest Exam date and time: 03/17/2023 9:46 AM Age: 53 years old Clinical indication: Other: R ptx; Additional info: Right ptx TECHNIQUE: Imaging protocol: Radiologic exam of the chest. Views: 1 view. COMPARISON: CR XR CHEST PORTABLE 03/16/2023 6:19 AM FINDINGS: Tubes, catheters and devices: Right chest tube unchanged projecting over the right mid lung zone. Lungs: Redemonstration of extensive subcutaneous emphysema projecting over the right upper chest wall and supraclavicular fossa bilaterally not significantly changed in obscuring assessment of the right lung apex. Difficult to exclude small residual right apical pneumothorax. Remaining lung nix are clear. Pleural spaces: No significant pleural effusions. Heart/Mediastinum: Unremarkable. No cardiomegaly. Bones/joints: Unremarkable for age. IMPRESSION: 1. Extensive subcutaneous emphysema primarily involving the right upper chest wall relatively unchanged and obscuring right lung apex. 2. Questionable small residual right apical pneumothorax unchanged.
--- NOTE | 2023-03-17 09:45 | EXP.ACUTE.PN ---
Subjective *Date: 03/17/23 *Time: 09:45 Interval history: Patient feels good, no new complaints. Medical Exam Vital signs and Labs for Last 24 Hours: Vital Signs Temp Pulse Pulse Resp BP Pulse Ox O2 Del Method 03/17/23 09:00 Room Air 03/17/23 08:00 Room Air 03/17/23 08:00 99 Room Air 03/17/23 08:00 98.3 F 82 18 128/74 99 Room Air 03/17/23 06:48 Room Air 03/17/23 06:18 90 03/17/23 06:18 94 H 03/17/23 05:00 Room Air 03/17/23 04:00 98.5 F 79 16 113/73 96 Room Air 03/17/23 03:00 Room Air 03/17/23 00:58 Room Air 03/16/23 23:00 Room Air 03/16/23 21:00 Room Air 03/16/23 20:30 18 98 Room Air 03/16/23 19:42 98.4 F 90 18 123/76 98 Room Air 03/16/23 20:08 77 03/16/23 20:07 74 03/16/23 18:07 Room Air 03/16/23 17:00 Room Air 03/16/23 16:00 Room Air 03/16/23 15:24 98.4 F 80 16 120/64 95 Room Air 03/16/23 15:00 Room Air 03/16/23 13:23 89 03/16/23 13:23 89 03/16/23 13:23 92 L Room Air 03/16/23 12:57 Room Air 03/16/23 11:00 Room Air Intake and Output 03/16/23 03/17/23 03/17/23 23:59 07:59 15:59 Intake Total 470 / 1560 0 / 270 270 / 270 Output Total 0 / 7 Balance 460 / 1550 -7 / 263 270 / 263 Intake: Intake, Oral Amount 470 / 1560 0 / 270 270 / 270 Output: Output, Urine Amount 0 / 0 0 / 0 Output, Chest Tube Drainage 7 Amount Right Mid-Axillary Chest Other: Number of Voids 0 Number of Unmeasured Voids 1 Weight 190 lb Patient Weight 03/17/23 23:59 Weight 190 lb Laboratory Results - last 24 hr 12/24/23 09:25: Sodium 135 L, Potassium 4.1, Chloride 105, Carbon Dioxide 28, Anion Gap 6.1, BUN 11, Creatinine 0.90, Estimated Creat Clear 100, Estimated GFR 66, Est GFR ( Amer) 80, Glucose 121 H, Calcium 8.8 I & O for Labs for Last 24 Hours: Intake & Output 03/14/23 03/15/23 03/16/23 03/17/23 23:59 23:59 23:59 23:59 Intake Total 1080 / 1320 950 / 1100 1560 / 1560 270 / 270 Output Total 42 / 42 55 / 55 Balance 1038 / 1278 895 / 1045 1550 / 1550 263 / 263 Weight 189 lb 8.009 oz 193 lb 11.2 oz 191 lb 190 lb Constitutional: Present no acute distress Respiratory: Present CTA bilaterally Cardiac: Present Reg Rate and Rhythm GI: Present soft and normal bowel sounds; Absent distention or tenderness Extremities: Absent edema, clubbing or cyanosis Skin: Present intact Neuro: Present alert and awake Assessment and Plan *Assessment and plan (1) Pneumothorax on right: Status: Acute Category: Medical Code(s): J93.9 - Pneumothorax, unspecified (2) Acute bronchitis: Status: Acute Category: Medical Code(s): J20.9 - Acute bronchitis, unspecified (3) Impaired fasting glucose: Status: Acute Category: Medical Code(s): R73.01 - Impaired fasting glucose (4) Hyperlipemia: Status: Acute Category: Medical Code(s): E78.5 - Hyperlipidemia, unspecified Plan Chest still has a slight air leak, but seems less today, continue current treatment.
--- NOTE | 2023-03-17 10:15 | EXP.SURG.PN ---
Subjective Patient reports: no new complaints Exam Data for Last 24 hours Vital signs and Labs for Last 24 Hours: Temp Pulse Resp BP Pulse Ox O2 Del Method O2 Flow Rate 98.3 F 82 18 128/74 99 Room Air 15 03/17/23 08:00 03/17/23 08:00 03/17/23 08:00 03/17/23 08:00 03/17/23 08:00 03/17/23 09:00 03/14/23 06:37 FiO2 100 03/14/23 07:51 I & O for Last 24 hours: Intake & Output 03/14/23 03/15/23 03/16/23 03/17/23 11:59 11:59 11:59 11:59 Intake Total 1220 / 1220 840 / 840 1330 / 1330 1210 / 1210 Output Total 38 / 38 56 / 56 Balance 1182 / 1182 784 / 784 1303 / 1303 1193 / 1193 Weight 189 lb 8.009 oz 193 lb 11.2 oz 191 lb 190 lb Constitutional Constitutional: no acute distress *Routine Respiratory Exam Respiratory: Absent respiratory distress Comments: Initially no airleak appreciable with first deep breath/cough; however, with additional breaths/conversation a fairly persistent leak noted. Progress Note: A&P Assessment and plan (1) Pneumothorax on right: Status: Acute Assessment and plan: She is now day 4 with 24Fr right-sided chest tube in place. Suction remains at 40. Persistent air leak noted with prolonged deep breathing and conversational speech. Today's chest x-ray reveals possible small persistent apical pneumothorax; however, overall haziness likely secondary to overlying subcutaneous emphysema limits detailed assessment particularly on nondedicated monitor. Will await final read per radiology. Secondary to size of trace persistent apical pneumothorax, an additional thoracostomy/pneumothorax tube would likely not be beneficial. If airleak continues to persist tomorrow...she will likely benefit from transfer to tertiary facility with thoracic surgical capabilities. .
[2023-03-17 14:07] VITALS: PULSE 88; PULSE 90
[2023-03-17 16:00] VITALS: BP 141/66; PULSE 98; RESP 18; TEMP 36.8; O2SAT 99
--- NOTE | 2023-03-17 16:47 | PC.NURSE ---
Addendum entered by Sienna Gilbert RN 03/17/23 18:41: 6ML SEROSANG FLUID OUT THIS SHIFT. Original Note: A&OX4. IN [employer] TODAY. TOLERATING RA WELL. CHEST TUBE PRESENT TO R SIDE. DX CDI. WILL CHART DRAINAGE AT END OF SHIFT. PT STATES PAIN HAS BEEN PRETTY CONTROLLED THIS SHIFT, ONLY RECEIVING SCHEDULED TORADOL. FAMILY IN AND OUT TODAY. PT UP TO BC, TOLERATING WELL. HAS HAD NO OTHER NEEDS OR C/O, VSS.
[2023-03-17 18:58] VITALS: PULSE 88
[2023-03-18] VITALS (7 sets, daily range): BP systolic 110–131; BP diastolic 65–70; PULSE 50–87; RESP 16–20; TEMP 36.7–37; O2SAT 91–100; BMI 27.3
[2023-03-18] MEDS: KETOROLAC 10MG TABLET 10 MG PO ×4 (03:51→20:50)
--- NOTE | 2023-03-18 06:00 | XR_ITS ---
PROCEDURE INFORMATION: Exam: XR Chest Exam date and time: 03/18/2023 6:12 AM Age: 53 years old Clinical indication: Other: Pneumothorax; Additional info: Right ptx TECHNIQUE: Imaging protocol: Radiologic exam of the chest. Views: 1 view. COMPARISON: CR XR CHEST PORTABLE 03/17/2023 9:46 AM FINDINGS: Tubes, catheters and devices: A right chest tube is again noted in place. Lungs: No consolidation. Pleural spaces: Unremarkable. No pleural effusion. No definite pneumothorax. Heart/Mediastinum: Unremarkable. No cardiomegaly. Bones/joints: Unremarkable. Soft tissues: Subcutaneous emphysema is noted the would have neck and along the right axilla. In IMPRESSION: No significant change from the prior study.
[2023-03-18] MEDS: IPRATROPIUM/ALBUTEROL 3 ML NEB IH ×3 (06:03→20:05)
--- NOTE | 2023-03-18 07:54 | EXP.SURG.PN ---
Subjective Patient reports: no new complaints Exam Data for Last 24 hours Vital signs and Labs for Last 24 Hours: Temp Pulse Resp BP Pulse Ox O2 Del Method O2 Flow Rate 98.1 F 80 16 111/68 91 L Room Air 15 03/18/23 04:00 03/18/23 06:04 03/18/23 04:00 03/18/23 04:00 03/18/23 06:04 03/18/23 06:24 03/14/23 06:37 FiO2 100 03/14/23 07:51 I & O for Last 24 hours: Intake & Output 03/15/23 03/16/23 03/17/23 03/18/23 11:59 11:59 11:59 11:59 Intake Total 840 / 840 1330 / 1330 1210 / 1210 820 / 820 Output Total 56 / 56 Balance 784 / 784 1303 / 1303 1193 / 1193 814 / 814 Weight 193 lb 11.2 oz 191 lb 190 lb 191 lb 4.8 oz Constitutional Constitutional: no acute distress *Routine Respiratory Exam Respiratory: Absent respiratory distress Comments: Persistent air leak noted with breathing, conversation, and with coughing (somewhat more pronounced versus yesterday) Progress Note: A&P Assessment and plan (1) Pneumothorax on right: Status: Acute Assessment and plan: 24Fr right-sided chest tube in place (placed 03/13/23). Suction remains at 40. Persistent air leak noted (somewhat more pronounced today) Today's chest x-ray reveals possible tiny apical pneumothorax; however, overall haziness likely secondary to overlying subcutaneous emphysema limits detailed assessment (no definite pneumothorax noted per radiologist). No definitive pneumothorax remains per chest film. Small persistent anterior or trace apical remain a possibility. Most likely, an additional thoracostomy/pneumothorax tube would not be beneficial. I recommend transfer to tertiary facility with thoracic surgical capabilities.
[2023-03-18] MEDS: METHOCARBAMOL 500MG TABLET 500 MG PO (09:06)
[2023-03-18] MEDS: ATORVASTATIN 20MG TABLET 20 MG PO (09:07)
[2023-03-18] MEDS: ENOXAPARIN 40MG/0.4ML SYRINGE 40 MG SQ (09:07)
[2023-03-18] MEDS: DOCUSATE SODIUM 100 MG CAPSULE PO (09:07)
[2023-03-18] MEDS: METFORMIN 500MG TABLET 1000 MG PO (09:10)
--- NOTE | 2023-03-18 13:13 | PC.NURSE ---
report called to [facility].
--- NOTE | 2023-03-18 19:30 | PC.NURSE ---
Call received from son, Roly Rutledge whos call was forwarded to House phone per PARIS Reeder. He requests information as to why patient has not been transported to other facility for higher level of care, and is still inpatient at this facility. Explained that EMS transport has been extremely busy and has been unable to transport patient since transport request was placed at 1230 this afternoon. Explained that I would contact [facility] to try and obtain ETA for patient transport and return call with patient permission. Call placed to [facility] without answer x2. Information eventually obtained that patient is next on transport list at this time. TRN to patient bedside to explain situation and why transport has been delayed. Patient VU. Patient verbalizes that it ok to call son back at this time and update him on transport. Call place to [facility] and updated on EMS ETA which should in 2-3 hours. MANI. PARIS Reeder updated on current transportation status.
--- NOTE | 2023-03-20 08:36 | P.DS_ITS ---
General Admission date:: 03/12/23 Discharge date: 03/18/23 HPI HPI HPI: This patient is a 53-year-old female with a history of hyperlipidemia and diabetes presenting to the emergency department for evaluation with concern for shortness of breath. According to the patient, she has had cough for over 1 week. She was seen on 03/03/2023 at [facility] and diagnosed with acute bronchitis, but she was not getting better, so she followed up with her primary care provider yesterday who ordered a chest x-ray. She was called today and told that she had a pneumothorax. On medical record review, she has a large pneumothorax on the right. She was sent here for further evaluation and management. She states that she still had some cough and shortness of breath, no other concerns. She denies any history of cardiopulmonary issues. She is not a smoker. She denies any history of collapsed lung. No trauma recently. (above as per ER physician) The patient states she was so SOA yesterday she thought she was taking her last breath. She was evaluated in the ER and a chest tube was placed. She was admitted. Hospital Course Hospital Course Hospital Course: The chest tube was placed and the patient was able to breathe much better. Pulmonology was consulted. The initial chest x-ray after chest tube placement showed significant improvement in the pneumothorax, however another chest x-ray showed some worsening of the pneumothorax. The assistant maintenance manager started her on oxygen supplementation via a NRB mask to maintain oxygen saturations of 100%. He scheduled DuoNebs every 8 hours and increased the pigtail catheter suction to -40. She had another chest x-ray which showed some improvement in the pneumothorax. He wanted to continue the chest tube to suction at -40. Her home medications were resumed and she was able to get out of bed without any shortness of breath. She had another chest x-ray which showed a worsening pneumothorax compared to her chest x-ray from the previous day. Given the recurrence of pneumothorax despite having a pigtail catheter to suction, the plan was made to proceed with surgical chest tube placement. Dr. Brown was consulted. He placed a right thoracostomy tube on 03/13/2023. She she had less shortness of breath after chest tube placement but did have a significant amount of pain. Toradol was added for pain management. She had significant improvement in the pneumothorax on repeat chest x-ray after chest tube placement. She did develop a small leak in the chest tube particularly with deep breathing/coughing. The suction was increased to 40. Dr. Brown felt an additional thoracostomy/pneumothorax tube would likely not be beneficial. If the airleak continued to persist, he felt she would need transfer to a tertiary facility. She continued with persistent air leak with prolonged deep breathing and conversational speech. A repeat chest x-ray on 03/17/2023 showed a possible small persistent apical pneumothorax. By 03/18/2023 she continued with a persistent air leak that was somewhat more pronounced. A repeat chest x-ray revealed a possible tiny apical pneumothorax, however there was overall haziness likely secondary to overlying subcutaneous emphysema. Dr. Brown recommended transfer to a tertiary facility with thoracic surgical capabilities. A bed was found for her at and she was transferred. Exam Data for Last 24 hours Vital signs and Labs for Last 24 Hours: Temp Pulse Resp BP Pulse Ox O2 Del Method O2 Flow Rate 98.6 F 81 20 110/70 98 Room Air 15 03/18/23 20:00 03/18/23 20:05 03/18/23 20:00 03/18/23 20:00 03/18/23 20:00 03/18/23 21:00 03/14/23 06:37 FiO2 100 03/14/23 07:51 I & O for Last 24 hours: Intake & Output 03/17/23 03/18/23 03/19/23 03/20/23 11:59 11:59 11:59 11:59 Intake Total 1210 / 1210 1090 / 1090 600 / 600 Output Total 6 / 0 / 0 Balance 1193 / 1193 1084 / 1084 600 / 600 Weight 190 lb 191 lb 4.8 oz Narrative: Constitutional Constitutional: no acute distress *Routine HEENT Exam Head: Present normocephalic and atraumatic Eye: Present EOMI and PERRL ENT: Present mucous membranes moist *Routine Neck Exam Neck: Present supple and full ROM *Routine Respiratory Exam Respiratory: Present CTA bilaterally Comments: chest tube in place on the right *Routine Cardiovascular Exam Cardiovascular: Present RRR *Routine Abdominal Exam Abdominal: Present soft and normoactive bowel sounds; Absent tenderness *Routine Rectal Exam Rectal:: deferred *Routine Genitalia Exam Genitalia:: deferred *Routine Extremities Exam Extremities: Absent cyanosis, clubbing or edema *Routine Skin Exam Skin: Present intact; Absent erythema *Routine Neurological Exam Neurological: Present alert and oriented X3 DS: Diagnosis Discharge Diagnosis (1) Pneumothorax on right: Status: Acute Code(s): J93.9 - Pneumothorax, unspecified Meds Home Medications and Allergies Home Medications Medication Instructions Recorded Confirmed Type metformin 500 mg tablet,extended 1,000 mg PO DAILY pre-diabetic 03/03/23 03/11/23 History release 24 hr atorvastatin 20 mg tablet 20 mg PO HS 03/11/23 03/11/23 History cyclobenzaprine 10 mg tablet 10 mg PO TIDP PRN Muscle Pain 03/12/23 03/12/23 History New Prescriptions to Start Prescriptions: Allergies Allergy/AdvReac Type Severity Reaction Status Date / Time No Known Allergies Allergy Verified 03/03/23 20:18 Discharge Plan Disposition Patient Disposition: Xfer Short-Term Hosp Condition: Fair Discharge Order Discharge Orders: Discharge Order (Routine); Ordered 03/18/23 Ordered By: Wesley Trent Follow up Plan Follow up with: Wesley Trent MD [Primary Care Provider] - 2 weeks Prescriptions/Medication Reconciliation: Continued atorvastatin 20 mg tablet 20 mg PO HS cyclobenzaprine 10 mg tablet 10 mg PO TIDP PRN (Reason: Muscle Pain) Patient Comments: TAKE 1 TABLET BY MOUTH THREE TIMES DAILY NEEDED metformin 500 mg tablet extended release 24 hr 1,000 mg PO DAILY Patient Comments: TAKE 2 TABLETS BY MOUTH ONCE DAILY Problem Reconciliation Problems Reviewed?: Yes Patient Discharge Instructions ACTIVITY: Continue current activity DIET: continue same diet Stand Alone Forms: Transfer Record Patient Instructions: DI for Pneumothorax, DI for Chest Tube Insertion Providers Primary Care Provider: Wesley Trent Admit Provider: Taylor Zamora Attending Provider: Wesley Trent
== END 2023-03-18 21:55 | disposition short-term general hospital (02) | DRG 201 ==
LOC: ER 19:18 → 2ND 03-12 07:48
PROVIDERS: Admitting Provider Family Medicine; Emergency Provider Emergency Medicine; PCP Family Medicine; Visit Provider Family Medicine
DX: J93.11 Primary spontaneous pneumothorax (principal); E78.5 Hyperlipidemia, unspecified; E11.9 Type 2 diabetes mellitus without complications; Z79.84 Long term (current) use of oral hypoglycemic drugs; Z87.891 Personal history of nicotine dependence; J20.9 Acute bronchitis, unspecified
CPT/HCPCS: 32551 ×2; 36415; 71045; 71046; 80048; 85025; 94640; 94760; 94761; 99291; J2405

== ENCOUNTER 2023-07-24 14:48 | Outpatient (POV) | payer BC, SELFPAY ==
[2023-07-24 15:00] VITALS: BP 124/87; PULSE 98; RESP 18; O2SAT 98; BMI 27.2
--- NOTE | 2023-07-24 16:00 | EXP.PAIN.OV ---
HPI Data of Consult Patient: new to practice Consult date: 07/24/23 Requesting Physician: Betty Camara APRN Primary Care Provider: Wesley Trent MD Consult Narrative Reason for consult: Right upper quadrant pain History of present illness: Ms. Rutledge is a 53 year old female who presents today as a new patient. She is a referral from Dr. Trent's office. Today she rates her pain a 10 out of 10. Patient states her pain is all related to having to have a chest tube placed at the end of last year. Patient states that she initially came down with what she thought was bronchitis. Patient states after a couple of weeks of not getting any improvement she did go back and was diagnosed that she actually had a lung collapsed. Patient did ultimately end up having a chest tube placed in February and had it removed on March 26. Patient states from that time on she has continued to have chronic pain where the chest tube was removed and radiating down under her right breast. Patient does describe this as a sharp pain that is constant and interferes with her ability to perform activities of daily living. Patient states that she has tried Tylenol and ibuprofen along with heat and ice and topicals with minimal relief. Patient states that she was also given a oral pain medication of oxycodone and that in times that it was really bad she had to rely on this medication. Patient states that she did use Tylenol 500 until it ran out and that she did try the Flexeril that was given to her however she has only had very minimal relief. Patient is interested in any help we may be able to provide. Her Vito has been reviewed and is appropriate. CC: Betty Camara APRN [facility] Disclaimer: The information contained in this section may have been updated after the patient was seen, as this information can be updated by other users. Medical History (Updated 07/24/23 @ 16:04 by Betty Camara APRN) Impaired fasting glucose Hyperlipemia Cyst Contact dermatitis Right ankle sprain Abscess of lymph node of neck Surgical History (Updated 03/12/23 @ 09:05 by ADAMARIS Moss) History of oophorectomy History of endometrial ablation History of appendectomy History of tubal ligation History of partial hysterectomy Family History Mother Family history of myocardial infarction Hyperlipidemia Father Hyperlipidemia Social History (Updated 03/12/23 @ 00:55 by Brittaney Zamora RN) Smoking Status: Former smoker tobacco type: cigarettes packs per day: 1 years smoked: 25 smoking status stop date: 12/29/2019 second hand exposure: Yes alcohol intake: never substance use type: denies use current occupational status: employed and other Travel in the last 8 weeks: None household members: spouse housing: house current occupational exposures/hazards: No caffeine: Yes Review of Systems Review of Systems Review of systems:: pertinent systems reviewed and negative unless documented below Review of systems (narrative): Review of Systems: General: No recent weight changes, no fever, no sleep disturbances Respiratory: No cough, no shortness of air, no recurring pulmonary infections Cardiovascular/peripheral vascular: No chest pain, no palpitations, no edema, no shortness of breath Gastrointestinal: No new onset incontinence, normal bowel movements reported Genitourinary: No new onset incontinence Musculoskeletal: Right upper quadrant pain Psychiatric: [Normal mood/affect] Neurological: [Denies weakness in extremities], [denies balance issues] Meds Home Medications and Allergies Home Medications Medication Instructions Recorded Confirmed Type metformin 500 mg tablet,extended 1,000 mg PO DAILY pre-diabetic 03/03/23 03/11/23 History release 24 hr atorvastatin 20 mg tablet 20 mg PO HS 03/11/23 03/11/23 History cyclobenzaprine 10 mg tablet 10 mg PO TIDP PRN Muscle Pain 03/12/23 03/12/23 History New Prescriptions to Start Prescriptions: Allergies Allergy/AdvReac Type Severity Reaction Status Date / Time No Known Allergies Allergy Verified 03/03/23 20:18 Objective Narrative: Physical Exam: General: Alert and oriented x3, no acute distress, pleasant and cooperative Lungs: Respirations even and unlabored, symmetrical chest expansion Eyes: PERRL Musculoskeletal: Flexion and extension of thoracic [spine] somewhat guarded secondary to pain point tenderness noted along lateral right upper quadrant Neurological: Speech clear, no gross sensory deficit Assessment and Plan *Assessment and plan (1) Myofascial pain: Status: Acute Category: Medical Code(s): M79.18 - Myalgia, other site Plan Patient is experiencing significant pain in and around her right upper quadrant muscles related to where a prior chest tube had been placed. Patient did have limited range of motion of her thoracic spine with point tenderness along her serratus anterior muscles of the right side. I have discussed with the patient that she may benefit from trigger point injections in this location. Risk and benefits were discussed with patient and she would like to proceed forward with this plan of care. I will also order the patient a compounded cream. Patient will be scheduled for trigger point injections of her right serratus anterior muscles. Patient has been instructed to contact the clinic with any concerns before the next appointment. Dr. Portillo has reviewed this note and agrees with this plan of care. This note was dictated using voice recognition software and make contain errors or omissions.
== END 2023-07-24 23:59 | disposition home or self-care (01) ==
LOC: SC.PAIN 14:48
PROVIDERS: PCP Family Medicine; Visit Provider Nurse Practitioner Family
DX: M79.18 Myalgia, other site (principal)
CPT/HCPCS: 99202; G0463

== ENCOUNTER → 2023-08-12 12:44 | Day surgery (SDC) | payer BC, SELFPAY ==
[2023-08-12 13:18] VITALS: BP 124/77; BP 134/83; PULSE 100; PULSE 99; RESP 18; TEMP 36.8; O2SAT 100; O2SAT 97; BMI 27.1
[2023-08-12] MEDS: BUPIVACAINE 0.25% 10ML INJ 25 MG IJ (13:19)
[2023-08-12] MEDS: methylPREDNISolone ACETATE 80MG/ML VIAL 80 MG (13:19)
[2023-08-12] MEDS: LIDOCAINE 1% 5ML PF VIAL 5 ML (13:19)
[2023-08-12 13:25] VITALS: BP 113/79; PULSE 91; RESP 18; O2SAT 98
--- NOTE | 2023-08-12 13:26 | EXP.PAIN.PRO ---
Procedure Date: 08/12/23 Time: 13:20 Anesthesiologist:: Gerhard Caro CRNA Complications:: None Pre-procedure Diagnosis:: Myofascial pain right lateral thoracic chest wall. Post-procedure Diagnosis:: Same. Indications for Procedure:: Patient is a pleasant 53-year-old female comes our clinic today with myofascial pain on the right lateral chest wall secondary to chest tube placement for spontaneous pneumothorax March 2023. Patient continued to have pain in this area with referred pain underneath the right breast. Patient underwent chest tube placement as well as chest wall scraping due to chronic empyema. Procedure Details:: Details of the procedure explained to the patient. The patient taken the procedure room placed in the left lateral position on the fluoroscopy table. Using fluoroscopy guidance and staying rather superficial under the skin trigger point injections were given around the chest tube scar using a 25-gauge inch and half needle and 10 cc of a solution of combined 1% lidocaine +0.25% Marcaine and 40 mg of Depo-Medrol. Patient tolerated procedure without difficulty. There are no complications. Plan and Disposition:: Patient was discharged without incident.
== END | disposition home or self-care (01) ==
PROVIDERS: PCP Family Medicine; Visit Provider Nurse Anesthetist, Certified Registered
DX: M79.18 Myalgia, other site (principal)
CPT/HCPCS: 20552; 77002; J1010

== ENCOUNTER 2023-09-04 15:17 | Outpatient (POV) | payer BC, SELFPAY ==
[2023-09-04 15:21] VITALS: BP 128/79; PULSE 102; RESP 16; O2SAT 96; BMI 28.7
--- NOTE | 2023-09-04 15:59 | EXP.PAIN.SOA ---
[facility] Pain Management SOAP Note Subjective:: Patient is a pleasant 53-year-old female who presents today for follow-up of trigger point injections of right lateral chest wall secondary to chest tube placement for spontaneous pneumothorax. This injection occurred on 08/12/2023. Patient does state that she did have some improvement with these injections however she continues to have the chronic pain all throughout her right upper quadrant. Patient states the numbness is still there however that pain that gets severe with any certain movements such as lifting or pulling on objects. She states that she has to do these type of movements while she is at work and the pain is just so severe. Patient has had this pain going on for nearly 6 months and feels like it really has not changed much. Patient was prescribed compounded cream however she states she did not really notice any improvement with that his Vito has been reviewed and is appropriate. Review of Systems: General: No recent weight changes, no fever, no sleep disturbances Respiratory: No cough, no shortness of air, no recurring pulmonary infections Cardiovascular/peripheral vascular: No chest pain, no palpitations, no edema, no shortness of breath Gastrointestinal: No new onset incontinence, normal bowel movements reported Genitourinary: No new onset incontinence Musculoskeletal: Right upper quadrant pain Psychiatric: [Normal mood/affect] Neurological: [Denies weakness in extremities], [denies balance issues] Objective:: Physical Exam: General: Alert and oriented x3, no acute distress, pleasant and cooperative Lungs: Respirations even and unlabored, symmetrical chest expansion Eyes: PERRL Musculoskeletal: Flexion and extension of thoracic [spine] somewhat guarded secondary to pain, [antalgic gait noted] point tenderness along the right upper quadrant Neurological: Speech clear, no gross sensory deficit Assessment:: Right upper quadrant pain, myofascial pain, right upper quadrant, mid back pain Plan:: I did discuss with patient at length that we can always try an additional trigger point injections or a thoracic epidural however patient states that she is now in a new quarter with her deductible and that her has also been going through several things and so she is trying to be mindful of the cost. I have discussed with the patient that we can follow-up with these options at a later date. I will order the patient lidocaine 5% patches and try a trial of diclofenac 75 mg twice daily. Patient is agreeable to this plan of care. Patient has been counseled to discontinue all other NSAIDs while taking this medication and to take it with food to minimize GI upset. Patient will return to clinic in 2 weeks for reevaluation of symptoms and plan of care. Patient has been instructed to contact the clinic with any concerns before the next appointment. Dr. Portillo has reviewed this note and agrees with this plan of care. This note was dictated using voice recognition software and make contain errors or omissions. [facility] Disclaimer: The information contained in this section may have been updated after the patient was seen, as this information can be updated by other users. Medical History Impaired fasting glucose Hyperlipemia Cyst Contact dermatitis Right ankle sprain Abscess of lymph node of neck Surgical History History of oophorectomy History of endometrial ablation History of appendectomy History of tubal ligation History of partial hysterectomy Family History Mother Family history of myocardial infarction Hyperlipidemia Father Hyperlipidemia Social History Smoking Status: Former smoker tobacco type: cigarettes packs per day: 1 years smoked: 25 smoking status stop date: 12/29/2019 second hand exposure: Yes alcohol intake: never substance use type: denies use current occupational status: other Travel in the last 8 weeks: None household members: spouse housing: house current occupational exposures/hazards: No caffeine: Yes
== END 2023-09-04 23:59 | disposition home or self-care (01) ==
PROVIDERS: PCP Family Medicine; Visit Provider Nurse Practitioner Family
DX: R10.11 Right upper quadrant pain (principal); M79.10 Myalgia, unspecified site; M54.6 Pain in thoracic spine
CPT/HCPCS: 99212; G0463